=== PATIENT | male | born 1950 | race Caucasian/White ===

== ENCOUNTER → 2017-01-26 07:33 | Day surgery (SDC) | payer OTHER ==
[~2017-01-26 07:33] MED LIST: Buffered Lidocaine 1% SYRIN* 3 ML/SYR SYRINGE INTRADERM ONE; Bupivacaine 0.5% W/EPI SDV* 30 ML VIAL ONE; Clindamycin 900 MG IVPREMIX(* 900 MG/50 ML SDV IV ONE; Dexamethasone IV* 4 MG/ML 1 ML (4 MG) ONE; Famotidine IV* 10 MG/ML 2 ML (20 mg) IV ONE; Famotidine IV* 10 MG/ML 2 ML (20 mg) ONE; KETAMINE HCL* 50 MG/ML 10 ML VIAL ONE; Ketorolac INJ* 30 MG/ML 1 ML VIAL ONE; Lidocaine 1% INJ* 10 MG/ML 30 ML SDV ONE; Lidocaine 2% PF* 5 ML VIAL ONE; Metoclopramide TAB* 10 MG ONE; Metoclopramide TAB* 10 MG PO ONE; Midazolam* 1 MG/ML 2 ML VIAL (2 MG) ONE; Midazolam* 1 MG/ML 5 ML VIAL (5 MG) ONE; Ondansetron INJ* 2 MG/ML VIAL IV PRN; Ondansetron INJ* 2 MG/ML VIAL ONE; Propofol* 10 MG/ML 20 ML BTL IV PUSH ONE; fentaNYL* 50 MCG/ML 2 ML VIAL (100 MCG VIAL) IV PRN; fentaNYL* 50 MCG/ML 2 ML VIAL (100 MCG VIAL) ONE; oxyCODONE/Acetamin 5/325 MG* TAB PO PRN
--- NOTE | 2017-01-26 10:16 | SURGPN ---
Brief Operative Note - Surgery Procedures: Procedures OPERATIVE REPORT PRE-OP: Metastatic malignant melanoma Large subcutaneous mass left anterior chest POST-OP: Same PROCEDURE: Excision of large mass left anterior chest wall SURGEON: MD Natanael ANESTHESIA:Local with MAC Dr. Shine ASST: IVF:800 cc crystalloid EBL: min SPECIMEN: Left chest wall mass DRAIN: #8 WALE draina WOUND CLASS: One COMPLICATIONS: none TO PACU
[2017-01-26 10:54] VITALS: BP 114/71
--- NOTE | 2017-01-31 07:56 | OP ---
DATE OF OPERATION: 01/26/17 [facility] DATE OF : 54 SURGEON: Jordan Santoyo MD GREEN PIPEFITTER: None. ANESTHESIOLOGIST: Dr. Shine. ANESTHESIA: Local with monitored anesthesia care. PRE-OP DIAGNOSIS: Anterior superior left chest wall subcutaneous mass. POST-OP DIAGNOSIS: Anterior superior left chest wall subcutaneous mass. OPERATIVE PROCEDURE: Excision of subcutaneous 7 cm mass on the left anterior chest. ESTIMATED BLOOD LOSS: Minimal. WOUND CLASSIFICATION: One. COMPLICATIONS: None. SPECIMENS: A large 7 cm subcutaneous mass. BRIEF HISTORY: Fabrizio Vázquezlaura is a 66-year-old gentleman with a known history of longstanding metastatic melanoma being treated with the oncology service, who has had a growing subcutaneous mass in the left anterior chest. This is PET avid and presumed to be melanoma and has increased in size causing discomfort. He has requested excision with the understanding this is not a curative procedure, but a palliative procedure, to prevent further increase in pain, size, and appearance. DESCRIPTION OF PROCEDURE: Written informed consent was obtained. The left anterior chest was marked with indelible ink and preoperative antibiotics were administered. The patient was taken to the operating room, placed in the supine position. Sequential compression devices were placed in the lower extremities. Anesthesia was administered in the left upper chest, shoulder, and neck were prepped and draped in the usual sterile fashion. Time-out verification was completed. Next, 1% lidocaine mixed with 0.25% Marcaine was infiltrated over the palpable firm mass and a transverse incision of approximately 8 to 9 cm was made, carried down through the subcutaneous tissue. Here we entered a firm, darkish mass which I proceeded to excise with grossly negative margins including the surrounding fat. This did extend down to the pectoralis muscle and to achieve complete excision, I did remove the fascia and some of the underlying pectoralis muscle that was included with the specimen. This was quite firm and solid, and I highly suspect this to be a melanoma. The specimen was then sent to pathology. Hemostasis was assured. I placed a #7 WALE drain into the space and exited through a stab wound in the inferior portion of the chest wall. The wound was then closed in layers of 3-0 and 4-0 Polysorb suture. Steri-Strips and sterile dressings were applied. The patient tolerated the procedure well and was taken to the recovery room in stable condition. [id number]/[facility] #: [id number] EUGENIO
== END | disposition home or self-care (01) ==
LOC: OR 07:33
PROVIDERS: ATTEND Surgery
DX: C79.89 Secondary malignant neoplasm of other specified sites (principal); G47.33 Obstructive sleep apnea (adult) (pediatric); I10 Essential (primary) hypertension; E66.01 Morbid (severe) obesity due to excess calories; I25.10 Atherosclerotic heart disease of native coronary artery without angina pectoris; E78.00 Pure hypercholesterolemia, unspecified
CPT/HCPCS: 88307; A9270-GY; J1100; J1885; J2001; J2250; J2405; J2704; J3010

== ENCOUNTER 2017-03-20 19:34 | Emergency (ER) | payer OTHER ==
[2017-03-20] MEDS ORDERED: NS 0.9% 1000 ML* 1,000 ML IV ONE (19:47)
[2017-03-20 20:08] LABS: Urine Bacteria Absent (Absent); Urine Bilirubin Negative (Negative); Urine Glucose Negative (Negative); Urine Nitrite Negative (Negative)
--- NOTE | 2017-03-20 20:17 | RAD ---
INDICATION: Dizziness COMPARISON: CT January 24, 2017, chest x-ray February 08, 2016 TECHNIQUE: PA and lateral dual-energy views were obtained. FINDINGS: Bones/Soft Tissues: There are no acute bony findings. There is a right-sided [id number] catheter. Cardiomediastinal: The cardiomediastinal silhouette is normal. Lungs: There are multiple lung parenchymal masses with a dominant mass in the right lung base. This represents a previously documented imaging finding in this patient with melanoma. Pleura: There are no pleural effusions. Other: None IMPRESSION: NO ACUTE CHANGE. LUNG METASTASIS REPRESENTING A KNOWN FINDING
[2017-03-20 20:28] LABS: Hematocrit 30 % (42-52); Hemoglobin 9.8 g/dl (14.0-18.0); Mean Corpuscular HGB Conc 33 g/dl (31-36); Mean Corpuscular Hemoglobin 28 pg (27-31); Mean Corpuscular Volume 85 fL (80-94); Mean Platelet Volume 7 um3 (7.4-10.4); Red Blood Count 3.48 10^6/ul (4.0-5.4); Red Cell Distribution Width 15 % (10.5-15)
[2017-03-20 20:44] LABS: Troponin I 0.01 ng/mL (<0.04)
[2017-03-20 20:53] LABS: Albumin 3.7 g/dL (3.2-5.2); BUN/Creatinine Ratio 13.3 (8-20); Calcium 9.3 mg/dL (8.6-10.3); EGFR Non-African American 93.3 (>60); Globulin 3.6 g/dL (2-4); Potassium 4.1 mmol/L (3.5-5.0); Total Bilirubin 0.3 mg/dL (0.2-1.0); Total Protein 7.3 g/dL (6.4-8.9)
[2017-03-20 21:17] LABS: TSH (Thyroid Stimulating Horm) 6.83 mcIU/mL (0.34-5.60)
--- NOTE | 2017-03-20 21:46 | ED ---
cinthia Armenta Timothy, scribed for Norris Sterling MD on 03/20/17 at 1946 . Dizziness - HPI Summary HPI Summary: Fabrizio Rubalcava is a 66 yo male presenting to [facility] with dizziness since 1930 today. He states he also experienced tunnel vision. He states he also had a back muscle spasm. He was light-headed and diaphoretic, but did not experience syncope. The entire episode lasted approximately 10 minutes. He states he gets lightheaded when his BP exceeds 110. Pt states he had a similar experience yesterday, which was less intense. He has been on a new drug for melanoma Tx for the past week. His MHx includes HLD, HTN, COPD, asthma, Powerport surgery, CPAP, obstructive bowel, renal calculi, Melanoma stage IV, gamma knife radiation therapy 08/2016, shingles. - History Of Current Complaint Stated Complaint: DIZZINESS Time Seen by Provider: 03/20/17 19:42 Hx Obtained From: Patient Onset/Duration: Still Present Timing: Intermittent Episode Lasting - 10 minutes Severity Initially: Moderate Severity Currently: Moderate Character: Lightheaded, Dizzy Associated Signs And Symptoms: Positive: Diaphoresis, Visual Changes - tunnel vision, Other: - dizziness, back muscle spasm - Allergies/Home Medications Allergies/Adverse Reactions: Allergies Allergy/AdvReac Type Severity Reaction Status Date / Time Penicillins Allergy Mild Rash Verified 01/26/17 07:59 Atropine Allergy See Comment Verified 03/20/17 20:50 Dextromethorphan AdvReac Mild drowsy Verified 01/26/17 07:59 Hydrocodone [From Tussionex] AdvReac Mild See Comment Verified 01/26/17 07:59 Phenyltoloxamine AdvReac Mild See Comment Verified 01/26/17 07:59 [From Tussionex] PMH/Surg Hx/FS Hx/Imm Hx Endocrine/Hematology History: Denies: Hx Diabetes, Hx Systemic Lupus Erythematosus Cardiovascular History: Reports: Hx Hypercholesterolemia, Hx Hypertension - MANAGED BY MEDICATION Denies: Hx Congestive Heart Failure, Hx Pacemaker/ICD Respiratory History: Reports: Hx Asthma, Hx Chronic Obstructive Pulmonary Disease (COPD), Hx Sleep Apnea GI History: Reports: Hx Obstructive Bowel, Other GI Disorders - pancreatitis after last 2 surgeries History: Reports: Hx Kidney Stones - 5 years ago Denies: Hx Dialysis, Hx Renal Disease - calculi rt side Musculoskeletal History: Denies: Hx Rheumatoid Arthritis Sensory History: Reports: Hx Contacts or Glasses - glasses Denies: Hx Hearing Aid Opthamlomology History: Reports: Hx Contacts or Glasses - glasses Neurological History: Reports: Hx Headaches - r/t neck pain Psychiatric History: Denies: Hx Panic Disorder - Cancer History Cancer Type, Location and Year: MALIGNANT melanoma top of head 2007.reoccurrance 2013-multiple spots. Hx Chemotherapy: Yes - gamma knife radiation to tumor in brain 08/2016 - Surgical History Surgery Procedure, Year, and Place: 1957-TONSILECTOMY ILL. 1962- APPY HERNIA ILL. 1984- LEFT KNEE ARTHROSCOPY [facility] [place]. 1986 4 IMP 3RD MOLARS [facility] [place] 1986 VASECTOMY OFC HERNIA REPAIR. 1994 UMBILICAL HERNIA [facility] [place] 1996 ARTHROSCOPY [facility] [place] 2004 DEVIATED NASAL SEPTUM [facility] [place]. 2005 INGUINAL HERNIA [facility] [place] 2007 LAP ADRI FUNDLIPICATION STRONG. 2007 MALIGNANT MELANOMA excision, 05/2011 ventral hernia repair, 11/2012 shockwave lithrtripsy kidney stone, treatment for malignant melanoma 2013, 2014 POWER PORT RIGHT CHEST WALL. 02/14/16 RESECTION SMALL INTESTINE OBSTRUCTION, had pancreatitis, 08/2016 gamma knife radiation to brain [facility], 11/2016 [place], shunt in bile duct, then developed pancreatitis Hx Anesthesia Reactions: No Infectious Disease History: Reports: Hx Shingles Denies: Hx Clostridium Difficile, Hx Hepatitis, Hx Human Immunodeficiency Virus (HIV), Hx of Known/Suspected MRSA, Hx Tuberculosis, Hx Known/Suspected VRE , Hx Known/Suspected VRSA, History Other Infectious Disease, Traveled Outside the [place] in Last 30 Days - Family History Known Family History: Positive: Cardiac Disease, Hypertension Negative: Diabetes - Social History Alcohol Use: Rare Substance Use Type: Reports: None Hx Tobacco Use: No Smoking Status (MU): Never Smoked Tobacco Have You Smoked in the Last Year: No Review of Systems Positive: Skin Diaphoresis Positive: Other - tunnel vision ENT: Negative Cardiovascular: Negative Respiratory: Negative Gastrointestinal: Negative Genitourinary: Negative Musculoskeletal: Other - back muscle spasm Skin: Negative Neurological: Other - dizzy lightheaded Negative: Syncope Psychological: Normal All Other Systems Reviewed And Are Negative: Yes Physical Exam Triage Information Reviewed: Yes Vital Signs On Initial Exam: Initial Vitals Resp 10 03/20/17 19:47 Vital Signs Reviewed: Yes Appearance: Positive: Well-Appearing, No Pain Distress Skin: Positive: Warm Head/Face: Positive: Normal Head/Face Inspection Eyes: Positive: EOMI, BAY, Conjunctiva Clear ENT: Positive: Hearing grossly normal Neck: Positive: Supple, Nontender Respiratory/Lung Sounds: Positive: Clear to Auscultation, Breath Sounds Present Cardiovascular: Positive: RRR Abdomen Description: Positive: Nontender, Soft Bowel Sounds: Positive: Present Musculoskeletal: Positive: Strength/ROM Intact Neurological: Positive: Alert, Oriented to Person Place, Time Psychiatric: Positive: Affect/Mood Appropriate Diagnostics - Vital Signs Vital Signs Temp Pulse Resp BP Pulse Ox 03/20/17 20:48 98.4 F 59 14 133/75 99 03/20/17 20:00 53 17 100 03/20/17 19:58 141/76 03/20/17 19:47 10 - Laboratory Lab Results: Lab Results 03/20/17 03/20/17 03/20/17 Range/Units 19:55 20:20 20:20 WBC 8.0 (3.5-10.8) 10^3/ul RBC 3.48 L (4.0-5.4) 10^6/ul Hgb 9.8 L (14.0-18.0) g/dl Hct 30 L (42-52) % MCV 85 (80-94) fL MCH 28 (27-31) pg MCHC 33 (31-36) g/dl RDW 15 (10.5-15) % Plt Count 278 (150-450) 10^3/ul MPV 7 L (7.4-10.4) um3 Neut % (Auto) 68.4 (38-83) % Lymph % (Auto) 20.0 L (25-47) % Lipscomb % (Auto) 8.4 (1-9) % Eos % (Auto) 2.6 (0-6) % Baso % (Auto) 0.6 (0-2) % Absolute Neuts (auto) 5.5 (1.5-7.7) 10^3/ul Absolute Lymphs (auto) 1.6 (1.0-4.8) 10^3/ul Absolute Monos (auto) 0.7 (0-0.8) 10^3/ul Absolute Eos (auto) 0.2 (0-0.6) 10^3/ul Absolute Basos (auto) 0 (0-0.2) 10^3/ul Absolute Nucleated RBC 0 10^3/ul Nucleated RBC % 0 Sodium 137 (133-145) mmol/L Potassium 4.1 (3.5-5.0) mmol/L Chloride 105 (101-111) mmol/L Carbon Dioxide 26 (22-32) mmol/L Anion Gap 6 (2-11) mmol/L BUN 11 (6-24) mg/dL Creatinine 0.83 (0.67-1.17) mg/dL Est GFR ( Amer) 120.0 (>60) Est GFR (Non-Af Amer) 93.3 (>60) BUN/Creatinine Ratio 13.3 (8-20) Glucose 122 H (70-100) mg/dL Lactic Acid (0.5-2.0) mmol/L Calcium 9.3 (8.6-10.3) mg/dL Magnesium 2.0 (1.9-2.7) mg/dL Total Bilirubin 0.30 (0.2-1.0) mg/dL AST 31 (13-39) U/L ALT 20 (7-52) U/L Alkaline Phosphatase 226 H (34-104) U/L Troponin I 0.01 (<0.04) ng/mL Total Protein 7.3 (6.4-8.9) g/dL Albumin 3.7 (3.2-5.2) g/dL Globulin 3.6 (2-4) g/dL Albumin/Globulin Ratio 1.0 (1-3) TSH 6.83 H (0.34-5.60) mcIU/mL Urine Color Yellow Urine Appearance Cloudy Urine pH 7.0 (5-9) Ur Specific Hazel 1.019 (1.010-1.030) Urine Protein 1+(30 mg/dl) H (Negative) Urine Ketones Negative (Negative) Urine Blood Negative (Negative) Urine Nitrate Negative (Negative) Urine Bilirubin Negative (Negative) Urine Urobilinogen Negative (Negative) Ur Leukocyte Esterase Negative (Negative) Urine WBC (Auto) Trace(0-5/hpf) (Absent) Urine RBC (Auto) 1+(3-5/hpf) H (Absent) Ur Squamous Epith Cells Present H (Absent) Urine Bacteria Absent (Absent) Urine Glucose Negative (Negative) 03/20/17 Range/Units 20:20 WBC (3.5-10.8) 10^3/ul RBC (4.0-5.4) 10^6/ul Hgb (14.0-18.0) g/dl Hct (42-52) % MCV (80-94) fL MCH (27-31) pg MCHC (31-36) g/dl RDW (10.5-15) % Plt Count (150-450) 10^3/ul MPV (7.4-10.4) um3 Neut % (Auto) (38-83) % Lymph % (Auto) (25-47) % Lipscomb % (Auto) (1-9) % Eos % (Auto) (0-6) % Baso % (Auto) (0-2) % Absolute Neuts (auto) (1.5-7.7) 10^3/ul Absolute Lymphs (auto) (1.0-4.8) 10^3/ul Absolute Monos (auto) (0-0.8) 10^3/ul Absolute Eos (auto) (0-0.6) 10^3/ul Absolute Basos (auto) (0-0.2) 10^3/ul Absolute Nucleated RBC 10^3/ul Nucleated RBC % Sodium (133-145) mmol/L Potassium (3.5-5.0) mmol/L Chloride (101-111) mmol/L Carbon Dioxide (22-32) mmol/L Anion Gap (2-11) mmol/L BUN (6-24) mg/dL Creatinine (0.67-1.17) mg/dL Est GFR ( Amer) (>60) Est GFR (Non-Af Amer) (>60) BUN/Creatinine Ratio (8-20) Glucose (70-100) mg/dL Lactic Acid 0.7 (0.5-2.0) mmol/L Calcium (8.6-10.3) mg/dL Magnesium (1.9-2.7) mg/dL Total Bilirubin (0.2-1.0) mg/dL AST (13-39) U/L ALT (7-52) U/L Alkaline Phosphatase (34-104) U/L Troponin I (<0.04) ng/mL Total Protein (6.4-8.9) g/dL Albumin (3.2-5.2) g/dL Globulin (2-4) g/dL Albumin/Globulin Ratio (1-3) TSH (0.34-5.60) mcIU/mL Urine Color Urine Appearance Urine pH (5-9) Ur Specific Hazel (1.010-1.030) Urine Protein (Negative) Urine Ketones (Negative) Urine Blood (Negative) Urine Nitrate (Negative) Urine Bilirubin (Negative) Urine Urobilinogen (Negative) Ur Leukocyte Esterase (Negative) Urine WBC (Auto) (Absent) Urine RBC (Auto) (Absent) Ur Squamous Epith Cells (Absent) Urine Bacteria (Absent) Urine Glucose (Negative) Result Diagrams: 03/20/17 20:20 03/20/17 20:20 Lab Statement: Any lab studies that have been ordered have been reviewed, and results considered in the medical decision making process. - Radiology CXR Xray Interpretation: No Acute Changes - IMPRESSION: NO ACUTE CHANGE. LUNG METASTASIS REPRESENTING A KNOWN FINDING Radiology Interpretation Completed By: Radiologist - EKG 2043 Cardiac Rate: NL - 55 BPM EKG Interpretation: NSR @ 55 BPM. Normal EKG. Re-Evaluation - Re-Evaluation First Eval Change: Improved - feels well, resulkts d/.w pt Dizzy Course/Dx - Course Assessment/Plan: Fabrizio Rubalcava is a 66 yo male presenting to [facility] with lightheadedness, tunnel vision, and diaphoresis for 10 mniutes today, accompanied by a spasm in his back muscles. He has stage IV melanoma. In the ED he received IV fluids. His CXR suggests no acute findings. His EKG suggests a normal EKG. After clinical examination and review of his lab and imaging studies , he will be discharged home with dizziness with appropriate instructions. - Diagnoses Provider Diagnoses: Dizziness Discharge - Discharge Plan Condition: Stable Disposition: HOME Patient Education Materials: Dizziness (ED) Referrals: Tiburcio Archibald MD [Primary Care Provider] - 2 Days Additional Instructions: Please follow up with your primary care physician regarding our visit to the emergency department today. Return to the emergency department with any new or recurring symptoms. The documentation as recorded by the cinthia katz Timothy accurately reflects the service I personally performed and the decisions made by me, Norris Sterling MD.
[2017-03-20 22:02] VITALS: BP 134/81
== END 2017-03-20 22:16 | disposition home or self-care (01) ==
LOC: ED 19:34
DX: R42 Dizziness and giddiness (principal); R61 Generalized hyperhidrosis
CPT/HCPCS: 36415; 71020; 80053; 81003; 81015; 83605; 83735; 84443; 84484; 85025; 93005; 99283

== ENCOUNTER 2017-06-08 23:40 | Inpatient (IN) | payer OTHER ==
[2017-06-09] MEDS ORDERED: NS 0.9% 1000 ML* 1,000 ML IV ONE (01:08)
[2017-06-09] MEDS ORDERED: Ondansetron INJ* 2 MG/ML VIAL IV ONE (01:10)
[2017-06-09] MEDS ORDERED: HYDROmorphone* 1 MG/ML 1 ML SYR IV SLOW PU ONE (01:10)
[2017-06-09 03:22] LABS: Hematocrit 28 % (42-52); Mean Corpuscular HGB Conc 32 g/dl (31-36); Mean Corpuscular Hemoglobin 26 pg (27-31); Mean Corpuscular Volume 80 fL (80-94); Mean Platelet Volume 8 um3 (7.4-10.4); Red Blood Count 3.51 10^6/ul (4.0-5.4); Red Cell Distribution Width 17 % (10.5-15); White Blood Count 7.3 10^3/ul (3.5-10.8)
[2017-06-09 03:43] LABS: Albumin 3.3 g/dL (3.2-5.2); BUN/Creatinine Ratio 11.5 (8-20); C Reactive Protein 59.51 mg/L (< 5.00); Calcium 9.2 mg/dL (8.6-10.3); EGFR African American 113.3 (>60); EGFR Non-African American 88.1 (>60); Globulin 3.7 g/dL (2-4); Potassium 3.7 mmol/L (3.5-5.0); Total Bilirubin 0.7 mg/dL (0.2-1.0)
[2017-06-09 03:44] LABS: Troponin I 0.01 ng/mL (<0.04)
[2017-06-09] MEDS ORDERED: Iohexol 300* (CONTRAST) 10 ML SDV IV ONE (04:01)
[2017-06-09 04:24] LABS: Urine Bilirubin Negative (Negative); Urine Glucose Negative (Negative); Urine Nitrite Negative (Negative)
--- NOTE | 2017-06-09 06:59 | ED ---
Anand Armenta SooYoung, scribed for Jose Ramon Cavazos on 06/09/17 at 0105 . Abdominal Pain/Male - HPI Summary HPI Summary: A 67 y/o M presents to ED with diffuse abd pain onset today SYSTEMS SPEC. Pert PMHx: pt had his bile stent replaced yesterday. He has it replaced every three months, and they admit him for observation for a night. He was released this afternoon, and on the drive home from [place] he began experience abd pain. Pt states it feels like he has gas. Rates his pain as 7 out of 10. Denies n/v. He took Tylenol at approx 2330. PMHx: pancreatitis, 6 months ago. Melanoma. - History of Current Complaint Chief Complaint: EDAbdPain Stated Complaint: ABD PAIN Time Seen by Provider: 06/09/17 00:56 Hx Obtained From: Patient Onset/Duration: Lasting Hours, Still Present Timing: Constant Severity Initially: Moderate Severity Currently: Moderate Pain Intensity: 7 Pain Scale Used: 0-10 Numeric Location: Diffuse, Umbilical Associated Signs And Symptoms: Negative: Nausea, Vomiting - Allergies/Home Medications Allergies/Adverse Reactions: Allergies Allergy/AdvReac Type Severity Reaction Status Date / Time Penicillins Allergy Mild Rash Verified 06/09/17 01:00 Atropine Allergy See Comment Verified 06/09/17 01:00 Dextromethorphan AdvReac Mild drowsy Verified 06/09/17 01:00 Hydrocodone [From Tussionex] AdvReac Mild See Comment Verified 06/09/17 01:00 Phenyltoloxamine AdvReac Mild See Comment Verified 06/09/17 01:00 [From Tussionex] PMH/Surg Hx/FS Hx/Imm Hx Previously Healthy: No Endocrine/Hematology History: Denies: Hx Diabetes, Hx Systemic Lupus Erythematosus Cardiovascular History: Reports: Hx Hypercholesterolemia, Hx Hypertension - MANAGED BY MEDICATION Denies: Hx Congestive Heart Failure, Hx Pacemaker/ICD Respiratory History: Reports: Hx Asthma, Hx Chronic Obstructive Pulmonary Disease (COPD), Hx Sleep Apnea GI History: Reports: Hx Obstructive Bowel, Other GI Disorders - pancreatitis after last 2 surgeries History: Reports: Hx Kidney Stones - 5 years ago Denies: Hx Dialysis, Hx Renal Disease - calculi rt side Musculoskeletal History: Denies: Hx Rheumatoid Arthritis Sensory History: Reports: Hx Contacts or Glasses - glasses Denies: Hx Hearing Aid Opthamlomology History: Reports: Hx Contacts or Glasses - glasses Neurological History: Reports: Hx Headaches - r/t neck pain Psychiatric History: Denies: Hx Panic Disorder - Cancer History Cancer Type, Location and Year: MALIGNANT melanoma top of head 2007.reoccurrance 2013-multiple spots. Hx Chemotherapy: Yes - gamma knife radiation to tumor in brain 08/2016 - Surgical History Surgery Procedure, Year, and Place: 1957-TONSILECTOMY ILL. 1962- APPY HERNIA ILL. 1984- LEFT KNEE ARTHROSCOPY [facility] [place]. 1986 4 IMP 3RD [facility] 1986 VASECTOMY OFC HERNIA REPAIR. 1994 UMBILICAL HERNIA [facility] [place] 1996 ARTHROSCOPY [facility] [place] 2004 DEVIATED NASAL SEPTUM [facility] [place]. 2005 INGUINAL HERNIA [facility] [place] 2007 LAP ADRI FUNDLIPICATION STRONG. 2007 MALIGNANT MELANOMA excision, 05/2011 ventral hernia repair, 11/2012 shockwave lithrtripsy kidney stone, treatment for malignant melanoma 2013, 2014 POWER PORT RIGHT CHEST WALL. 02/14/16 RESECTION SMALL INTESTINE OBSTRUCTION, had pancreatitis, 08/2016 gamma knife radiation to brain [facility], 11/2016 [facility], shunt in bile duct, then developed pancreatitis Hx Anesthesia Reactions: No - Immunization History Date of Tetanus Vaccine: utd Date of Influenza Vaccine: utd Infectious Disease History: No Infectious Disease History: Reports: Hx Shingles Denies: Hx Clostridium Difficile, Hx Hepatitis, Hx Human Immunodeficiency Virus (HIV), Hx of Known/Suspected MRSA, Hx Tuberculosis, Hx Known/Suspected VRE , Hx Known/Suspected VRSA, History Other Infectious Disease, Traveled Outside the [place] in Last 30 Days - Family History Known Family History: Positive: Cardiac Disease, Hypertension Negative: Diabetes - Social History Occupation: Employed Full-time Lives: With Family Alcohol Use: Rare Hx Substance Use: No Substance Use Type: Reports: None Hx Tobacco Use: No Smoking Status (MU): Never Smoked Tobacco Have You Smoked in the Last Year: No Review of Systems Negative: Fever Positive: Abdominal Pain. Negative: Vomiting, Nausea All Other Systems Reviewed And Are Negative: Yes Physical Exam Triage Information Reviewed: Yes Vital Signs On Initial Exam: Initial Vitals Temp Pulse Resp BP Pulse Ox 97.2 F 100 16 135/85 100 06/08/17 23:43 06/08/17 23:43 06/08/17 23:43 06/08/17 23:43 06/08/17 23:43 Vital Signs Reviewed: Yes Appearance: Positive: Well-Appearing, No Pain Distress Skin: Positive: Warm, Skin Color Reflects Adequate Perfusion, Dry Head/Face: Positive: Normal Head/Face Inspection Eyes: Positive: EOMI, BAY ENT: Positive: Normal ENT inspection Neck: Positive: Supple, Nontender Respiratory/Lung Sounds: Positive: Clear to Auscultation, Breath Sounds Present Cardiovascular: Positive: RRR, Pulses are Symmetrical in both Upper and Lower Extremities Abdomen Description: Positive: Soft, Distended, Other: - abd has diffuse tenderness Bowel Sounds: Positive: Present Musculoskeletal: Positive: Normal, Strength/ROM Intact Neurological: Positive: Normal, Sensory/Motor Intact, Alert, Oriented to Person Place, Time - [place] Coma Scale Coma Scale Total: 15 Diagnostics - Vital Signs Vital Signs Temp Pulse Resp BP Pulse Ox 06/08/17 23:47 98.1 F 72 16 136/85 100 06/08/17 23:43 97.2 F 100 16 135/85 100 - Laboratory Result Diagrams: 06/09/17 03:10 06/09/17 03:10 Lab Statement: Any lab studies that have been ordered have been reviewed, and results considered in the medical decision making process. - CT ABD/PEL CT CT Interpretation: Positive (See Comments) - IMPRESSION: SBO. See [facility] for full report. CT Interpretation Completed By: Radiologist Abdominal Pain Fem Course/Dx - Course Course Of Treatment: A 67 y/o M presents to ED with diffuse abd pain onset today SYSTEMS SPEC. Pert PMHx: pt had his bile stent replaced yesterday. He has it replaced every three months, and they admit him for observation for a night. He was released this afternoon, and on the drive home from [place] he began experience abd pain. Pt states it feels like he has gas. Rates his pain as 7 out of 10. Denies n/v. He took Tylenol at approx 2330. PMHx: pancreatitis, 6 months ago. Melanoma. Pt given fluids, diluadid and zofran in ED. Bloodwork results were without any significant abnormalities except alkaline phosphatase of 303; CRP of 59.51. UA results were negative except trace ketones present. ABD /PEL CT shows SBO. See [facility] for full report. Consulted with surgery recommends admission. SO to Dr. Harper pending consult with hospitalist. - Diagnoses Provider Diagnoses: Small bowel obstruction - Provider Notifications Discussed Care Of Patient With: Jordan Santoyo - Surgery Time Discussed With Above Provider: 06:47 Instructed by Provider To: Admit As Inpatient - Recommends admission Discharge - Discharge Plan Condition: Stable Disposition: OTHER Discharge Disposition Comment: SO to Dr. Harper pending consult with hospitalist Referrals: Tiburcio Archibald MD [Primary Care Provider] - The documentation as recorded by the Anand katz SooYoung accurately reflects the service I personally performed and the decisions made by , Jose Ramon Cavazos.
--- NOTE | 2017-06-09 08:13 | RAD ---
CLINICAL HISTORY: Abdominal pain, pancreatitis, history of malignant melanoma COMPARISON: January 24, 2017 TECHNIQUE: Multiple contiguous axial CT scans were obtained of the abdomen and pelvis after the administration of intravenous contrast. Coronal and sagittal multiplanar reformations are submitted for review. Oral contrast was administered. Delayed images were obtained through the abdomen and pelvis. FINDINGS: LUNG BASES: Again noted are nodules of the right lower lobe, progressed compared to the previous examination. LIVER: The liver is diffusely low in attenuation compared to the spleen. There are no focal hepatic parenchymal masses. BILE DUCTS: There is pneumobilia. A common duct stent is noted. GALLBLADDER: The gallbladder is normal, without pericholecystic inflammatory change. PANCREAS: There is ill-defined low attenuation of the pancreatic head at the level of the common duct. A biliary stent is noted as noted above, there is peripancreatic fluid along the tail of pancreas and extending along the anterior perirenal fascia. SPLEEN: Normal in size and appearance. UPPER GI TRACT: Evaluation of the gastrointestinal tract is limited by incomplete gastric distention. The upper GI tract is unremarkable. SMALL BOWEL AND MESENTERY: There is diffuse distention and dilatation of small bowel with a transition point to decompressed small bowel in the right lower abdomen. COLON: The colon is decompressed. ADRENALS: Normal bilaterally. KIDNEYS: Again noted is level related mass of lower pole of left kidney. This is increased in size compared to the previous examination. BLADDER: The bladder is incompletely distended but is grossly normal. PELVIC ORGANS: The prostate gland is normal. The seminal vesicles are symmetric. AORTA: The aorta is normal. IVC: Unremarkable LYMPH NODES: There are pathologic right iliac chain lymph node similar to the previous examination. ABDOMINAL WALL: There is soft tissue nodularity along the peritoneum is seen on axial image 87 and axial image 1.3 at the level of the umbilicus and supraumbilical abdominal wall. BONES AND SOFT TISSUES: Degenerative changes are noted OTHER: None IMPRESSION: 1. DILATED LOOPS OF BOWEL WITH TRANSITION POINT TO DECOMPRESSED SMALL BOWEL CONSISTENT WITH SMALL BOWEL OBSTRUCTION. 2. THERE HAS BEEN INTERVAL PROGRESSION OF A LEFT RENAL MASS IN RIGHT LOWER LOBE NODULES. THERE HAS BEEN INTERVAL DEVELOPMENT OF NODULARITY ALONG THE PERITONEAL OF THE ANTERIOR ABDOMINAL WALL WITH PROGRESSION OF METASTATIC DISEASE. 3. A BILIARY STENT IS NOTED. THERE IS PNEUMOBILIA. 4. LOCULATED PERIPANCREATIC FLUID COLLECTION CONSISTENT WITH DEVELOPING PSEUDOCYST. 5. THERE IS ILL-DEFINED SOFT TISSUE IN THE PANCREATIC HEAD SURROUNDING A BILIARY STENT. THIS MAY BE INFLAMMATORY OR REPRESENT METASTATIC DISEASE GIVEN THE HISTORY OF MALIGNANCY.
[2017-06-09] MEDS ORDERED: Acetaminophen SUPP* 650 MG SUPP PR PRN (10:23)
[2017-06-09] MEDS ORDERED: Metoclopramide IV* 5 MG/ML 2 ML VIAL IV PRN (10:24)
[2017-06-09] MEDS ORDERED: Ketorolac INJ* 15 MG/ML 1 ML VIAL IV PUSH PRN (10:25)
[2017-06-09 11:16] LABS: Magnesium 1.8 mg/dL (1.9-2.7)
--- NOTE | 2017-06-09 11:43 | CONS ---
CC: [facility]; Dr. Tiburcio Archibald; Dr. Easton Weathers. * CONSULTATION REPORT: DATE OF CONSULT: 06/09/17 REFERRING PROVIDER: Dr. Cavazos, emergency room physician. REASON FOR CONSULTATION: Small-bowel obstruction. 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 Weathers, who has a known metastatic malignant melanoma that has been treated for many years. His surgical history is significant for having a small-bowel obstruction that was treated with a laparotomy in January 2016, where there was noted to be a metastatic involvement of small bowel requiring a small bowel resection for treatment of this obstruction. He has done well. He has been followed by both Dr. Weathers as well as the oncologist at [facility] in [place] and he has recently been on immunotherapy. He has had biliary stents placed due to obstruction as well as ureteral stents placed in the past. He recently was in [place] where he underwent a routine stent placement with the ERCP. He was doing well and he was discharged home yesterday morning, drove back from [place], developed some abdominal crampiness with nausea and abdominal distention. The pain became more severe and he presented to the emergency room here early this morning. He states that he has been passing some flatus. He has had problems with constipation recently. He states that there has been concern about a persistent anemia requiring blood transfusion almost every several weeks of 2 units. He was to be scheduled for a colonoscopy to rule out source of blood loss, but this has not been arranged yet. In the emergency room, he was noted to be distended with generalized mild abdominal discomfort. CT scan of the abdomen and pelvis was obtained with oral and IV contrast, which showed a markedly distended stomach and proximal small bowel with distally collapsed small bowel with findings consistent with an acute small-bowel obstruction secondary to either adhesive disease or probable metastatic disease , which is known to be intraabdominal. There was no free air or significant amount of free fluid. The patient will be admitted to Dr. Weathers's oncology service with surgical consultation then obtained. PAST MEDICAL HISTORY: 1. Obstructive sleep apnea. 2. Metastatic melanoma. 3. Hypertension. 4. Obesity. 5. Coronary artery disease. 6. Hypercholesterolemia. PAST SURGICAL HISTORY: 1. Laparoscopic Shannan fundoplication. 2. Left inguinal hernia repair. 3. PowerPort insertion. 4. Resections of various melanomas along the abdomen, abdominal wall, chest wall, and scalp. 5. Appendectomy. 6. Abdominal wall hernia with mesh. MEDICATIONS: Include: 1. Oxycodone. 2. Levitra. 3. Flomax. 4. Singulair. 5. Nasonex. 6. Lopressor. 7. Flovent. 8. Susan. 9. Astelin. 10. Lipitor. ALLERGIES: PENICILLIN, TUSSIONEX, MOLD, COW'S MILK SOCIAL HISTORY: He is . 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 He does not use tobacco or alcohol. PHYSICAL EXAM: A well-developed, slightly overweight male, appears pale, but in no apparent distress. He is afebrile, pulse 85, blood pressure 133/81. Lungs were clear to auscultation with normal respiratory effort. His abdomen is soft, but distended. He had diminished bowel sounds throughout. He has well healed midline incision. There was an incisional hernia just above the umbilicus with the fascial defect of about 3 to 4 cm; however, this was easily reducible and only mildly tender. I appreciate no evidence of incarceration or strangulation. There is no generalized peritoneal irritation. LABORATORY DATA: Laboratory values include white blood cell count of 7, hemoglobin of 9, and MCV of 80. BUN and creatinine of 10 and 0.87. Lactic acid 0.8. C- reactive protein of 59. I did review the CT scan of the abdomen and pelvis. This does show marked distention of the proximal small bowel and stomach with some distally collapsed small bowel. These are consistent with a small-bowel obstruction possibly secondary to adhesive disease versus metastatic disease. Also we noted unknown left renal mass and some chronic changes in the area of the pancreas. He has a biliary stent in place. IMPRESSION: Small-bowel obstruction, acute. This may be secondary to acute adhesive disease, but the possibility of a metastatic melanoma exists. He has been doing fairly well and this was of a rather sudden onset, hopefully this will be adhesive disease and may respond to nonoperative management. PLAN: Plan is for him to be admitted to the oncology service. Nasogastric tube has been inserted. We will keep him n.p.o. and start him on IV fluids. Abdominal x-rays will be obtained in the morning. We will follow him clinically, certainly without improvement on the next 48 to 72 hours, decision will need to be made concerning possible surgical intervention. I discussed all this with the patient and his here at the bedside in the emergency room and they are well aware of the care and plan. [id number]/[facility] #: [id number] MTDD
--- NOTE | 2017-06-09 12:00 | HP ---
HISTORY AND PHYSICAL: DATE OF ADMISSION: 06/09/17 REASON FOR ADMISSION: Small bowel obstruction. HISTORY OF PRESENT ILLNESS: A 67-year-old male with longstanding history of metastatic melanoma. He has most recently been treated at the [facility] on clinical trial. He has a history of common bile duct obstruction and has stents placed every 3 months. He was at [facility] on , 2 days prior to admission, for stent replacement. This was done successfully and he stayed in the hospital overnight to be discharged Sunday morning. He went home yesterday and at that time was feeling well, eating and passing gas. He also had a bowel movement on Sunday morning. Yesterday evening, he started developing increasing abdominal distention and was not passing gas. He developed abdominal pain up to 7/10 that would come in waves. He had nausea. These symptoms were similar to prior small bowel obstruction, but were not like when he has had pancreatitis in the past. He came to the emergency room. He had a CT scan of the abdomen and pelvis. The CT showed dilated loops with a transition point in the right lower abdomen of the small bowel. Residual small bowel and colon was decompressed. It is not clear that there is a mass right at the transition point. He has history of peritoneal spread of his cancer and compared to January CT scan done at [facility], these were relatively stable. Some areas of modest progression, but no new lesions that I could see. He also has a lower pulmonary nodule, which is stable to decreased from his [place] CT scan. No evidence of biliary obstruction. He has had CBC with a white count 7.3, hemoglobin 9, MCV 80, platelets 311, and chemistries with a mildly elevated glucose of 149 and alkaline phosphatase of 303, otherwise unremarkable, lipase of 20. PAST MEDICAL HISTORY: 1. Metastatic melanoma. Followed in our clinic since 2008. He had recurrent disease in 2012. He has been treated with multiple courses of immunotherapy including nivolumab and ipilimumab, and nivolumab single agent, rechallenge of ipilimumab and nivolumab. He has had response to multiple immunotherapies, but consistent progression on PD1 agent alone. He is now on clinical trial with Endostat and pembrolizumab. He is on trial studies since February and has had stable CT scans thus far. 2. History of GI bleed. Multiple episodes of GI bleed in the past and recently has had several transfusions up at [facility], remains guaiac positive. 3. Hypertension. 4. Asthma. 5. Chronic allergies. 6. High cholesterol. PAST SURGICAL HISTORY: Multiple valve surgeries in the past including resection for small bowel obstruction in February 2016 at [facility]. MEDICATIONS: 1. Sucralfate 10 mL q.6. 2. Ramipril 2.5 mg daily. 3. Poly Iron 150 a day. 4. Pantoprazole 40 b.i.d. 5. Pancreas 36,000 units with meals. 6. Multivitamin once a day. 7. Synthroid 175 mcg a day. 8. Levemir Insulin 7 units in the morning and 5 units at night. 9. NovoLog insulin 1-5 units depending on her blood sugar when she is eating. 10. Docusate 100 b.i.d. 11. Vitamin D 2000 a day. 12. Calcium supplement. 13. Lipitor 10 mg a day. 14. Atenolol 25 mg daily. 15. Ascorbic acid 500 mg a day. 16. Tylenol 650 q.4 p.r.n. ALLERGIES: PENICILLIN, ATROPEN, DEXAMETHASONE, HYDROCODONE and NARCOTICS cause severe constipation. FAMILY HISTORY: He has a family history of narcotic-induced constipation in his father. No significant malignancy history. 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 He is and his is his primary social support. No smoking. No drinking. REVIEW OF SYSTEMS: Abdominal distention, nausea. Some fatigue. He has had shortness of breath over the past several months intermittently whenever he becomes anemic. R86-cydiv review of system is otherwise negative. PHYSICAL EXAMINATION VITAL SIGNS: Temperature 98.1, pulse 72, respirations 16, BP 142/86. HEENT: Mucosa moist. No lesions. Conjunctivae pale. NECK: No cervical or supraclavicular lymphadenopathy. LUNGS: Clear to auscultation bilaterally. HEART: Regular rate and rhythm. S1, S2. No murmurs, rubs or gallops. ABDOMEN: Distended. No bowel sounds. He is moderately tender. He has a ventral hernia. No rebound or guarding. EXTREMITIES: No clubbing, cyanosis, or edema and good pulses x4. NEUROLOGIC: Grossly nonfocal, alert and oriented x3. SKIN: No palpable or cutaneous lesions, but full exam not done. LABORATORY DATA: As noted above. ASSESSMENT AND PLAN: A 67-year-old male with history of metastatic melanoma with peritoneal disease. He has had multiple lines of immunotherapy and currently on trial at [facility], presents with small bowel obstruction. Differentials for small bowel obstruction include adhesions as well as progressive peritoneal disease. I agree with Dr. Santoyo that observation is the best course. 1. Small bowel obstruction: We will put him on IV fluids, n.p.o., and we will keep the NG tube. Check a chest and abdominal x-ray tomorrow morning. I am hopeful that he clears up. We will hold on TPN at this time, but may start over the weekend if he shows no signs of improvement. We will place him on IV Protonix. 2. Pain: No narcotics. We have written for Tylenol suppository and we can use IV Toradol sparingly, no history of GI bleed and normal renal function. 3. Fluids, electrolytes, and nutrition: He will be on IV fluids. Potassium slightly over 3.7, we will check magnesium and give IV repletion as needed. 4. Melanoma. Currently on clinical trial and we will send all records to [facility]. 5. GI bleed. Hemoglobin 9 today. We will check retic count and iron studies. Consider IV iron while he is here. He was scheduled for an outpatient colonoscopy to look for a lower GI source of blood loss, and then we will reschedule that test after this event resolves. 6. Full code. Remains with a good performance status. 7. High-risk DVT and prophylaxis per protocol. [id number]/[facility] #: [id number] MTDD
[2017-06-09 12:05] LABS: Ferritin 12.3 ng/mL (24-336)
[2017-06-09] MEDS: NS 0.9% 1000 ML* 1,000 ML IV SCH ×2 (12:56→22:52)
[2017-06-09] MEDS: Enoxaparin(*) 40 MG/0.4 ML SYR SUBCUT SCH (12:59)
[2017-06-10 07:17] LABS: Corrected Retic Count 1.7 % (0.5-1.5); Immature Retic Fraction 0.58
[2017-06-10] MEDS ORDERED: Magnesium Sulfate 2 GM IV* 2 GM/50 ML BAG IVPB ONE (07:17)
[2017-06-10 08:11] LABS: Calcium 8.7 mg/dL (8.6-10.3); EGFR African American 110.3 (>60); EGFR Non-African American 85.8 (>60); Magnesium 1.8 mg/dL (1.9-2.7); Potassium 3.5 mmol/L (3.5-5.0)
[2017-06-10 08:22] LABS: TSH (Thyroid Stimulating Horm) 1.84 mcIU/mL (0.34-5.60)
[2017-06-10] MEDS: NS 0.9% 1000 ML* 1,000 ML IV SCH ×2 (08:33→20:31)
[2017-06-10 08:56] LABS: Hematocrit 24 % (42-52); Hemoglobin 7.7 g/dl (14.0-18.0); Mean Corpuscular Hemoglobin 26 pg (27-31); Mean Corpuscular Volume 81 fL (80-94); Red Blood Count 2.99 10^6/ul (4.0-5.4); White Blood Count 4.7 10^3/ul (3.5-10.8)
[2017-06-10 08:57] LABS: Mean Corpuscular HGB Conc 32 g/dl (31-36); Mean Platelet Volume 8 um3 (7.4-10.4); Red Cell Distribution Width 18 % (10.5-15)
--- NOTE | 2017-06-10 10:03 | RAD ---
INDICATION: Small bowel obstruction COMPARISON: CT June 09, 2017 TECHNIQUE: Erect and supine views of the abdomen are submitted. FINDINGS: Bones: There are no acute bony findings. Soft tissues: The soft tissues appear normal. The psoas margins are sharp. Bowel gas pattern: The stomach is decompressed by nasogastric tube. There are several dilated loops of small bowel scattered air-fluid levels can consistent with a partial small bowel obstruction. The degree of dilatation is less pronounced than at the time of recent CT imaging. There is contrast within the colon which is normal in caliber. Calcifications: There are no abnormal calcifications. Other: There is a biliary stent. IMPRESSION: PARTIAL SMALL BOWEL OBSTRUCTION WITH IMPROVEMENT. SUGGEST CONTINUED FOLLOW-UP.
--- NOTE | 2017-06-10 10:22 | PN ---
Progress Note - Progress Note Date of Service: 06/10/17 SOAP: Subjective: [Better, has been passing gas and has less pain in abd. Pain to 2/10 down from 7 /10. Less distended Acetaminophen (Tylenol Supp*) 650 mg DE Q4H PRN PRN Reason: PAIN Enoxaparin Sodium (Lovenox(*)) 40 mg SUBCUT Q24H [facility] Last Admin: 06/09/17 12:59 Dose: 40 mg Sodium Chloride (Ns 0.9% 1000 Ml*) 1,000 mls @ 100 mls/hr IV PER RATE [facility] Last Admin: 06/10/17 08:33 Dose: 100 mls/hr Ferric Sodium Gluconate Complex 125 mg/ Sodium Chloride 110 mls @ 110 mls/hr IVPB DAILY [facility] Stop: 06/14/17 09:59 Magnesium Sulfate 3 gm/ Sodium (Chloride) 106 mls @ 53 mls/hr IVPB ONCE ONE Stop: 06/10/17 10:33 Last Admin: 06/10/17 10:15 Dose: Not Given Ketorolac Tromethamine (Toradol Inj*) 15 mg IV PUSH Q6H PRN PRN Reason: PAIN Metoclopramide HCl (Reglan Iv*) 10 mg IV Q6H PRN PRN Reason: NAUSEA/VOMITING Pantoprazole Sodium (Protonix Iv*) 40 mg IV DAILY [facility] ] Objective: [ Vital Signs Temp Pulse Resp BP Pulse Ox 97.6 F 71 18 143/63 95 06/10/17 07:36 06/10/17 07:36 06/10/17 07:52 06/10/17 07:36 06/10/17 07:36 HEENT - NGT, clear fluid CTA RRR S1S2 Abd - less distended, scattered bs. non tender Ext - no edema, warm ] Assessment: []67 year old with metastatic melanoma and peritoneal disease. SBO after CBD stent. Improved over past 12 yrs. Plan: []1. Check ABD XR today 2. Clamp NGT now and follow through day. If no nausea this evening will pull and try clear liquids 3. Mg IV 2 gm today.
[2017-06-10] MEDS: Pantoprazole IV* 40 MG IV SCH (10:34)
[2017-06-10] MEDS: Enoxaparin(*) 40 MG/0.4 ML SYR SUBCUT SCH (10:34)
--- NOTE | 2017-06-10 13:27 | PN ---
Progress Note - Progress Note Date of Service: 06/10/17 SOAP: Subjective: He is passing flatus and had his NGT clamped earlier. He is having crampy pain and reports tenderness, but improved from yesterday. No nausea. He states he cannot vomit due to prior Shannan. Objective: Vital Signs Temp 97.7 F 06/10/17 11:38 Pulse 78 06/10/17 11:38 Resp 14 06/10/17 11:38 BP 140/63 06/10/17 11:38 Pulse Ox 95 06/10/17 11:38 NAD Abd: Soft, min distended, min tender. Intake & Output 06/09/17 06/10/17 06/10/17 18:59 06:59 18:59 Intake Total 0 980 Output Total 950 2050 300 Balance -950 -1070 -300 Weight 215 lb Intake: IV Fluids 980 NS (0.9%) 980 Oral 0 0 Output: NG Tube Drainage Amount 100 1050 Urine 850 1000 300 Other: # Bowel Movements 0 AXR: dilated SB loops with AF levels. Contrast in colon. Assessment: resolving SBO. Plan: Agree with clamping trial. Will follow.
[2017-06-10] MEDS ORDERED: Benzocaine/Menthol LOZ* 1 LOZENGE MT PRN (18:56)
[2017-06-11] MEDS: NS 0.9% 1000 ML* 1,000 ML IV SCH ×2 (05:35→16:03)
[2017-06-11 05:57] LABS: Hematocrit 25 % (42-52); Hemoglobin 7.9 g/dl (14.0-18.0); Mean Corpuscular HGB Conc 31 g/dl (31-36); Mean Corpuscular Hemoglobin 25 pg (27-31); Mean Corpuscular Volume 81 fL (80-94); Mean Platelet Volume 7 um3 (7.4-10.4); Red Cell Distribution Width 17 % (10.5-15); White Blood Count 4.3 10^3/ul (3.5-10.8)
[2017-06-11 06:09] LABS: BUN/Creatinine Ratio 8.6 (8-20); Calcium 8.4 mg/dL (8.6-10.3); EGFR Non-African American 95.6 (>60); Magnesium 2.2 mg/dL (1.9-2.7); Potassium 3.4 mmol/L (3.5-5.0)
[2017-06-11] MEDS: Pantoprazole IV* 40 MG IV SCH (09:07)
[2017-06-11] MEDS: KCL 20 MEQ/100 ML IVPREMIX* 20 MEQ/100 ML BAG IV SCH ×3 (10:33→19:59)
--- NOTE | 2017-06-11 10:48 | PN ---
Progress Note - Progress Note Date of Service: 06/11/17 SOAP: Subjective: []Better. Tolerated clear liquids and had BM this am. Pain improved, still not at baseline Acetaminophen (Tylenol Supp*) 650 mg VT Q4H PRN PRN Reason: PAIN Enoxaparin Sodium (Lovenox(*)) 40 mg SUBCUT Q24H [facility] Last Admin: 06/10/17 10:34 Dose: 40 mg Sodium Chloride (Ns 0.9% 1000 Ml*) 1,000 mls @ 100 mls/hr IV PER RATE [facility] Last Admin: 06/11/17 05:35 Dose: 100 mls/hr Ferric Sodium Gluconate Complex 125 mg/ Sodium Chloride 110 mls @ 110 mls/hr IVPB DAILY [facility] Stop: 06/14/17 09:59 Last Admin: 06/11/17 09:08 Dose: 110 mls/hr Potassium Chloride (Potassium Chloride 20 Meq/100 Ml Ivpremix*) 20 meq in 100 mls @ 50 mls/hr IV Q2H [facility] Stop: 06/11/17 14:59 Last Admin: 06/11/17 10:33 Dose: 25 mls/hr Ketorolac Tromethamine (Toradol Inj*) 15 mg IV PUSH Q6H PRN PRN Reason: PAIN Metoclopramide HCl (Reglan Iv*) 10 mg IV Q6H PRN PRN Reason: NAUSEA/VOMITING Pantoprazole Sodium (Protonix Iv*) 40 mg IV DAILY [facility] Last Admin: 06/11/17 09:07 Dose: 40 mg Throat Lozenges (Chloraseptic Kailey*) 1 kailey MT Q4H PRN PRN Reason: SORE THROAT Objective: [] Vital Signs Temp Pulse Resp BP Pulse Ox 98.0 F 63 16 108/52 94 06/11/17 07:10 06/11/17 07:10 06/11/17 07:47 06/11/17 07:10 06/11/17 07:10 HEENT - NGT, clear fluid CTA RRR S1S2 Abd - less distended, + bs. non tender Ext - no edema, warm Assessment: []67 year old with metastatic melanoma and peritoneal disease. SBO after CBD stent. Improving SBO Plan: []1. Adv to regular diet, eat light foods 2. DC NGT 3. KCL 40 meq 4. Discharge tonight if improving
--- NOTE | 2017-06-11 10:55 | PN ---
Progress Note - Progress Note Date of Service: 06/11/17 SOAP: Subjective: Feeling much better, less pain today. Tolerating clear liquids, passing flatus, had a BM this morning. Denies nausea or vomiting. NG clamped. Objective: Awake and alert, comfortable in bed, in NAD. VSS, afebrile Lungs CTA bilat. Heart RRR Abdomen soft, non-tender and mildly distended. Bowel sounds positive in all quadrants. No guarding or rigidity. Ext. without edema I/Os reviewed Labs reviewed, anemia of chronic disease Assessment: A 67 y/o male with resolving SBO, s/p CBD stent placement Plan: D/C NG tube Advance diet Ambulate as tolerated Likely home in AM
[2017-06-11] MEDS: Enoxaparin(*) 40 MG/0.4 ML SYR SUBCUT SCH (11:53)
[2017-06-12] MEDS: NS 0.9% 1000 ML* 1,000 ML IV SCH (02:12)
[2017-06-12 06:15] LABS: Hematocrit 24 % (42-52); Hemoglobin 7.6 g/dl (14.0-18.0); Mean Corpuscular HGB Conc 32 g/dl (31-36); Mean Corpuscular Hemoglobin 26 pg (27-31); Mean Corpuscular Volume 81 fL (80-94); Mean Platelet Volume 7 um3 (7.4-10.4); Red Blood Count 2.97 10^6/ul (4.0-5.4); Red Cell Distribution Width 17 % (10.5-15); White Blood Count 4.5 10^3/ul (3.5-10.8)
[2017-06-12 06:25] LABS: Albumin 2.7 g/dL (3.2-5.2); BUN/Creatinine Ratio 8.5 (8-20); Calcium 8.1 mg/dL (8.6-10.3); EGFR African American 121.3 (>60); EGFR Non-African American 94.3 (>60); Potassium 3.6 mmol/L (3.5-5.0); Total Bilirubin 0.4 mg/dL (0.2-1.0); Total Protein 5.7 g/dL (6.4-8.9)
--- NOTE | 2017-06-12 08:09 | PN ---
Progress Note - Progress Note Date of Service: 06/12/17 SOAP: Subjective: He continues to improve He is passing flatus and had a BM last night He tolerated some food last night He also still has a little abdominal pain. Objective: Temp Pulse Resp BP Pulse Ox 98.0 F 68 16 119/47 97 06/12/17 07:31 06/12/17 07:31 06/12/17 07:31 06/12/17 07:31 06/12/17 07:31 Intake & Output 06/10/17 06/11/17 06/12/17 06/13/17 06:59 06:59 06:59 06:59 Intake Total 980 3557 4727 Output Total 3000 2700 1225 Balance -2019 857 3502 Weight 215 lb Intake: IV Fluids 980 2742 1976 NS (0.9%) 980 2742 1975 IVPB 316 KCl 20 meq 316 Medicated IV 115 135 Ferric Gluconate 115 135 Oral 0 700 2300 Output: NG Tube Drainage Amount 1150 200 Urine 1850 2500 1225 Other: # Bowel Movements 0 1 Estimated Stool Amount Medium PEX: Comfortable Abd is soft and slightly distended. Bowel sounds are present and some are higher pitched. Mild generalized tenderness without guarding or rigidity. Assessment: SBO-improved and appears to be improving Metastatic malignant melanoma. Plan: Continue regular diet No surgical intervention OK for d/c from surgical standpoint.
[2017-06-12] MEDS: Pantoprazole IV* 40 MG IV SCH (11:57)
[2017-06-12] MEDS: Enoxaparin(*) 40 MG/0.4 ML SYR SUBCUT SCH (11:57)
[2017-06-12 12:11] VITALS: BP 131/63
--- NOTE | 2017-06-13 00:14 | DS ---
CC: Dr. Alex Osullivan at [facility] * DISCHARGE SUMMARY: DATE OF ADMISSION: 06/09/17 DATE OF DISCHARGE: 06/12/17 ATTENDING PHYSICIAN: Easton Weathers MD * (DICTATED BY ANGELY MACHADO NP) DISCHARGE DIAGNOSES: 1. Small bowel obstruction: Occurred status post common bile duct stent placement at [facility], resolved with medical management. 2. GI bleed: Currently pending workup with colonoscopy per [facility]. 3. Metastatic melanoma: Diagnosed in 2008, recurrent in 2012, currently on clinical trial with Endostat and pembrolizumab since February. 4. Hypertension: With GI bleed, he has had decreased BPs and now off BP medication. 5. Asthma and allergies: Stable with medications. DISCHARGE MEDICATIONS: 1. Acetaminophen 500 mg p.o. q.6 hours p.r.n. pain/headache. 2. Guaifenesin 600 mg p.o. q.a.m. p.r.n. cough. 3. Multivitamin 1 tab p.o. q.a.m. 4. Calcium carbonate/vitamin D 1 tab q.a.m. 5. Astelin 2 sprays intranasally q.a.m. 6. Singulair 10 mg p.o. q.a.m. 7. Potassium chloride 20 mEq p.o. q. evening. 8. Atorvastatin 20 mg p.o. q. evening. 9. Nasonex 50 mcg intranasally b.i.d. 10. Flovent 110 mcg inhaled b.i.d. 11. Lactobacilli 1 cap p.o. daily. 12. Susan 180 mg p.o. daily p.r.n. allergy symptoms. 13. Magnesium oxide 400 mg p.o. daily. 14. Flomax 0.4 mg p.o. q. evening. 15. Simethicone 80 mg after meal p.r.n. gas/bloating. 16. Oxycodone/acetaminophen 5/325 mg one tab p.o. q.6 hours p.r.n. pain. 17. Albuterol 110 mcg inhaled t.i.d. p.r.n. shortness of breath or wheezing. 18. STOP metoprolol. HOSPITAL COURSE: Please see admission note for full H and P; however, briefly, Mr. Rubalcava is well known to our service due to his unfortunate diagnosis of recurrent metastatic melanoma, now on clinical trial with [facility]. On , 06/07/17, the patient had successful placement of a stent in his common bile duct without obvious complications and he was discharged the following day on 06/08/17. He presented to were similar to his prior bowel obstruction and he presented to the ER. A CT scan obtained in the ER revealed dilated loops of a transition point at the right lower abdomen of the small bowel. He was admitted to the hospital for medical management. The following morning, an abdominal x-ray was obtained, which revealed some improvement of the partial small bowel obstruction. Surgical consultation was obtained on admission and the patient was followed closely by the surgical team. Over the next several days, Mr. Rubalcava continued to improve with medical management. By the day after admission, his NG tube was clamped and the following morning on 06/11/17, he had a bowel movement. Throughout his stay, Mr. Rubalcava's vital signs have been stable; however, he has had a slow, but steady decline in his H and H consistent with known GI bleed, being followed by [place]. He has had periodic blood transfusions; however, at this time, denies symptoms and would like to hold off if possible. Workup in the hospital also revealed a ferritin level of 12.3 and he was started on ferric sodium gluconate with a total of 5 doses planned. He will receive his third dose today and then come to the clinic for the last 2 doses. Plan of care was discussed at length with Mr. Rubalcava who has tolerated full diet without difficulty. He states his bloating is much improved and he continues to pass gas and he is having bowel movements daily. He will be discharged home with plan to return to the office for iron on Sunday and and then repeat CBC check on . He will follow up with Dr. Weathers in approximately 2 weeks depending on timing of workup for clinical trial. Mr. Rubalcava has requested that he call his team at [facility] in order to coordinate clinical trial treatments and further workup including possible colonoscopy. He denies need for any modifications to his medications and agrees that he has been taken off all antihypertensive medications at this time. TIME SPENT: Greater than 40 minutes spent with greater than 50% [id number] counseling. ANGELY MACHADO, [employer]PER PASTRY [id number]/[facility] #: [id number] [facility] SYSTEM[facility]ichele
== END 2017-06-12 14:45 | disposition home or self-care (01) | DRG 388 ==
LOC: ED 23:40 → SSU 06-09 10:19
PROVIDERS: ADMIT Internal Medicine Hematology & Oncology; ATTEND Internal Medicine Hematology & Oncology
PROC: 0D9670Z Drainage of Stomach with Drainage Device, Via Natural or Artificial Opening (ICD-10-PCS; principal; 2017-06-09)
DX: K56.69 Other intestinal obstruction (principal); K83.1 Obstruction of bile duct; C43.9 Malignant melanoma of skin, unspecified; C78.6 Secondary malignant neoplasm of retroperitoneum and peritoneum; I11.9 Hypertensive heart disease without heart failure; K92.2 Gastrointestinal hemorrhage, unspecified; I25.10 Atherosclerotic heart disease of native coronary artery without angina pectoris; E78.00 Pure hypercholesterolemia, unspecified; G47.33 Obstructive sleep apnea (adult) (pediatric); E66.9 Obesity, unspecified; J45.909 Unspecified asthma, uncomplicated; Z98.890 Other specified postprocedural states; Z91.09 Other allergy status, other than to drugs and biological substances; Z79.4 Long term (current) use of insulin; Z79.899 Other long term (current) drug therapy; Z88.5 Allergy status to narcotic agent; Z88.0 Allergy status to penicillin; Z88.8 Allergy status to other drugs, medicaments and biological substances; Z68.28 Body mass index [BMI] 28.0-28.9, adult
CPT/HCPCS: 36415; 74020; 74177; 80048; 80053; 81003; 82728; 83540; 83550; 83605; 83690; 83735; 84443; 84484; 85025; 85045; 85610; 85730; 86140; 87040; 99223; 99232; 99239; J1642; J1650; J2405; J2916; J3475; J3480; Q9967

== ENCOUNTER 2017-06-30 13:22 | Emergency (ER) | payer OTHER ==
[2017-06-30] MEDS ORDERED: NS 0.9% 1000 ML* 1,000 ML IV ONE (13:56)
[2017-06-30] MEDS ORDERED: LORazepam INJ* 2 MG/ML 1 ML VIAL IV ONE (13:56)
[2017-06-30 14:51] LABS: Hematocrit 25 % (42-52); Hemoglobin 8.1 g/dl (14.0-18.0); Mean Corpuscular HGB Conc 33 g/dl (31-36); Mean Corpuscular Hemoglobin 27 pg (27-31); Mean Corpuscular Volume 83 fL (80-94); Mean Platelet Volume 7 um3 (7.4-10.4); Red Blood Count 2.98 10^6/ul (4.0-5.4); Red Cell Distribution Width 20 % (10.5-15); White Blood Count 6.8 10^3/ul (3.5-10.8)
[2017-06-30 15:03] LABS: BUN/Creatinine Ratio 13.8 (8-20); C Reactive Protein 21.57 mg/L (< 5.00); Calcium 8.7 mg/dL (8.6-10.3); EGFR African American 124.8 (>60); Globulin 3.6 g/dL (2-4); Potassium 3.7 mmol/L (3.5-5.0); Total Bilirubin 0.4 mg/dL (0.2-1.0); Total Protein 6.6 g/dL (6.4-8.9)
[2017-06-30 18:33] VITALS: BP 125/73
--- NOTE | 2017-06-30 18:39 | ED ---
Salvatore Armenta Nikita, scribed for Gaurav Bauman MD on 06/30/17 at 1404 . Back Pain - HPI Summary HPI Summary: This patient is a 67 year old M BIBA to ED with a chief complaint of mid back pain since 0800 this morning. The CC is described as intermittent and radiates to the front and tightens around the rib cage. The patient rates the pain 8/10 in severity. Symptoms aggravated by lying on his side and movement. Symptoms alleviated by lying on his back and Ativan (given by Dr. Tavarez). Patient reports nausea and pallor. Patient denies bowel symptoms. PMHx of chronic back pain (for 20 years), bowel resection (tumor obstructing), melanoma metastic - on immune Tx, HTN, dyslipidemia, appendectomy, tonsillectomy, hernia Sx, knee Sx. Pt is in Stage IV Melanoma (R side). Pt is taking part of an experimental study but does not suspect any correlation between treatment and back pain. Pt is taking TRAMADOL, COMPAZINE, and TYLENOL. Pt saw Dr. Galdamez yesterday where he was low in hemoglobin. - History of Current Complaint Chief Complaint: EDBackInjuryPain Stated Complaint: BACK PAIN Time Seen by Provider: 06/30/17 13:46 Hx Obtained From: Patient Onset/Duration: Lasting Weeks - Chronic back pain, Still Present, Worse Since - 0800 Onset/Duration: Started Weeks Ago - Chronic back pain, Still Present, Worse Since - 0800 Timing: Intermittent Back Pain Location: Is Discrete @ - Mid sternal, Radiates To - front rib cage Severity Initially: Severe Severity Currently: Severe Pain Intensity: 8 Pain Scale Used: 0-10 Numeric Character: Unable to Describe - Tightening Aggravating Symptom(s): Movement - and lying on his side Alleviating Symptom(s): Position - lying on his back and Ativan (given by Dr. Tavarez) Associated Signs And Symptoms: Positive: Other - Patient reports nausea and pallor. Patient denies bowel symptoms. - Allergies/Home Medications Allergies/Adverse Reactions: Allergies Allergy/AdvReac Type Severity Reaction Status Date / Time Penicillins Allergy Mild Rash Verified 06/09/17 01:00 Atropine Allergy See Comment Verified 06/09/17 01:00 Dextromethorphan AdvReac Mild drowsy Verified 06/09/17 01:00 Hydrocodone [From Tussionex] AdvReac Mild See Comment Verified 06/09/17 01:00 Phenyltoloxamine AdvReac Mild See Comment Verified 06/09/17 01:00 [From Tussionex] PMH/Surg Hx/FS Hx/Imm Hx Endocrine/Hematology History: Reports: Hx Anemia Denies: Hx Diabetes, Hx Systemic Lupus Erythematosus Cardiovascular History: Reports: Hx Hypercholesterolemia, Hx Hypertension - no longer taking BP medications, Hx Syncope - due to low BP Denies: Hx Congestive Heart Failure, Hx Pacemaker/ICD Respiratory History: Reports: Hx Asthma, Hx Chronic Obstructive Pulmonary Disease (COPD), Hx Sleep Apnea GI History: Reports: Hx Gall Bladder Disease - bile stent d/t tumor on bile duct , Hx Obstructive Bowel, Other GI Disorders - pancreatitis after last 2 surgeries History: Reports: Hx Kidney Stones - 5 years ago Denies: Hx Dialysis, Hx Renal Disease - calculi rt side Musculoskeletal History: Reports: Hx Back Problems - chronic low back pain Denies: Hx Rheumatoid Arthritis Sensory History: Reports: Hx Contacts or Glasses Denies: Hx Hearing Aid Opthamlomology History: Reports: Hx Contacts or Glasses Neurological History: Reports: Hx Headaches - r/t neck pain Psychiatric History: Denies: Hx Panic Disorder - Cancer History Cancer Type, Location and Year: MALIGNANT melanoma top of head 2007.reoccurrance 2013-multiple spots. Hx Chemotherapy: Yes - gamma knife radiation to tumor in brain 08/2016 - Surgical History Surgery Procedure, Year, and Place: 1957-TONSILECTOMY ILL. 1962- APPY HERNIA ILL. 1984- LEFT KNEE ARTHROSCOPY [facility] [place]. 1986 4 IMP 3RD MOLARS [facility] [place] 1986 VASECTOMY OFC HERNIA REPAIR. 1994 UMBILICAL HERNIA [facility] 1996 ARTHROSCOPY [facility] [place] 2004 DEVIATED NASAL SEPTUM [facility] [place]. 2005 INGUINAL HERNIA [facility] 2007 LAP ADRI FUNDLIPICATION STRONG. 2008 MALIGNANT MELANOMA excision, 05/2011 ventral hernia repair, 11/2012 shockwave lithrtripsy kidney stone, treatment for malignant melanoma 2013, 2014 POWER PORT RIGHT CHEST WALL. 02/14/16 RESECTION SMALL INTESTINE OBSTRUCTION, had pancreatitis, 08/2016 gamma knife radiation to brain [facility], [facility], shunt in bile duct, then developed pancreatitis Hx Anesthesia Reactions: No - Immunization History Date of Tetanus Vaccine: utd Date of Influenza Vaccine: utd Infectious Disease History: No Infectious Disease History: Reports: Hx Shingles Denies: Hx Clostridium Difficile, Hx Hepatitis, Hx Human Immunodeficiency Virus (HIV), Hx of Known/Suspected MRSA, Hx Tuberculosis, Hx Known/Suspected VRE , Hx Known/Suspected VRSA, History Other Infectious Disease, Traveled Outside the [place] in Last 30 Days - Family History Known Family History: Positive: Cardiac Disease, Hypertension Negative: Diabetes - Social History Alcohol Use: Rare Hx Substance Use: No Substance Use Type: Reports: None Hx Tobacco Use: No Smoking Status (MU): Never Smoked Tobacco Have You Smoked in the Last Year: No Review of Systems Positive: Nausea, Other - NEGATIVE: bowel symptoms Positive: Other - chronic back pain, suddenly worsened since 0800, radiates to front rib cage Positive: Other - Pallor All Other Systems Reviewed And Are Negative: Yes Physical Exam Triage Information Reviewed: Yes Vital Signs On Initial Exam: Initial Vitals Temp Pulse Resp BP Pulse Ox 98.1 F 62 18 133/75 100 06/30/17 13:28 06/30/17 13:28 06/30/17 13:28 06/30/17 13:28 06/30/17 13:28 Vital Signs Reviewed: Yes Appearance: Positive: Well-Appearing, No Pain Distress Skin: Positive: Warm, Skin Color Reflects Adequate Perfusion, Dry Head/Face: Positive: Normal Head/Face Inspection Eyes: Positive: Normal ENT: Positive: Normal ENT inspection Neck: Positive: Supple, Nontender Respiratory/Lung Sounds: Positive: Clear to Auscultation, Breath Sounds Present Cardiovascular: Positive: RRR Abdomen Description: Positive: Nontender, Soft Bowel Sounds: Positive: Present Musculoskeletal: Positive: Normal Neurological: Positive: Normal, Sensory/Motor Intact, Alert, Oriented to Person Place, Time, CN Intact II-III Psychiatric: Positive: Affect/Mood Appropriate Diagnostics - Vital Signs Vital Signs Temp Pulse Resp BP Pulse Ox 06/30/17 13:28 98.1 F 62 18 133/75 100 - Laboratory Lab Results: Lab Results 06/30/17 06/30/17 Range/Units 14:30 14:30 WBC 6.8 (3.5-10.8) 10^3/ul RBC 2.98 L (4.0-5.4) 10^6/ul Hgb 8.1 L (14.0-18.0) g/dl Hct 25 L (42-52) % MCV 83 (80-94) fL MCH 27 (27-31) pg MCHC 33 (31-36) g/dl RDW 20 H (10.5-15) % Plt Count 296 (150-450) 10^3/ul MPV 7 L (7.4-10.4) um3 Neut % (Auto) 82.8 (38-83) % Lymph % (Auto) 7.1 L (25-47) % [place] % (Auto) 9.3 H (1-9) % Eos % (Auto) 0.4 (0-6) % Baso % (Auto) 0.4 (0-2) % Absolute Neuts (auto) 5.6 (1.5-7.7) 10^3/ul Absolute Lymphs (auto) 0.5 L (1.0-4.8) 10^3/ul Absolute Monos (auto) 0.6 (0-0.8) 10^3/ul Absolute Eos (auto) 0 (0-0.6) 10^3/ul Absolute Basos (auto) 0 (0-0.2) 10^3/ul Absolute Nucleated RBC 0 10^3/ul Nucleated RBC % 0 Sodium 136 (133-145) mmol/L Potassium 3.7 (3.5-5.0) mmol/L Chloride 104 (101-111) mmol/L Carbon Dioxide 27 (22-32) mmol/L Anion Gap 5 (2-11) mmol/L BUN 11 (6-24) mg/dL Creatinine 0.80 (0.67-1.17) mg/dL Est GFR ( Amer) 124.8 (>60) Est GFR (Non-Af Amer) 97.0 (>60) BUN/Creatinine Ratio 13.8 (8-20) Glucose 120 H (70-100) mg/dL Calcium 8.7 (8.6-10.3) mg/dL Total Bilirubin 0.40 (0.2-1.0) mg/dL AST 18 (13-39) U/L ALT 24 (7-52) U/L Alkaline Phosphatase 468 H (34-104) U/L C-Reactive Protein 21.57 H (< 5.00) mg/L Total Protein 6.6 (6.4-8.9) g/dL Albumin 3.0 L (3.2-5.2) g/dL Globulin 3.6 (2-4) g/dL Albumin/Globulin Ratio 0.8 L (1-3) Result Diagrams: 06/30/17 14:30 06/30/17 14:30 Lab Statement: Any lab studies that have been ordered have been reviewed, and results considered in the medical decision making process. Back Pain Course/Dx - Course Course Of Treatment: Mr. Rubalcava felt greatly improved with Ativan as muscle relazer and rehydration just as he did last week. He will F/U with Dr. Tavarez. - Diagnoses Provider Diagnoses: Back pain Discharge - Discharge Plan Condition: Stable Disposition: HOME Patient Education Materials: Back Pain (ED) Referrals: Easton Weathers MD [Medical Doctor] - 3 Days The documentation as recorded by the Salvatore katz Nikita accurately reflects the service I personally performed and the decisions made by me, Gaurav Bauman MD.
== END 2017-06-30 18:32 | disposition home or self-care (01) ==
LOC: ED 13:22
DX: R11.0 Nausea (principal); M54.9 Dorsalgia, unspecified; R23.1 Pallor
CPT/HCPCS: 36415; 80053; 85025; 86140; 96374; 99283; J1642; J2060

== ENCOUNTER 2017-07-10 13:34 | Inpatient (IN) | payer OTHER ==
[2017-07-10] MEDS ORDERED: HYDROmorphone INJ* 1 MG/ML CARPUJECT SYRINGE IV SLOW PU PRN (13:47)
[2017-07-10] MEDS ORDERED: Albuterol HFA INHALER* 8 gm MDI INH PRN (13:49)
[2017-07-10] MEDS: HYDROmorphone INJ* 1 MG/ML CARPUJECT SYRINGE IV SLOW PU PRN ×3 (14:44→21:29)
[2017-07-10] MEDS: Heparin VIAL(*) 5000 UNITS/ML VIAL (FIVE THOUSAND) SUBCUT SCH ×2 (14:50→21:28)
[2017-07-10] MEDS: NS 0.9% 1000 ML* 1,000 ML IV SCH (14:55)
[2017-07-10 16:54] LABS: Albumin 3.2 g/dL (3.2-5.2); BUN/Creatinine Ratio 19.5 (8-20); Calcium 9.6 mg/dL (8.6-10.3); EGFR African American 130.4 (>60); EGFR Non-African American 101.4 (>60); Globulin 4.1 g/dL (2-4); Potassium 3.5 mmol/L (3.5-5.0); Total Bilirubin 0.8 mg/dL (0.2-1.0); Total Protein 7.3 g/dL (6.4-8.9)
[2017-07-10] MEDS ORDERED: Iohexol 300* (CONTRAST) 10 ML SDV IV ONE (17:06)
--- NOTE | 2017-07-10 17:14 | RAD ---
HISTORY: NG tube placement COMPARISONS: February 18, 2017, June 10, 2017 VIEWS: 3: frontal portable view of the chest at 3:41 PM FINDINGS: LINES AND TUBES: A gastric tube is noted with the tip curved upon itself in the distal esophagus. A right internal jugular venous catheter is noted with the tip overlying the cavoatrial junction. CARDIOMEDIASTINAL SILHOUETTE: The cardiomediastinal silhouette is normal for portable technique. PLEURA: The costophrenic angles are sharp. No pleural abnormalities are noted. LUNG PARENCHYMA: Evaluation of the lung parenchyma is limited by technique. ABDOMEN: A biliary stent is noted. There is marked gastric distention BONES AND SOFT TISSUES: No bone or soft tissue abnormalities are noted. IMPRESSION: LINES AND TUBES ABOVE. MARKED GASTRIC DISTENTION PRELIMINARY FINDINGS WERE DISCUSSED WITH CARLOS ON 4 N. AT APPROXIMATELY 5:09 PM ON 2016.
[2017-07-10] MEDS: Ondansetron INJ* 2 MG/ML VIAL IV PRN (18:17)
--- NOTE | 2017-07-10 18:18 | RAD ---
HISTORY: The bowel obstruction, metastatic melanoma COMPARISONS: June 07, 2017 TECHNIQUE: Multiple contiguous axial CT scans were obtained of the chest, abdomen, and pelvis after the administration of intravenous contrast. Coronal and sagittal multiplanar reformations are submitted for review.. Oral contrast was not administered. Delayed images were obtained through the abdomen and pelvis. FINDINGS: CHEST NECK AND THYROID: The lower neck and thyroid are unremarkable. CHEST WALL: There is no lower cervical, axillary, or supraclavicular lymphadenopathy by size criteria. A right-sided chest port is noted HEART AND PERICARDIUM: The heart is unremarkable. AORTA AND PULMONARY VASCULATURE: The aorta and pulmonary vasculature are normal. MEDIASTINUM: There is no mediastinal lymphadenopathy by size criteria. AMINATA: There is no hilar lymphadenopathy by size criteria. AIRWAY AND ESOPHAGUS: The airway is unremarkable, without endobronchial filling defect. The esophagus is grossly normal. LUNG PARENCHYMA: Again noted is nodularity of the right lower lobe similar to the most recent previous examination PLEURA: There is trace left pleural effusion. BONES AND SOFT TISSUES: No bone or soft tissue abnormalities are noted. ABDOMEN/PELVIS: LIVER: The liver is normal in shape, size, contour, and attenuation. BILE DUCTS: There is pneumobilia. A biliary stent is noted. GALLBLADDER: The gallbladder is distended with gas. PANCREAS: Again noted is peripancreatic fluid along the tail of the pancreas. This similar to the previous examination.. Again noted is ill-defined hypoattenuation of the pancreatic head in the region of the stent. SPLEEN: Normal in size and appearance. UPPER GI TRACT: The stomach is markedly distended.. SMALL BOWEL \T\ MESENTERY: The small bowel is markedly distended. There is a loop of small bowel at the level of the jejunum containing mesenteric fat, vessels, and bowel loop within the lumen consistent with a large small bowel intussusception. The distal small bowel is decompressed. Again noted are multiple mesenteric implants that have progressed from the previous examination. COLON: The colon is normal in contour, course, caliber. There is no pericolonic inflammatory change. ADRENALS: Normal bilaterally. KIDNEYS: The kidneys are normal in shape, size, contour, and axis. There is no hydronephrosis or nephrolithiasis. BLADDER: The bladder is smooth in contour. PELVIC ORGANS: The prostate gland is normal. The seminal vesicles are symmetric. AORTA: There is calcific atherosclerotic disease of the abdominal aorta and its branches, without aneurysmal dilatation IVC: Unremarkable LYMPH NODES: There is no lymphadenopathy by size criteria. ABDOMINAL WALL: There is no evidence for abdominal wall hernia. BONES: There are mild diffuse degenerative changes. OTHER: None IMPRESSION: 1. SMALL BOWEL OBSTRUCTION WITH A LARGE SMALL BOWEL INTUSSUSCEPTION. 2. PROGRESSION OF PERITONEAL AND MESENTERIC METASTATIC DISEASE. 3. PERSISTENT RIGHT LOWER LOBE LUNG NODULES. PRELIMINARY FINDINGS WERE DISCUSSED WITH DR. CASTELAN AT APPROXIMATELY 6:14 PM ON 2016.
[2017-07-10] MEDS: Mometasone 220 MCG MDI INH SCH (20:25)
[2017-07-11] MEDS: NS 0.9% 1000 ML* 1,000 ML IV SCH (01:26)
[2017-07-11] MEDS: HYDROmorphone INJ* 1 MG/ML CARPUJECT SYRINGE IV SLOW PU PRN ×4 (03:08→10:19)
--- NOTE | 2017-07-11 03:42 | CONS ---
CC: [facility] * SURGICAL CONSULTATION: DATE OF CONSULTATION: 07/10/17 REASON FOR CONSULTATION: Small bowel obstruction. HISTORY OF PRESENT ILLNESS: This is a 67-year-old gentleman with a longstanding history of metastatic melanoma, who has been recently admitted on 06/09/17 with small bowel obstruction. He has a history of small bowel resection in January 2016 due to small bowel obstruction from metastatic melanoma. He has been known to have recurrent disease and is currently on a clinical trial at [facility]. He reports that since his last discharge from the hospital 3 weeks ago, he has not had normal bowel function, normal appetite or ability to eat due to abdominal distention and pain. He was seen at the [facility] office today with obstructive symptoms, worsening over the past day as he was admitted directly to the hospital. He underwent a CT scan of the chest, abdomen and pelvis, which revealed markedly distended small bowel from loop of jejunum possibly intussusception with decompressed distal small bowel. He has had multiple mesenteric implants, there was noted to have progression from the previous exam. The patient had a nasogastric tube placed with almost 2 L of fluid return and improvement in his pain. Based on these findings, a surgical consultation was requested. PAST MEDICAL HISTORY: Significant for metastatic melanoma, history of GI bleed (with plan to go to [facility] for upper and lower endoscopies tomorrow), hypertension, asthma, hypercholesterolemia, coronary artery disease. PAST SURGICAL HISTORY: Laparoscopic Shannan fundoplication, left inguinal hernia repair, PowerPort placement, multiple skin excisions for melanoma of abdomen, chest, and scalp, appendectomy, small bowel resection, and abdominal wall hernia repair with mesh. MEDICATIONS: 1. Tramadol. 2. Tamsulosin. 3. Simethicone. 4. Potassium. 5. Multivitamin. 6. Singulair. 7. Nasonex. 8. Magnesium oxide. 9. Mucinex. 10. Flovent. 11. Susan. 12. Calcium. 13. Astelin. 14. Albuterol. 15. Acetaminophen. ALLERGIES: PENICILLIN, ATROPINE, DEXTROMETHORPHAN, HYDROCODONE and PHENYLTOLOXAMINE. SOCIAL HISTORY: He is . 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 No tobacco or no alcohol use. FAMILY HISTORY: Noncontributory. PHYSICAL EXAMINATION: Vital Signs: Temperature is 97.4, pulse is 99. His respirations are 17 and blood pressure is 156/101. In general, he is in no acute distress. HEENT: Nasogastric tube is intact and anicteric sclerae. Abdomen is distended with multiple scars, soft. There is a firm mass in the umbilical region. It is soft and mildly tender with no rebound or guarding. Extremities are warm. LABORATORY DATA: The patient's CBC from 07/09/17 shows WBC of 11, hemoglobin 7.9, hematocrit of 25, platelet count of 299. His chemistries showed sodium of 133, potassium 3.5, platelet 98, carbon dioxide 27, BUN 15, creatinine 0.77, glucose of 209. CT scan repeated findings as above. IMPRESSION: This 67-year-old gentleman with metastatic melanoma, recurrent small bowel obstruction with findings of possible intussusception likely metastasis as etiology. He will require laparotomy to address this. PLANS AND RECOMMENDATIONS: I have discussed the plans with the patient, his and son who are at bedside. We discussed that surgery would be planned for 07/11/[address] Andrade. The patient was explained of the nature of the surgery would be dictated by the findings at the time of the exploration and would likely include bowel resection, but may include additional procedures as indicated. The patient had an opportunity to ask questions. All questions were answered. He is in agreement with the plan to proceed with surgery. [id number]/[facility] #: [id number] MTDD
[2017-07-11] MEDS: Heparin VIAL(*) 5000 UNITS/ML VIAL (FIVE THOUSAND) SUBCUT SCH ×3 (04:56→23:00)
[2017-07-11 06:03] LABS: Hematocrit 29 % (42-52); Hemoglobin 9.6 g/dl (14.0-18.0); Mean Corpuscular HGB Conc 33 g/dl (31-36); Mean Corpuscular Hemoglobin 27 pg (27-31); Mean Corpuscular Volume 84 fL (80-94); Mean Platelet Volume 7 um3 (7.4-10.4); Red Blood Count 3.51 10^6/ul (4.0-5.4); Red Cell Distribution Width 21 % (10.5-15); White Blood Count 12.9 10^3/ul (3.5-10.8)
[2017-07-11 06:18] LABS: Albumin 2.8 g/dL (3.2-5.2); BUN/Creatinine Ratio 15.8 (8-20); Calcium 9.2 mg/dL (8.6-10.3); EGFR African American 132.4 (>60); EGFR Non-African American 102.9 (>60); Globulin 3.4 g/dL (2-4); Potassium 3.9 mmol/L (3.5-5.0); Total Bilirubin 0.6 mg/dL (0.2-1.0); Total Protein 6.2 g/dL (6.4-8.9)
[2017-07-11] MEDS: AZELASTINE HCL NASAL SCH (08:17)
[2017-07-11 11:48] LABS: Hematocrit 29 % (42-52); Hemoglobin 9.4 g/dl (14.0-18.0); Mean Corpuscular HGB Conc 32 g/dl (31-36); Mean Corpuscular Hemoglobin 27 pg (27-31); Mean Corpuscular Volume 84 fL (80-94); Mean Platelet Volume 7 um3 (7.4-10.4); Red Blood Count 3.46 10^6/ul (4.0-5.4); Red Cell Distribution Width 21 % (10.5-15); White Blood Count 11.2 10^3/ul (3.5-10.8)
[2017-07-11] MEDS ORDERED: ceFOXitin 2 GM IVPREMIX* 2 GM/50 ML BAG ONE (11:59)
--- NOTE | 2017-07-11 12:23 | PN ---
Progress Note - Progress Note Date of Service: 07/11/17 SOAP: Subjective: pt seen and examined. Chart and images reviewed. Case d/w Dr Mora and agree with dx=SBO possibly 2ary to malignant lesion. Objective: af tachy, normotensive abdo; soft/ mild distension, tender at Left, palp mass at umbilicus Ct: sbo, and other findings Assessment: SBO Plan: Exploratory laparotomy, possible bowel resection Palliative surgery pre op Abx Tobias to gravity R/B/A discussed and pt wishes to proceed. Possible complications reviewed and pt understands.
[2017-07-11] MEDS ORDERED: Cisatracurium* 2 MG/ML MDV 5 ML ONE ×2 (13:32→14:29)
[2017-07-11] MEDS ORDERED: fentaNYL* 50 MCG/ML 2 ML VIAL (100 MCG VIAL) ONE ×2 (13:32→15:52)
[2017-07-11] MEDS ORDERED: Propofol* 10 MG/ML 20 ML BTL IV PUSH ONE (13:32)
[2017-07-11] MEDS ORDERED: Lidocaine 2% PF * 5 ML VIAL ONE (13:32)
[2017-07-11 15:09] LABS: Hematocrit 31 % (42-52); Hemoglobin 9.6 g/dl (14.0-18.0)
[2017-07-11] MEDS ORDERED: Neostigmine Methylsulfate* 2 MG/2 ML SYRINGE ONE (16:05)
--- NOTE | 2017-07-11 16:35 | PN ---
Progress Note - Progress Note Date of Service: 07/11/17 Note: Brief Operative note: Preop Dx: SBO secondary to intussusception Postop Dx: same; above secondary to tumor implant Procedure: exploratory laparotomy; small bowel resection Anesthesia: ASHELY Surgeon: Lupe EBL: 100 - 150 ml fluids: 3000 ml crystalloid drains: none specimen: portion omentum x 2; portion small bowel x 2 findings: dictated
[2017-07-11] MEDS ORDERED: fentaNYL* 50 MCG/ML 5 ML VIAL (250 MCG VIAL) ONE (16:51)
[2017-07-11] MEDS: fentaNYL* 50 MCG/ML 2 ML VIAL (100 MCG VIAL) IV PRN ×3 (16:53→17:44)
[2017-07-11] MEDS ORDERED: HYDROmorphone PCA* 20 MG/20 ML PCA.SYRING PCA SCH (17:00)
[2017-07-11] MEDS ORDERED: HYDROmorphone PCA* 20 MG/20 ML PCA.SYRING ONE (18:02)
[2017-07-11] MEDS ORDERED: NS 0.9% 1000 ML* 1,000 ML IV ONE (19:52)
[2017-07-11] MEDS ORDERED: NS 0.9% 1000 ML* 1,000 ML IV SCH (19:58)
[2017-07-11] MEDS ORDERED: ceFOXitin 2 GM IVPREMIX* 2 GM/50 ML BAG IVPB SCH ×2 (20:00→23:15)
[2017-07-11] MEDS: Mometasone 220 MCG MDI INH SCH (20:55)
[2017-07-11] MEDS ORDERED: Alteplase (CATHFLO)* 2 MG VIAL IV ONE (21:14)
--- NOTE | 2017-07-11 21:20 | RAD ---
INDICATION: Fever and a postsurgical patient COMPARISON: Most recent comparison chest x-rays dated July 10, [address] chest abdomen and pelvis from the same date TECHNIQUE: Single AP portable view of the chest was obtained. FINDINGS: Image quality is compromised due to the relative inferiority of a portable chest x-ray. A gastric tube is seen overlying the midline mediastinum and terminating below the level the diaphragm at the expected location of the gastric antrum. A right internal jugular vein Mediport is seen with the tip at the cavoatrial junction. The heart and mediastinum are normal in size and contour. At the right lung base there is a 2.8 cm mass corresponding to multifocal nodularity seen on the recent CT examination. IMPRESSION: No radiographic evidence of acute cardiopulmonary [place]. A 2.8 cm nodule at the right lung base corresponds to the multinodular focus seen on the previous day's CT the chest.
[2017-07-11] MEDS: Ciprofloxacin 400MG IVPREMIX(* 400 MG/200 ML BAG IVPB SCH (21:57)
[2017-07-11 22:04] LABS: Hematocrit 30 % (42-52); Hemoglobin 9.7 g/dl (14.0-18.0); Mean Corpuscular HGB Conc 33 g/dl (31-36); Mean Corpuscular Hemoglobin 27 pg (27-31); Mean Corpuscular Volume 84 fL (80-94); Mean Platelet Volume 7 um3 (7.4-10.4); Red Blood Count 3.54 10^6/ul (4.0-5.4); Red Cell Distribution Width 20 % (10.5-15); White Blood Count 8.4 10^3/ul (3.5-10.8)
[2017-07-11 22:37] LABS: Urine Bilirubin Negative (Negative); Urine Nitrite Negative (Negative)
[2017-07-11 22:38] LABS: Urine Glucose Negative (Negative)
[2017-07-11 22:39] LABS: Urine Bacteria Absent (Absent)
[2017-07-11] MEDS: Acetaminophen SUPP* 650 MG SUPP PR PRN (22:43)
[2017-07-11] MEDS: metroNIDAZOLE IV 500 MG/100ML* 500 MG/100 ML BAG IVPB SCH ×2 (23:00→23:34)
[2017-07-11] MEDS: ceFOXitin 2 GM IVPREMIX* 2 GM/50 ML BAG IVPB SCH (23:24)
--- NOTE | 2017-07-12 03:22 | CONS ---
CC: Dr. Archibald; Dr. Weathers; Dr. Ascencio; Dr. Andrade * CONSULTATION REPORT: DATE OF ADMISSION: 07/10/17 DATE OF CONSULT: 07/11/17 PRIMARY CARE PROVIDER: Dr. Archibald. PRIMARY ONCOLOGIST: Dr. Weathers. REQUESTING PHYSICIAN FOR CONSULT: Dr. Ascencio. PRIMARY SURGEON: Dr. Andrade. ATTENDING PHYSICIAN WHILE IN THE HOSPITAL: Giuliana Hooper MD (report dictated by Aaron Mcclain NP) REASON FOR MEDICAL CONSULTATION: Evaluation of postoperative tachycardia. HISTORY OF PRESENT ILLNESS: Mr. Rubalcava is a 67-year-old male patient. He has a history of metastatic melanoma to his abdomen. He has had recurrent, this is the second, small bowel obstruction secondary to melanoma. He had an exploratory laparotomy a year ago with a resection. He underwent resection again today. He has recent GI bleed. He has a history of hypertension and hyperlipidemia, but since losing weight due to the cancer, he is off his medications for those medical problems. He presented to the [facility] office on with complaints of nausea, vomiting, worsening abdominal pain and was admitted directly to the hospital. He underwent CT chest, abdomen, and pelvis, which revealed markedly distended small bowel from the loop of the jejunum, possibly intussusception, and decompressed distal small bowel. NG tube was placed with 2 L of fluid out. He was followed by Surgery. It was felt that he would benefit from an exploratory laparotomy, which he underwent today. The patient postoperatively was noted to be tachycardic. He was evaluated. He says he has pain near the central line of his abdomen. No back pain other than his chronic pain. He denies having any shortness of breath or any chest pain. He says he does not feel lightheaded or like he is going to faint or pass out. He states, otherwise, he is feeling well. He denies feeling nauseated and he is not vomiting, but because of his tachycardia, we were asked to evaluate in consult. PAST MEDICAL HISTORY: Significant for: 1. Melanoma. 2. History of GI bleed. 3. Hypertension, again now no longer on medications. 4. Asthma. 5. History of seasonal allergies. 6. Hyperlipidemia. PAST SURGICAL HISTORY: 1. He has had bowel resections now twice. 2. He also has had a hernia repair, Shannan fundoplication. 3. He has had biliary stent placement, with removal and then replacement. 4. He has had tonsillectomy and appendectomy. HOME MEDICATIONS: His home meds according to the list that was provided includes: 1. Tramadol 50 mg every 6 hours as needed. 2. Flomax 0.4 mg p.o. daily. 3. Gas-X 80 mg p.o. after meals as needed. 4. Potassium 20 mEq p.o. daily. 5. Multivitamin 1 tablet p.o. daily. 6. Singulair 10 mg daily. 7. Nasonex 50 mcg nasally b.i.d. 8. Magnesium oxide 40 mg p.o. daily. 9. Mucinex 600 mg p.o. q.a.m. 10. Flovent 110 mcg inhaled b.i.d. 11. Fexofenadine 180 mg p.o. daily as needed. 12. Calcium carbonate 1 tablet p.o. daily. 13. Astelin 2 sprays nasally q.a.m. 14. Albuterol 110 mcg inhaled t.i.d. as needed. 15. Tylenol 1000 mg p.o. daily as needed. ALLERGIES: He is allergic to PENICILLIN, ATROPINE, DEXTROMETHORPHAN, HYDROCODONE, and TUSSIN. FAMILY HISTORY: Mother had a history of CT. Father had a history of perforated bowel. SOCIAL HISTORY: He does not smoke. He does not drink. Surrogate decision maker is his , Jodie. REVIEW OF SYSTEMS: There is a documented fever here of 38.4 Celsius. He denies having any chills with the exception when he came out of the OR, he was having chills. He denies having any lightheadedness. No rhinorrhea. No sore throat. No chest pain. No orthopnea. No nocturnal dyspnea. There is abdominal pain. He denies nausea or vomiting. He denied having any urinary symptoms. He denies any loss of consciousness or any seizure activities. Review of 14 systems completed, all others negative. PHYSICAL EXAMINATION: Vital Signs: Blood pressure 115/79, pulse 132, respirations 14, O2 sat 99%, and temperature was 38.4. General: At this time, Mr. Rubalcava is a 67-year-old male patient. He is sitting in the PACU bed. He does not appear to be in any acute distress. HEENT : Head atraumatic. Eyes: Sclerae anicteric. Neck is supple. Throat: Oral mucosa appears to be dry. No oropharyngeal erythema. Heart: Sounds S1, S2. He is tachycardic. Lungs: Clear to auscultation. Abdomen: Soft. Bowel sounds hypoactive. Tenderness elicited along the incision. Extremities: Pulses 2+ throughout. No peripheral edema, 5/5 strength. Neurologic: He is awake, alert, oriented x3. Tongue midline. Copy Messenger were equal. No gross focal deficits. Skin: Intact with the exception he has a midline abdominal incision. LABORATORY DATA: From today, WBC 11.2, RBC 3.46, hemoglobin 9.4, hematocrit 29 , and platelet count of 349. His repeat H and H at 3 o'clock was 9.6 and 31. INR 1.01, PTT 29.1. Sodium 134, potassium 2.9, chloride 100, bicarb 30, BUN 12 , creatinine 0.76, glucose 148, total bili 0.6, AST 20, ALT 99, alk phos 685, albumin of 2.8. DIAGNOSTIC STUDIES: He had a chest, abdomen, and pelvis CT done on admission, which revealed impression, small bowel obstruction with a large small bowel intussusception, progression of peritoneal and mesenteric metastatic disease, persistent right lower lung lobe nodules. Chest x-ray showed lines and tubes as above, marked gastric distention. EKG postop today showed a sinus tachycardia, rate of 128. He had ST depression in the anterior leads, but no ST elevations or T wave inversions were noted. Old medical records were reviewed. ASSESSMENT AND PLAN: Mr. Rubalcava is a 67-year-old male patient with a complex medical history coming to again surgical services today for exploratory laparotomy, status post small bowel resection. We were asked to evaluate in consult. Recommendations at this point: 1. Status post exploratory laparotomy with small bowel resection. I will defer the management of this to Dr. Andrade and his team. 2. Tachycardia with postop fever. I suspect that is what is driving the tachycardia. I am going to go ahead and give him OK Tylenol. I will go ahead and give him 2 L of fluid in addition to this. We will repeat the CBC. We will panculture him. I am going to put him on Cipro and Flagyl empirically. Further recommendations per Dr. Bollo. I will continue his cephalosporin per the SCIP protocol, and we will continue to follow. 3. Melanoma. Will continue to follow with Dr. Weathers. 4. History of GI bleed. No active bleed. At this point, we will monitor. 5. History of hypertension. Again, not an active issue. He currently not on meds. 6. Hyperlipidemia. Again, currently not an active issue. No longer on meds. 7. History of allergies and asthma. Continue meds as prescribed. 8. DVT prophylaxis. I am going to defer that to the primary team. 9. Code status. He is a full code. 10. Fluid, electrolytes, and nutrition. I am going to defer to the primary team. TIME SPENT: Time spent on the consult was approximately 60 minutes, greater than half that time was spent [id number] with the patient obtaining my history and physical, the other half time was spent going over the plan of care with the patient and implementing the plan of care. I discussed the plan of care with my attending, Dr. Hooper, she is in agreement. AARON MCCLAIN, SARA [id number]/[facility] #: [id number] EUGENIO
[2017-07-12] MEDS: NS 0.9% 1000 ML* 1,000 ML IV SCH ×2 (05:15→15:25)
[2017-07-12 06:11] LABS: Hematocrit 31 % (42-52); Hemoglobin 9.9 g/dl (14.0-18.0); Mean Corpuscular HGB Conc 32 g/dl (31-36); Mean Corpuscular Hemoglobin 27 pg (27-31); Mean Corpuscular Volume 86 fL (80-94); Red Blood Count 3.61 10^6/ul (4.0-5.4); Red Cell Distribution Width 21 % (10.5-15)
[2017-07-12 06:14] LABS: Comments Flag Yes
[2017-07-12 06:15] LABS: Add Diff/Slide Review? Slide Review Added
[2017-07-12] MEDS: Heparin VIAL(*) 5000 UNITS/ML VIAL (FIVE THOUSAND) SUBCUT SCH ×3 (06:16→22:24)
[2017-07-12] MEDS: metroNIDAZOLE IV 500 MG/100ML* 500 MG/100 ML BAG IVPB SCH ×2 (06:27→15:06)
[2017-07-12 07:22] LABS: White Blood Count 8.6 10^3/ul (3.5-10.8)
[2017-07-12] MEDS: ceFOXitin 2 GM IVPREMIX* 2 GM/50 ML BAG IVPB SCH (08:23)
[2017-07-12] MEDS ORDERED: Alteplase (CATHFLO)* 2 MG VIAL IV ONE (09:06)
--- NOTE | 2017-07-12 10:01 | PN ---
Progress Note - Progress Note Date of Service: 07/12/17 SOAP: Subjective: Pt seen and examined. c/o abdo pain, no flatus Objective: Temp Pulse Resp BP Pulse Ox 99.1 F 79 8 113/71 98 07/12/17 07:59 07/12/17 06:01 07/12/17 06:01 07/12/17 06:00 07/12/17 06:01 uo fair, received bolus overnight NGT 515cc last shift lungs clear abdo: soft/ mild distension hypoactive bs dressing intact no calf tenderness cbc noted Assessment: POD1 ex lap, sb resection x2 Plan: transfer to floor d/c miller labs in am, bmp today tpn cont NGT abx
[2017-07-12] MEDS: Ciprofloxacin 400MG IVPREMIX(* 400 MG/200 ML BAG IVPB SCH ×2 (11:28→22:20)
[2017-07-12 12:02] LABS: Albumin 1.7 g/dL (3.2-5.2); Calcium 6.6 mg/dL (8.6-10.3); EGFR African American 173.9 (>60); EGFR Non-African American 135.2 (>60); Globulin 2.5 g/dL (2-4); Potassium 3.1 mmol/L (3.5-5.0); Total Bilirubin 0.4 mg/dL (0.2-1.0); Total Protein 4.2 g/dL (6.4-8.9)
[2017-07-12] MEDS: AZELASTINE HCL NASAL SCH (12:23)
--- NOTE | 2017-07-12 15:59 | OP ---
CC: Dr. Easton Weathers; Dr. Tiburcio Archibald * DATE OF OPERATION: 07/11/17 - ROOM #334 DATE OF : 54 SURGEON: Miguel Andrade MD CUTTER OPERATOR BRICK: DANILO Eugene ANESTHESIOLOGIST: Sunday Ascencio DO PRE-OP DIAGNOSIS: Small bowel obstruction and intussusception. POST-OP DIAGNOSIS: Small bowel obstruction secondary to intussusception, secondary to metastatic lesion. OPERATIVE PROCEDURE: Exploratory laparotomy, reduction of intussusception and resection of small bowel. SPECIMENS: 1. Portion of small bowel proximally. 2. Portion of small bowel distally. 3. Omental lesions x2. ESTIMATED BLOOD LOSS: Less than 100 cc. FLUIDS: Crystalloid fluid given. DRAINS: None. COUNT: Lap, pad count and instrument count correct at the end of the procedure. Tobias catheter inserted. At the time of procedure, the patient remained with NG tube, was extubated and transferred to PACU in stable condition for planned admission to the ICU. INDICATIONS: The patient was identified in the preoperative area. The case was discussed with my partner and I discussed this with him and his family members going over the risks, benefits and alternatives to surgery. Given the patient's profound small bowel obstruction and finding of CT scan, the recommendation was for exploratory laparotomy with possible bowel resection. I went over the risks, benefits and alternatives. The patient agreed that we did not recommend a watchful waiting at this time, as my concern was patient had significant intussusception that would not reduce on its own. We spoke about the possible complications, which include not limited to bleeding, infection, leak infection, hernia formation, need for additional procedures, prolonged hospitalization, myocardial infarction, wound infection, CVA and even . The patient signed consent. He was marked and taken to the operating room, and placed on the operating table in a supine position. Preoperative antibiotics were given. Sequential devices were placed on bilateral lower extremities. General anesthesia was induced. Tobias catheter was inserted and the patient's abdomen was prepped and draped in a standard surgical fashion. A time-out was performed. A palpable mass at the umbilicus was identified, just inferior to this another one. We decided to make an incision to the previous midline incision. This was extended towards the umbilicus on the right side and then down to midline inferiorly. This is deepened down through all structures of the abdominal wall with scalpel until we entered the abdominal cavity. Omentum was bluntly and sharply dissected off the anterior abdominal wall incision site and we were able to enter into the abdomen with ease. There was a minimal amount of free fluid. We painstakingly continued our dissection inferiorly along the midline incision, freeing up omentum as we could, this extended into soft lesions that were consistent with malignancy, these were resected and hemostasis achieved with 2-0 Polysorb sutures. This allowed the omentum to finally be retracted up and over and identified the transverse colon. Once we were able to do this, we could reflect the omentum most superiorly. The small bowel was then identified and there was a thickened lead pipe style small bowel, we extended our incision superiorly to allow to remove this significantly dilated and edematous small bowel that appeared to be the issue. Prior to removing this, however, we went to the distal collapsed small bowel and ran this. This extended towards the lesion on the anterior abdominal wall just to the lower midline. This turned out to be likely small bowel lesion adhered to the side, although it could have been primarily an abdominal wall lesion that adhered to the small bowel. Either way, we let this be as this was not appeared to be obstructing. We saw a small area of intussusception at the distal bowel, but this was not our main issue. We came back to look at this later and ended up resecting this portion, but we turned our now attention to the proximal bowel where we had the portion that was difficult to remove through the midline incision. We did this slowly and was allowed to mobilize the small bowel up and outside of the abdomen. Once this was performed, we could see that this was a large intussusception with an approximate 18-inch intussusceptum. The proximal bowel to the ligament of Treitz amounted to about 10 inches of small bowel that was intact. Now, I had the opportunity to reduce the intussusception. We slowly tried to milk the bowel proximally, but with the multiple turns along the small bowel with this long segment of intussuscepted bowel would not reduce. We did form a rent in the small bowel and it was at this rent that we had decided to open the small bowel of the intussuscipiens. This allowed us to pull the intussusceptum part through this and made for an easier way to reduce this. It did still require significant pulling on the proximal portion to what turned out to be reduce a large melanotic lesion. Once this was all opened up and reduced, we were able to identify the bowel. A large portion of the small bowel that namely was the intussusceptum certainly required removal and the intussuscipiens also did given that we had to open it up to fully reduce this safely. I felt there was enough small bowel to do this safely and we ended up choosing points proximally and distally firing a 80 GINETTE stapler across these sites and taking the mesentery close to the small bowel arcade with the LigaSure device. The vessels were robust to this site and they were safely taken with the LigaSure device and we placed the 2 portions of small bowel in apposition to one and another and created anastomosis with the 80 mm GINETTE stapling device through 2 enterotomies on the anti-mesenteric border and reapproximated the defect with TA-90 stapler. The corners were dunked on the staple line with 3-0 silk sutures. The crotch of the staple line was also reapproximated and next the mesentry was reapproximated with interrupted 2-0 Polysorb sutures in figure-of- eight fashion. Bowel seemed to be viable, it was edematous, but intact and it was dropped back into the abdomen. We did have some drainage at our enterotomy site for the portion of the reduction, but this was mostly edema fluid and did not suggest any significant soiling, Next, we ran the bowel and found the original portion of distal small bowel that had intussuscepted and we decided with our being able to reduce this very small segment that appeared to be near obstructing that we would resect this as well. I tried to milk air from proximal to distal on this portion of the ileum with great difficulty and made the decision to do another resection with primary anastomosis. This is performed in a similar fashion using 80 mm GINETTE stapling device, firing across through healthy small bowel and again creating anastomosis with 80 mm GINETTE stapler and closing it with a 90 mm TA stapler blue load and mesenteric defect was similarly closed. The skin edges appeared intact with good blood flow. Hemostasis was excellent. Next, we copiously irrigated the abdomen with approximately 7 L of warm saline and suctioned this off. It should be noted that additional lesions were noted along other portions of the small bowel and small bowel mesentery as well as the omentum and the anterior abdominal wall. These were left alone. Next, the midline incision was readdressed. There was a portion of mesh that we cut through to enter the abdomen. The edges of this mesh were debrided with scissors and next we closed the abdomen with interrupted #1 Polysorb sutures in a [id number] fashion starting inferiorly and then advancing to superiorly. The wound was then irrigated and reapproximated with skin luc followed by sterile dressing. Patient tolerated the procedure well, was woken up and transferred to the PACU in stable condition. [id number]/[facility] #: [id number] EUGENIO
[2017-07-12] MEDS ORDERED: Dextrose 50% Syringe 50 ML* 25 GM/50 ML SYRINGE IV PUSH PRN (16:06)
[2017-07-12] MEDS ORDERED: TPN* 24 HR with Dextrose 50% Water* 500 ML, Amino Acid Infusion 10%* 850 ML, Sterile Wa... CENTR SCH ×12 (17:00)
[2017-07-12] MEDS: Insulin LISPRO* 1 UNITS UNIT SUBCUT SCH (19:00)
[2017-07-12] MEDS: Mometasone 220 MCG MDI INH SCH (19:00)
[2017-07-13] MEDS: metroNIDAZOLE IV 500 MG/100ML* 500 MG/100 ML BAG IVPB SCH ×4 (00:34→23:18)
[2017-07-13] MEDS: Insulin LISPRO* 1 UNITS UNIT SUBCUT SCH ×5 (00:58→23:48)
[2017-07-13 06:22] LABS: Hematocrit 21 % (42-52); Hemoglobin 6.8 g/dl (14.0-18.0); Mean Corpuscular HGB Conc 32 g/dl (31-36); Mean Corpuscular Hemoglobin 27 pg (27-31); Mean Corpuscular Volume 85 fL (80-94); Mean Platelet Volume 7 um3 (7.4-10.4); Red Blood Count 2.51 10^6/ul (4.0-5.4); Red Cell Distribution Width 20 % (10.5-15)
[2017-07-13 06:23] LABS: Comments Flag Yes
[2017-07-13 06:24] LABS: Add Diff/Slide Review? Slide Review Added
[2017-07-13] MEDS: Heparin VIAL(*) 5000 UNITS/ML VIAL (FIVE THOUSAND) SUBCUT SCH ×3 (06:25→21:58)
[2017-07-13 06:37] LABS: BUN/Creatinine Ratio 21.5 (8-20); EGFR African American 158.6 (>60); EGFR Non-African American 123.3 (>60); Globulin 2.7 g/dL (2-4); Phosphorus 1.3 mg/dL (2.5-5.0); Potassium 3.6 mmol/L (3.5-5.0); Total Bilirubin 0.3 mg/dL (0.2-1.0); Total Protein 4.7 g/dL (6.4-8.9)
[2017-07-13 09:20] LABS: Hematocrit 22 % (42-52); Mean Corpuscular HGB Conc 32 g/dl (31-36); Mean Corpuscular Hemoglobin 28 pg (27-31); Mean Corpuscular Volume 85 fL (80-94); Mean Platelet Volume 7 um3 (7.4-10.4); Red Blood Count 2.55 10^6/ul (4.0-5.4); Red Cell Distribution Width 20 % (10.5-15); White Blood Count 6.6 10^3/ul (3.5-10.8)
--- NOTE | 2017-07-13 10:15 | SURGPN ---
Subjective - Introduction -: Patient seen and examined. Reports occasional mild abdominal pain. Denies nausea , fever or chills. Ambulatory yesterday. No flatus yet. Denies chest pain or SOB. - Medications -: Active Medications Generic Name Dose Route Start Last Admin Trade Name Freq PRN Reason Stop Dose Admin Acetaminophen 650 mg 07/11/17 19:50 07/11/17 22:43 Tylenol Supp* PA 650 mg Q4H PRN Administration FEVER/PAIN Albuterol 1 puff 07/10/17 13:49 Ventolin Hfa Inhaler* INH TID PRN SOB/WHEEZING Dextrose 12.5 gm 07/12/17 16:06 D50w Syringe 50 Ml* IV PUSH .FOR FS < 60 - SS PRN FS < 60 Heparin Sodium (Porcine) 5,000 units 07/10/17 14:00 07/13/17 06:25 Heparin Vial(*) SUBCUT 5,000 units Q8HR MALLORIE Administration Sodium Chloride 1,000 mls @ 0 mls/hr 07/10/17 14:00 07/12/17 15:25 Ns 0.9% 1000 Ml* IV 100 mls/hr PER RATE MALLORIE Administration KVO Hydromorphone HCl 20 mg in 20 mls @ 0 mls/hr 07/11/17 17:00 Dilaudid Personal Trainer* QUALITY CONTROL COORDINATOR .change Q24H MALLORIE Protocol Per Protocol Ciprofloxacin/Dextrose 400 mg in 200 mls @ 200 mls/hr 07/11/17 21:45 22:20 Cipro 400 Mg Ivpremix(*) IVPB 200 mls/hr Q12H MALLORIE Administration Metronidazole/Sodium Chloride 500 mg in 100 mls @ 100 mls/hr 07/11/17 22:45 07/13/17 07:30 Flagyl 500 Mg Ivpb* IVPB 100 mls/hr Q8H MALLORIE Administration Dextrose 500 ml/ Amino Acids 1,837.3847 mls @ 76.558 mls/hr 07/13/17 17:00 850 ml/ Sterile Water 150 ml/ CENTR 07/13/17 17:01 Fat Emulsion Intravenous 250 1700 MALLORIE ml/ Sodium Chloride 75 meq/ Potassium Chloride 50 meq/ Potassium Phosphate 20 mmole/ Calcium Gluconate 10 meq/ Magnesium Sulfate 10 meq/ Multivitamins 10 ml/ Trace Metals 3 ml/ Nutrition ( Parenteral) Insulin Human Lispro 0 units 07/12/17 18:00 07/13/17 06:24 Humalog* SUBCUT 2 units Q6HR MALLORIE Administration Protocol Mometasone Furoate 1 puff 07/10/17 18:00 07/12/17 19:00 Asmanex 220 Mcg Mdi * INH 1 puff QPM MALLORIE Administration Ondansetron HCl 4 mg 07/10/17 18:01 07/10/17 18:17 Zofran Inj* IV 4 mg Q6H PRN Administration NAUSEA Objective - Objective -: Awake and alert, comfortable in bed, and in NAD. - Intake and Output -: Intake & Output 07/11/17 07/12/17 07/13/17 07/14/17 06:59 06:59 06:59 06:59 Intake Total 1607 600.6 1954 Output Total 2900 1115 1770 Balance -1293 -514.4 184 Weight 197 lb 202 lb 13.204 oz 197 lb 11.2 oz Intake: IV Fluids 1407 600.6 1844 ABX 306 394 ABX - CIPROFLOXACIN 46 NS (0.9%) 1407 198.6 1450 NS 100ML, Cefoxitin 2G 50 IVPB 110 ABX - CIPROFLOXACIN 110 Oral 200 0 0 Output: NG Tube Drainage Amount 2700 515 770 Urine 200 425 600 Tobias 175 400 Other: Estimated Void Medium Medium Date of Last Bowel 0 Movement # Bowel Movements 0 0 # Voids 1 1 Surgical Physical Exam - Comments -: VSS, afebrile, not tachy Lungs CTA bilat. Heart RRR, no murmurs Abdomen soft, moderately distended. Mild LLQ tenderness, without guarding or rigidity. Dressing clean and dry. Bowel sounds hypoactive. Ext. without edema Labs noted, H/H dropped to 6.8/19 this AM Assessment and Plan - Assessment -: A 67 y/o male, POD#2, s/p exploratory laparotomy with small bowel resection secondary to intussuception. Anemia of blood loss Hx metastatic melanoma - Plan Additional Comments: Discussed case with Kaur Estevez NP, who will repeat CBC this AM, likely transfuse with PRBCs if necessary. He appears to be hemodynamically stable at this point. TPN and NG tube, awaiting bowel function. Discussed with Dr. Andrade as well, no acute surgical intervention is indicated, but will observe closely for any worsening symptoms.
[2017-07-13] MEDS: Ciprofloxacin 400MG IVPREMIX(* 400 MG/200 ML BAG IVPB SCH ×2 (10:44→21:58)
--- NOTE | 2017-07-13 10:49 | RAD ---
Indication: Left lower quadrant pain. CT of the abdomen and pelvis was performed without oral or IV contrast administration. Coronal and sagittal reconstructed images were obtained. Comparison is made with previous exam July 10, 2017 Lung bases demonstrate bibasilar atelectasis. There is suggestion of bronchiectasis in the right lower lobe with filling of the dilated bronchioles. Overall this is unchanged from July 09, 2017. Small left pleural effusion is noted. Heart demonstrates no pericardial effusion. Liver is normal in size. No focal lesions are identified. Small focus of free air is noted adjacent to the liver likely postoperative in nature. The spleen is normal in size. Nasogastric tube is in place. The gallbladder is filled with air. A biliary stent is in place. The pancreas demonstrates no mass or pancreatic duct dilatation. No adrenal lesions are noted. No hydronephrosis is noted. No retroperitoneal lymphadenopathy is noted. Aorta and inferior vena cava are unremarkable. Small bowel demonstrates no evidence of abnormal dilatation. Again noted is a nodular mesentery consistent with metastatic disease. Small foci of free air is noted. There is a mass in the right lower quadrant just adjacent to the anterior abdominal wall consistent with mesenteric metastasis measures up to 5 cm. Small amount of free fluid is noted in the pelvis. No hernias are identified. IMPRESSION: Postoperative changes are noted. Air is noted in the gallbladder which is unchanged from previous exam. Previously identified small bowel is unchanged from previous exam. 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 Dirty mesentery may represent mesenteric implants. Tiny foci of free air is likely postoperative in nature.
[2017-07-13] MEDS: TPN* 24 HR with Dextrose 50% Water* 500 ML, Amino Acid Infusion 10%* 850 ML, Sterile Wa... CENTR SCH ×12 (17:18)
[2017-07-13] MEDS: Mometasone 220 MCG MDI INH SCH (18:23)
[2017-07-14] MEDS: Heparin VIAL(*) 5000 UNITS/ML VIAL (FIVE THOUSAND) SUBCUT SCH ×3 (05:42→21:38)
[2017-07-14] MEDS: Insulin LISPRO* 1 UNITS UNIT SUBCUT SCH ×3 (05:49→18:37)
[2017-07-14 06:17] LABS: Hematocrit 26 % (42-52); Hemoglobin 8.4 g/dl (14.0-18.0); Mean Corpuscular HGB Conc 33 g/dl (31-36); Mean Corpuscular Hemoglobin 28 pg (27-31); Mean Corpuscular Volume 84 fL (80-94); Mean Platelet Volume 7 um3 (7.4-10.4); Red Blood Count 3.03 10^6/ul (4.0-5.4); Red Cell Distribution Width 19 % (10.5-15); White Blood Count 5.9 10^3/ul (3.5-10.8)
[2017-07-14 06:30] LABS: Albumin 2.1 g/dL (3.2-5.2); BUN/Creatinine Ratio 18.3 (8-20); Calcium 7.9 mg/dL (8.6-10.3); EGFR African American 173.9 (>60); EGFR Non-African American 135.2 (>60); Globulin 2.9 g/dL (2-4); Magnesium 1.8 mg/dL (1.9-2.7); Phosphorus 1.8 mg/dL (2.5-5.0); Potassium 3.5 mmol/L (3.5-5.0); Total Bilirubin 0.5 mg/dL (0.2-1.0)
[2017-07-14] MEDS: metroNIDAZOLE IV 500 MG/100ML* 500 MG/100 ML BAG IVPB SCH ×3 (06:43→22:49)
--- NOTE | 2017-07-14 09:01 | PN ---
Progress Note - Progress Note Date of Service: 07/14/17 SOAP: Subjective: Comfortable overnight Has had some intermittent left lower abdominal pain that is less today No flatus or BM, no N/V. taking only small amounts of ice chips He has been out of bed Objective: Temp Pulse Resp BP Pulse Ox 98.7 F 57 18 132/56 97 07/14/17 07:38 07/14/17 07:38 07/14/17 08:00 07/14/17 07:38 07/14/17 08:00 Intake & Output 07/12/17 07/13/17 07/14/17 07/15/17 06:59 06:59 06:59 06:59 Intake Total 600.6 1954 2277 Output Total 1115 1770 3450 225 Balance -514.4 184 -1173 -225 Weight 202 lb 13.204 oz 197 lb 11.2 oz Intake: IV Fluids 600.6 1844 300 ABX 306 394 100 ABX - CIPROFLOXACIN 46 200 NS (0.9%) 198.6 1450 NS 100ML, Cefoxitin 2G 50 IVPB 110 210 ABX - CIPROFLOXACIN 110 210 TPN/PPN 1767 Oral 0 0 0 Output: NG Tube Drainage Amount 855 342 0129 Urine 757 354 9614 225 Tobias 175 400 Other: Estimated Void Medium # Bowel Movements 0 # Voids 1 PEX: Comfortable Lungs with decreased breath sounds at the bases Abd is soft but distended; Incision is clean and dry There are no bowel sounds. Ext without edema Assessment: POD # 3 s/p exlap with small bowel resection for small bowel intussception Metastatic malignant melanoma Post-op ileus Plan: Continue NGT, ADULT CARE MANAGER TPN Increase activity Sub q heparin Check labs in AM
--- NOTE | 2017-07-14 09:39 | PN ---
Progress Note - Progress Note Date of Service: 07/14/17 SOAP: Subjective: []Doing fine. Pain is controlled. He has not passed gas. No fevers. Has TPN. No nausea and has NGT. Acetaminophen (Tylenol Supp*) 650 mg VA Q4H PRN PRN Reason: FEVER/PAIN Last Admin: 07/11/17 22:43 Dose: 650 mg Albuterol (Ventolin Hfa Inhaler*) 1 puff INH TID PRN PRN Reason: SOB/WHEEZING Dextrose (D50w Syringe 50 Ml*) 12.5 gm IV PUSH .FOR FS < 60 - SS PRN PRN Reason: FS < 60 Heparin Sodium (Porcine) (Heparin Vial(*)) 5,000 units SUBCUT Q8HR [facility] Last Admin: 07/14/17 05:42 Dose: 5,000 units Sodium Chloride (Ns 0.9% 1000 Ml*) 1,000 mls @ 0 mls/hr IV PER RATE [place] PRN Reason: KVO Last Admin: 07/12/17 15:25 Dose: 100 mls/hr Hydromorphone HCl (Dilaudid Safety Grooving Machine Operator*) 20 mg in 20 mls @ 0 mls/hr [employer] .change Q24H [place]; Per Protocol PRN Reason: Protocol Ciprofloxacin/Dextrose (Cipro 400 Mg Ivpremix(*)) 400 mg in 200 mls @ 200 mls/ hr IVPB Q12H [facility] Last Admin: 07/13/17 21:58 Dose: 200 mls/hr Metronidazole/Sodium Chloride (Flagyl 500 Mg Ivpb*) 500 mg in 100 mls @ 100 mls /hr IVPB Q8H [facility] Last Admin: 07/14/17 06:43 Dose: 100 mls/hr Insulin Human Lispro (Humalog*) 0 units SUBCUT Q6HR [place] PRN Reason: Protocol Last Admin: 07/14/17 05:49 Dose: 2 units Mometasone Furoate (Asmanex 220 Mcg Mdi *) 1 puff INH QPM [facility] Last Admin: 07/13/17 18:23 Dose: 1 puff Ondansetron HCl (Zofran Inj*) 4 mg IV Q6H PRN PRN Reason: NAUSEA Last Admin: 07/10/17 18:17 Dose: 4 mg Objective: [] Vital Signs Temp Pulse Resp BP Pulse Ox 98.7 F 57 18 132/56 97 07/14/17 07:38 07/14/17 07:38 07/14/17 08:00 07/14/17 07:38 07/14/17 08:00 HEENT - Pale, no thrush, NGT clear drainage. CTA RRR S1S2 60s No BS, did not removed bandage, mild tenderness ext good pulses and no edema. Assessment: []67 year old with metastatic melanoma status post surgery for intussusception. Two areas of bowl removed, multiple disease deposits sited. Recovering from surgery, no major complications on POD #3 Plan: []1. Melanoma. CT scan with slight progression and as expected more disease on laparotomy then can be seen with imaging. I suspect true progression. All cancer treatment will be on hold pending successful recovery from surgery and return of bowl function. At that time options will include alternative immune therapy, chemotherapy and hospice. 2. Intussuseception. Will follow through post operative course. 3. Anemia. Transfuse for Hgb < 7.0 given normal cardiac function. I am hopeful that with surgery we will see some decrease in occult intestinal bleeding. No additional iron at this time. 4. FEN. Continue TPN and adjust per labs for Mg and K. 5. High risk DVT given malignancy and central line. Heprain TID and intermittent compression. 6. Has had prolonged recovery of bowl function in past attributed to narcotics, will taper as tolerated.
[2017-07-14] MEDS: Ciprofloxacin 400MG IVPREMIX(* 400 MG/200 ML BAG IVPB SCH ×2 (10:28→21:38)
[2017-07-14] MEDS: Mometasone 220 MCG MDI INH SCH (17:39)
[2017-07-14] MEDS: TPN* 24 HR with Dextrose 50% Water* 500 ML, Amino Acid Infusion 10%* 850 ML, Sterile Wa... CENTR SCH ×12 (17:39)
[2017-07-15] MEDS: Insulin LISPRO* 1 UNITS UNIT SUBCUT SCH ×4 (00:15→18:52)
[2017-07-15] MEDS: Heparin VIAL(*) 5000 UNITS/ML VIAL (FIVE THOUSAND) SUBCUT SCH ×3 (05:48→21:51)
[2017-07-15] MEDS: metroNIDAZOLE IV 500 MG/100ML* 500 MG/100 ML BAG IVPB SCH ×3 (06:32→23:07)
--- NOTE | 2017-07-15 09:32 | PN ---
Progress Note - Progress Note Date of Service: 07/15/17 SOAP: Subjective: No flatus or BM Still with some intermittent LLQ pain that is relieved with CLIENT SERVICE CONSULTANT He would like to keep the NGT in place Otherwise no complaints Objective: Temp Pulse Resp BP Pulse Ox 98.0 F 71 16 141/73 100 07/15/17 07:38 07/15/17 07:38 07/15/17 07:38 07/15/17 07:38 07/15/17 07:38 Intake & Output 07/13/17 07/14/17 07/15/17 07/16/17 06:59 06:59 06:59 06:59 Intake Total 1954 2277 2083 Output Total 1770 3450 2265 Balance 184 -1173 -182 Weight 197 lb 11.2 oz 196 lb 9.6 oz Intake: IV Fluids 1844 300 325 ABX 394 100 ABX - CIPROFLOXACIN 200 215 ABX - FLAGYL 110 NS (0.9%) 1450 IVPB 110 210 110 ABX - CIPROFLOXACIN 110 210 ABX - FLAGYL 110 TPN/PPN 1767 1648 Oral 0 0 0 Output: NG Tube Drainage Amount 770 2000 690 Urine 600 1450 1575 Tobias 400 PEX: Comfortable Lungs are clear Abd is soft and distended. Dressing intact. Bowel sounds are present but are higher pitched and some are tinkling. Ext with mild edema Assessment: POD#5 s/p exlap with small bowel resection times two for obstruction Metastatic malignant melanoma Ileus Plan: NGT output is decreasing but still no flatus or BM-he would like to leave in for now Continue TPN Increase activity.
[2017-07-15] MEDS: Ciprofloxacin 400MG IVPREMIX(* 400 MG/200 ML BAG IVPB SCH ×2 (09:37→21:51)
[2017-07-15] MEDS: TPN* 24 HR with Dextrose 50% Water* 500 ML, Amino Acid Infusion 10%* 850 ML, Sterile Wa... CENTR SCH ×12 (17:07)
[2017-07-15] MEDS: Mometasone 220 MCG MDI INH SCH (17:56)
[2017-07-16] MEDS: Insulin LISPRO* 1 UNITS UNIT SUBCUT SCH ×5 (00:22→23:41)
[2017-07-16] MEDS: Heparin VIAL(*) 5000 UNITS/ML VIAL (FIVE THOUSAND) SUBCUT SCH ×3 (06:20→22:13)
[2017-07-16] MEDS: metroNIDAZOLE IV 500 MG/100ML* 500 MG/100 ML BAG IVPB SCH ×3 (06:23→23:26)
--- NOTE | 2017-07-16 08:40 | PN ---
Progress Note - Progress Note Date of Service: 07/16/17 SOAP: Subjective: pt seen and examined. Feels better today, some flatus, no BM, few hiccoughs OOB ambulated Objective: af vss lungs clear abdo: soft/ mild distension, tender on deep palpation no calf tenderness Path reviewed Assessment: POD 5 ex lap, SB resection x 2 Plan: clamp NGT cont TPN d/c odd ticket clerk
[2017-07-16] MEDS ORDERED: Morphine INJ* 2 MG/ML 1 ML SYRINGE (TWO MG - NEW SYRINGE VERSION) IV PRN (08:44)
[2017-07-16] MEDS: Pantoprazole IV* 40 MG IV SCH (09:08)
[2017-07-16] MEDS: Ciprofloxacin 400MG IVPREMIX(* 400 MG/200 ML BAG IVPB SCH ×2 (09:17→22:06)
--- NOTE | 2017-07-16 09:56 | PN ---
Progress Note - Progress Note Date of Service: 07/16/17 SOAP: Subjective: []Better. Has been passing gas and had tube clamped today. Still some abd pain. On TPN. No fevers. Has been walking but knee pain on left since fall last week has been inhibiting activity. Acetaminophen (Tylenol Supp*) 650 mg SC Q4H PRN PRN Reason: FEVER/PAIN Last Admin: 07/11/17 22:43 Dose: 650 mg Albuterol (Ventolin Hfa Inhaler*) 1 puff INH TID PRN PRN Reason: SOB/WHEEZING Dextrose (D50w Syringe 50 Ml*) 12.5 gm IV PUSH .FOR FS < 60 - SS PRN PRN Reason: FS < 60 Heparin Sodium (Porcine) (Heparin Vial(*)) 5,000 units SUBCUT Q8HR [facility] Last Admin: 07/16/17 06:20 Dose: 5,000 units Ciprofloxacin/Dextrose (Cipro 400 Mg Ivpremix(*)) 400 mg in 200 mls @ 200 mls/ hr IVPB Q12H [facility] Last Admin: 07/16/17 09:17 Dose: 200 mls/hr Metronidazole/Sodium Chloride (Flagyl 500 Mg Ivpb*) 500 mg in 100 mls @ 100 mls /hr IVPB Q8H [facility] Last Admin: 07/16/17 06:23 Dose: 100 mls/hr Dextrose 500 ml/ Amino Acids 850 ml/ Sterile Water 150 ml/Fat Emulsion Intravenous 250 ml/ Sodium Chloride 75 meq/Potassium Chloride 50 meq/Potassium Phosphate 20 mmole/Calcium Gluconate 10 meq/Magnesium Sulfate 10 meq/ Multivitamins 10 ml/ Trace Metals 3 ml/ Nutrition ( Parenteral) 1,837.3847 mls @ 76.558 mls/hr [facility] Last Admin: 07/15/17 17:07 Dose: 76.558 mls/hr Insulin Human Lispro (Humalog*) 0 units SUBCUT Q6HR [place] PRN Reason: Protocol Last Admin: 07/16/17 06:20 Dose: 2 units Ketorolac Tromethamine (Toradol Inj*) 15 mg IV PUSH Q6H PRN PRN Reason: PAIN Mometasone Furoate (Asmanex 220 Mcg Mdi *) 1 puff INH QPM [facility] Last Admin: 07/15/17 17:56 Dose: 1 puff Morphine Sulfate (Morphine Inj (Syringe)*) 2 mg IV Q2H PRN PRN Reason: PAIN Ondansetron HCl (Zofran Inj*) 4 mg IV Q6H PRN PRN Reason: NAUSEA Last Admin: 07/10/17 18:17 Dose: 4 mg Pantoprazole Sodium (Protonix Iv*) 40 mg IV Q24H [facility] Last Admin: 07/16/17 09:08 Dose: 40 mg Objective: [] Vital Signs Temp Pulse Resp BP Pulse Ox 98.2 F 65 18 123/57 99 07/16/17 07:22 07/16/17 07:22 07/16/17 08:00 07/16/17 07:22 07/16/17 08:00 HEENT - Pale, no thrush, NGT clear drainage, clamped. CTA RRR S1S2 60s ABD - Some BS, incision is clean and healing well. Tender to palpation. ext good pulses and no edema. Point tenderness left knee, medial tibia Assessment: []67 year old with metastatic melanoma status post surgery for intussusception. Two areas of bowl removed, multiple disease deposits sited. Recovering from surgery, no major complications on POD #6 Plan: []1. Melanoma. CT scan with slight progression and as expected more disease on laparotomy then can be seen with imaging. I suspect true progression. All cancer treatment will be on hold pending successful recovery from surgery and return of bowl function. At that time options will include alternative immune therapy, chemotherapy and hospice. E-mail to Dr. Biggs today. 2. Intussuseception. Will follow through post operative course. No complictions POD 6, will see if he tolerates clamping tube. 3. Anemia. Transfuse for Hgb < 7.0 given normal cardiac function. I am hopeful that with surgery we will see some decrease in occult intestinal bleeding. No additional iron at this time. 4. FEN. Continue TPN and adjust per labs for Mg and K. Full labs today 5. High risk DVT given malignancy and central line. Heprain TID and intermittent compression. 6. Knee pain. check XR and consult PT 7. Note sent to work, out through 07/29/17
[2017-07-16 09:57] LABS: Albumin 2.2 g/dL (3.2-5.2); BUN/Creatinine Ratio 17.7 (8-20); EGFR African American 167.4 (>60); EGFR Non-African American 130.2 (>60); Globulin 3.2 g/dL (2-4); Magnesium 1.9 mg/dL (1.9-2.7); Phosphorus 2.5 mg/dL (2.5-5.0); Potassium 3.8 mmol/L (3.5-5.0); Total Bilirubin 0.3 mg/dL (0.2-1.0); Total Protein 5.4 g/dL (6.4-8.9)
[2017-07-16 11:20] LABS: Hematocrit 28 % (42-52); Hemoglobin 9.1 g/dl (14.0-18.0); Mean Corpuscular HGB Conc 33 g/dl (31-36); Mean Corpuscular Hemoglobin 28 pg (27-31); Mean Corpuscular Volume 84 fL (80-94); Mean Platelet Volume 7 um3 (7.4-10.4); Red Blood Count 3.32 10^6/ul (4.0-5.4); Red Cell Distribution Width 19 % (10.5-15); White Blood Count 5.9 10^3/ul (3.5-10.8)
--- NOTE | 2017-07-16 12:06 | RAD ---
Indication: Left knee pain after fall. 4 views of the left knee demonstrates joint space narrowing in the medial compartment. No fractures identified. No definite joint effusion is noted. IMPRESSION: Degenerative changes of the medial compartment of left knee without fracture or joint effusion.
[2017-07-16] MEDS: TPN* 24 HR with Dextrose 50% Water* 500 ML, Amino Acid Infusion 10%* 850 ML, Sterile Wa... CENTR SCH ×12 (17:31)
[2017-07-16] MEDS: Mometasone 220 MCG MDI INH SCH (17:31)
[2017-07-16] MEDS: Ketorolac INJ* 15 MG/ML 1 ML VIAL IV PUSH PRN (21:16)
[2017-07-17] MEDS: Heparin VIAL(*) 5000 UNITS/ML VIAL (FIVE THOUSAND) SUBCUT SCH ×3 (06:32→21:40)
[2017-07-17] MEDS: metroNIDAZOLE IV 500 MG/100ML* 500 MG/100 ML BAG IVPB SCH (06:40)
[2017-07-17 06:43] LABS: Hematocrit 28 % (42-52); Mean Corpuscular HGB Conc 32 g/dl (31-36); Mean Corpuscular Hemoglobin 27 pg (27-31); Mean Corpuscular Volume 84 fL (80-94); Mean Platelet Volume 7 um3 (7.4-10.4); Red Blood Count 3.34 10^6/ul (4.0-5.4); Red Cell Distribution Width 19 % (10.5-15); White Blood Count 5.8 10^3/ul (3.5-10.8)
[2017-07-17 06:56] LABS: Albumin 2.2 g/dL (3.2-5.2); BUN/Creatinine Ratio 20.6 (8-20); Calcium 8.3 mg/dL (8.6-10.3); EGFR African American 164.4 (>60); EGFR Non-African American 127.8 (>60); Globulin 3.4 g/dL (2-4); Phosphorus 2.9 mg/dL (2.5-5.0); Potassium 4.1 mmol/L (3.5-5.0); Total Bilirubin 0.3 mg/dL (0.2-1.0); Total Protein 5.6 g/dL (6.4-8.9)
[2017-07-17] MEDS: Insulin LISPRO* 1 UNITS UNIT SUBCUT SCH ×3 (07:14→17:51)
[2017-07-17] MEDS: Ciprofloxacin 400MG IVPREMIX(* 400 MG/200 ML BAG IVPB SCH (08:49)
[2017-07-17] MEDS: Ketorolac INJ* 15 MG/ML 1 ML VIAL IV PUSH PRN (08:49)
[2017-07-17] MEDS: Pantoprazole IV* 40 MG IV SCH (08:49)
--- NOTE | 2017-07-17 11:16 | PN ---
Progress Note - Progress Note Date of Service: 07/17/17 SOAP: Subjective: pt seen and examined. NGT out, no nausea, some hiccoughs OOB ambulated Objective: af vss positive BM Pt seen with onc. Labs noted Assessment: POD 6 ex lap, SB resection x 2 Plan: cont TPN cont NPO, clears in am d/c abx
[2017-07-17] MEDS: TPN* 24 HR with Dextrose 50% Water* 500 ML, Amino Acid Infusion 10%* 850 ML, Sterile Wa... CENTR SCH ×12 (16:12)
[2017-07-17] MEDS: Mometasone 220 MCG MDI INH SCH (17:54)
[2017-07-18] MEDS: Insulin LISPRO* 1 UNITS UNIT SUBCUT SCH ×4 (00:28→18:19)
[2017-07-18] MEDS: Ketorolac INJ* 15 MG/ML 1 ML VIAL IV PUSH PRN (03:50)
[2017-07-18] MEDS: Heparin VIAL(*) 5000 UNITS/ML VIAL (FIVE THOUSAND) SUBCUT SCH ×3 (06:22→23:10)
[2017-07-18 06:30] LABS: Hematocrit 27 % (42-52); Hemoglobin 8.8 g/dl (14.0-18.0); Mean Corpuscular HGB Conc 33 g/dl (31-36); Mean Corpuscular Hemoglobin 28 pg (27-31); Mean Corpuscular Volume 84 fL (80-94); Mean Platelet Volume 7 um3 (7.4-10.4); Red Blood Count 3.17 10^6/ul (4.0-5.4); Red Cell Distribution Width 18 % (10.5-15); White Blood Count 5.6 10^3/ul (3.5-10.8)
[2017-07-18] MEDS: Pantoprazole IV* 40 MG IV SCH (07:43)
--- NOTE | 2017-07-18 10:50 | PN ---
Progress Note - Progress Note Date of Service: 07/18/17 SOAP: Subjective: Doing better today, ambulatory. Patient seen and examined with Dr. Andrade in room. Patient denies pain, nausea or vomiting. Has no complaints today. Ready to try some PO food intake. No fever or chills. Objective: Awake and alert, in NAD VSS, afebrile Abdomen soft, NT, ND. Incision C/D/I. Ext. without edema Lbas reviewed, H/H stable Assessment: A 67 y/o male, POD#7, s/p Exploratory laparotomy with small bowel resection, hx metastatic melanoma, improving. Plan: Start clear liquid diet Ambulate Hopefully advance diet and home by tomorrow or Sunday
[2017-07-18] MEDS: TPN* 24 HR with Dextrose 50% Water* 500 ML, Amino Acid Infusion 10%* 850 ML, Sterile Wa... CENTR SCH ×12 (17:10)
[2017-07-18] MEDS: Mometasone 220 MCG MDI INH SCH (18:18)
[2017-07-19] MEDS: Ketorolac INJ* 15 MG/ML 1 ML VIAL IV PUSH PRN (03:14)
[2017-07-19] MEDS: Ondansetron INJ* 2 MG/ML VIAL IV PRN (03:19)
[2017-07-19 04:10] LABS: Hematocrit 25 % (42-52); Hemoglobin 8.2 g/dl (14.0-18.0); Mean Corpuscular HGB Conc 33 g/dl (31-36); Mean Corpuscular Hemoglobin 28 pg (27-31); Mean Corpuscular Volume 85 fL (80-94); Mean Platelet Volume 8 um3 (7.4-10.4); Red Blood Count 2.96 10^6/ul (4.0-5.4); Red Cell Distribution Width 19 % (10.5-15); White Blood Count 8.3 10^3/ul (3.5-10.8)
--- NOTE | 2017-07-19 04:20 | CONSULT ---
Consult Consult: CAT response; called for pallor, tunnel vision, & hypotension Upon arrival, Mr Rubalcava, a 67M admitted with SBO 2nd metastatic melanoma s/p small bowel resection 07/11, reports he was lifting himself up in bed when he felt poorly, developed tunnel vision, felt what he thought was gas pain in the abdomen which has since resolved with administration of ketorolac. He had some nausea with dry heaves, but no chest pain, SOB, palpitation, sweats, or other symptoms. Nursing found his BP to be 70/40s. At this time, he states he feels better, but is in Trundelenburg with a pressure remaining low in the 80/40s. 1L NS is ordered. ECG: no STEMI labs ordered, pending: CBC, CMP, troponin, lactic acid XRY portable abdomen: ordered, pending general: overweight white male, pale, but in no obvious distress lungs: CTAB, normal effort CV: RRR abdomen: soft, non-distended, normal minimal post-op bailey-incisional tenderness , markedly hypoactive bowel sounds, no rebound/guarding/rigidity extremities: warm & dry integument: cool, dry, & pale; midline abdominal incision healing well without significant erythema, discharge, induration, or pain Assessment: plan hypotension ? hemmorrhage vs hypovolemia vs sepsis; persistent hypotension precludes vasovagal symptoms : transfer to ICU : review labs once available : review portable abdomen XRY once available : case reviewed with Paige Rubio MD bagman/woman on-call requested : random cortisol & initial stress dose steroid : 30cc/kg fluid bolus, if inadequate BP response start pressor Laboratory Results - last 24 hr 07/18/17 07/18/17 07/18/17 06:00 06:14 12:00 WBC 5.6 RBC 3.17 L Hgb 8.8 L Hct 27 L MCV 84 MCH 28 MCHC 33 RDW 18 H Plt Count 367 MPV 7 L Neut % (Auto) 56.8 Lymph % (Auto) 20.3 L White % (Auto) 13.8 H Eos % (Auto) 8.1 H Baso % (Auto) 1.0 Absolute Neuts (auto) 3.2 Absolute Lymphs (auto) 1.1 Absolute Monos (auto) 0.8 Absolute Eos (auto) 0.5 Absolute Basos (auto) 0.1 Absolute Nucleated RBC 0 Nucleated RBC % 0.1 Sodium Potassium Chloride Carbon Dioxide Anion Gap BUN Creatinine Est GFR ( Amer) Est GFR (Non-Af Amer) BUN/Creatinine Ratio Glucose POC Glucose (mg/dL) 162 H 170 H Lactic Acid Calcium Total Bilirubin AST ALT Alkaline Phosphatase Troponin I Total Protein Albumin Globulin Albumin/Globulin Ratio 07/18/17 07/18/17 07/19/17 17:39 23:41 03:39 WBC RBC Hgb Hct MCV MCH MCHC RDW Plt Count MPV Neut % (Auto) Lymph % (Auto) White % (Auto) Eos % (Auto) Baso % (Auto) Absolute Neuts (auto) Absolute Lymphs (auto) Absolute Monos (auto) Absolute Eos (auto) Absolute Basos (auto) Absolute Nucleated RBC Nucleated RBC % Sodium Potassium Chloride Carbon Dioxide Anion Gap BUN Creatinine Est GFR ( Amer) Est GFR (Non-Af Amer) BUN/Creatinine Ratio Glucose POC Glucose (mg/dL) 144 H 174 H 209 H Lactic Acid Calcium Total Bilirubin AST ALT Alkaline Phosphatase Troponin I Total Protein Albumin Globulin Albumin/Globulin Ratio 07/19/17 07/19/17 07/19/17 03:55 03:55 03:55 WBC 8.3 RBC 2.96 L Hgb 8.2 L Hct 25 L MCV 85 MCH 28 MCHC 33 RDW 19 H Plt Count 476 H D MPV 8 Neut % (Auto) Lymph % (Auto) White % (Auto) Eos % (Auto) Baso % (Auto) Absolute Neuts (auto) Absolute Lymphs (auto) Absolute Monos (auto) Absolute Eos (auto) Absolute Basos (auto) Absolute Nucleated RBC Nucleated RBC % Sodium 134 Potassium 4.3 Chloride 107 Carbon Dioxide 23 Anion Gap 4 BUN 14 Creatinine 0.79 Est GFR ( Amer) 126.6 Est GFR (Non-Af Amer) 98.4 BUN/Creatinine Ratio 17.7 Glucose 175 H POC Glucose (mg/dL) Lactic Acid 1.5 Calcium 7.8 L Total Bilirubin 0.30 AST 16 ALT 10 Alkaline Phosphatase 169 H Troponin I 0.01 Total Protein 5.1 L Albumin 2.0 L Globulin 3.1 Albumin/Globulin Ratio 0.6 L XRY abdomen, personally reviewed: suspicion of L infra-diaphragmatic free air; R basilar infiltrate (present on CT abd dated 07/13) Dylon Andrade MD surgery apprised of situation and remotely reviewed XRY. Recommended NG to low intermittent suction & NPO, agreed with single dose of ABX (PCN allergic, so will use meropenem), repeat labs in AM, and close monitoring for onset of abdominal pain, fever, etc. D-dimer not ordered as a positive value would be expected post-operatively and clinical suspicion for PE is low.
[2017-07-19 04:29] LABS: BUN/Creatinine Ratio 17.7 (8-20); Calcium 7.8 mg/dL (8.6-10.3); EGFR African American 126.6 (>60); EGFR Non-African American 98.4 (>60); Globulin 3.1 g/dL (2-4); Potassium 4.3 mmol/L (3.5-5.0); Total Bilirubin 0.3 mg/dL (0.2-1.0); Total Protein 5.1 g/dL (6.4-8.9)
[2017-07-19 04:42] LABS: Troponin I 0.01 ng/mL (<0.04)
[2017-07-19] MEDS ORDERED: Hydrocortisone INJ* 100 MG VIAL IV ONE (04:42)
[2017-07-19] MEDS ORDERED: Meropenem 1 GM PREMIX(*) 1 GM/50 ML BAG IV ONE (06:00)
[2017-07-19] MEDS: NS 0.9% 1000 ML* 1,000 ML IV SCH ×2 (06:19→07:57)
[2017-07-19] MEDS ORDERED: Lidocaine 1% INJ* 10 MG/ML 30 ML SDV ONE (06:27)
[2017-07-19] MEDS: Heparin VIAL(*) 5000 UNITS/ML VIAL (FIVE THOUSAND) SUBCUT SCH ×3 (06:49→22:16)
--- NOTE | 2017-07-19 06:57 | PN ---
Progress Note - Progress Note Date of Service: 07/19/17 SOAP: Subjective: Recent events noted. CAT call for hypotension, dizziness. Transferred to ICU and receiving bolus fluid. Pt c/o fatigue, dry heaves. positve flatus. HE had some abdo pain, and asked for toradol, soon after developed "tunnel vision" and dry heaved. He feels somewhat better now. He has some right sided abdo pain. Objective: MAP 60 aon A-line, HR 90s O2sat 100% on 2L NC a and o x 3 lungs clear abdo: soft/ ND, tender on deep palpationR of midline incision, no rebound staple line intact, no redness no LE edema labs noted AXR: ?free air at L hemidiaphragm, mildly dilated bowel Assessment: POD7 ex lap SB resection x2 hypotension, dry heaves Pt may have perforation of SB anastomosis vs additional disease Plan: transfer to ICU A -line placed sterily by me. NGT attempted and not successful R lateral decubitus xray NPO abx
[2017-07-19 07:02] LABS: Hematocrit 22 % (42-52); Hemoglobin 7.3 g/dl (14.0-18.0); Mean Corpuscular HGB Conc 33 g/dl (31-36); Mean Corpuscular Hemoglobin 28 pg (27-31); Mean Corpuscular Volume 84 fL (80-94); Mean Platelet Volume 7 um3 (7.4-10.4); Red Blood Count 2.64 10^6/ul (4.0-5.4); Red Cell Distribution Width 18 % (10.5-15)
[2017-07-19 07:16] LABS: BUN/Creatinine Ratio 23.6 (8-20); Calcium 7.5 mg/dL (8.6-10.3); Direct Bilirubin 0.1 mg/dL (0.03-0.18); EGFR African American 140.9 (>60); EGFR Non-African American 109.6 (>60); Indirect Bilirubin 0.2 mg/dL (0.3-1.0); Potassium 4.3 mmol/L (3.5-5.0); Total Bilirubin 0.3 mg/dL (0.2-1.0)
[2017-07-19] MEDS: Insulin LISPRO* 1 UNITS UNIT SUBCUT SCH ×4 (07:20→21:32)
--- NOTE | 2017-07-19 08:03 | RAD ---
Edited for charges. HISTORY: Postop hypotension COMPARISONS: CT dated July 13, 2017 VIEWS: Frontal supine and upright views of the abdomen at 4:54 AM, with right lateral decubitus views of the abdomen at approximately 7:04 AM FINDINGS: BOWEL: There is a nonspecific bowel gas pattern with nondilated small bowel gas. There is gaseous distention of the colon. CALCULI: There are no abnormal calculi. BONES AND SOFT TISSUES: There are no osseous abnormalities. OTHER FINDINGS: The lung bases are clear. There is questionable subphrenic gas within the left upper quadrant. A right internal jugular venous catheter is noted with the tip overlying the cavoatrial junction. IMPRESSION: QUESTIONABLE SUBPHRENIC GAS IN THE LEFT UPPER QUADRANT. RECOMMEND CONSIDERATION OF FURTHER EVALUATION WITH CT OF THE ABDOMEN AND PELVIS. FINDINGS WERE DISCUSSED WITH DR. GANT ON THE MORNING OF 2016 [facility]
[2017-07-19] MEDS: Iohexol 300 (CONTRAST) 100 ML SDV IV ONE ×2 (08:47→08:49)
--- NOTE | 2017-07-19 09:22 | RAD ---
Indication: Evaluate for free air. Abdominal pain, Contrast: Administered 121.2 ml of OMNIPAQUE 300 mg/ml CT of the abdomen and pelvis was performed after IV contrast administration. Coronal and sagittal reconstructed images were obtained. Comparison is made to previous exam dated July 13, 2017. Right lower lobe lobulated mass is again identified unchanged from previous exam. Small left pleural effusion is unchanged. The heart demonstrates no pericardial effusion. Liver is normal in size. No focal lesions or intrahepatic ductal dilatation is noted although air is noted in the left lobe biliary tree. A biliary stent is in place. The pancreas demonstrates no mass or pancreatic ductal dilatation. The spleen is normal in size. The pancreas demonstrates a mass in the body and tail of the pelvis measuring up to 7.6 cm. No adrenal masses are noted. There is a left adrenal mass measuring up to 4.2 cm. No retroperitoneal lymphadenopathy is noted. There is a peritoneal mass just adjacent to the abdominal wall in the right lower quadrant measuring up to 6 cm. Urinary bladder is unremarkable. No definite free air is noted. The stomach is markedly distended with fluid. There appears to be pneumatosis in the lesser curvature of the stomach. The bony structures are otherwise unremarkable. IMPRESSION: No definite free air is noted. There is a dilated stomach with pneumatosis in the left lesser curvature of the stomach. Air is noted in the biliary tree. There is a mass in the lower pole of the left kidney measuring 4.2 cm. Mass is noted in the pancreatic tail Anterior abdominal wall mass likely representing a peritoneal implant measures 6.0 cm.
[2017-07-19] MEDS: Pantoprazole IV* 40 MG IV SCH ×2 (09:40→18:45)
[2017-07-19 14:32] LABS: Hematocrit 20 % (42-52); Mean Corpuscular HGB Conc 32 g/dl (31-36); Mean Corpuscular Hemoglobin 27 pg (27-31); Mean Corpuscular Volume 85 fL (80-94); Mean Platelet Volume 8 um3 (7.4-10.4); Red Blood Count 2.31 10^6/ul (4.0-5.4); Red Cell Distribution Width 18 % (10.5-15); White Blood Count 6.9 10^3/ul (3.5-10.8)
[2017-07-19 14:35] LABS: Comments Flag Yes
[2017-07-19 14:38] LABS: Hemoglobin 6.2 g/dl (14.0-18.0)
--- NOTE | 2017-07-19 16:12 | PN ---
Critical Care Services: 67 y/o male with malignant (metastatic) melanoma hospitalized for SBO secondary to intussusception, who underwent reduction of the intussusception and small bowel resection on 07/11. Was brought to the ICU this AM because of hypotension ( which responded to volume resuscitation). CT scan of abdomen showed marked gastric dilatation with pneumatosis in the lesser curvature. An NG tube was placed, with return of darkly colored gastric secretions. Vital Signs: Temp Pulse Resp BP SpO2 FiO2 97.9 F 83 15 109/61 96 Physical Exam: Gen:Patient is alert and resting comfortably. HEENT: NG tube in right nares draining blackish fluid. Lungs: Clear Abdomen: Not distended, but BS absent (after 1 minute). Extremities: No cyanosis or edema. Fluid Balance (Past 24 Hours): 07/19/17 06:59 Intake Total 3273 Output Total 1450 Balance +1823 Weight 200 lb Intake: IV Fluids 1000 ABX - CIPROFLOXACIN ABX - FLAGYL NS (0.9%) 1000 IVPB ABX - CIPROFLOXACIN ABX - FLAGYL TPN/PPN 1673 Oral 600 Output: NG Tube Drainage Amount Urine 1450 Other: # Bowel Movements 0 Estimated Stool Amount Labs: 07/19/17 07/19/17 07/19/17 03:55 03:55 03:55 WBC 8.3 Hgb 8.2 Hct 25 L Plt Count 476 Sodium 134 Potassium 4.3 Chloride 107 Carbon Dioxide 23 Anion Gap 4 BUN 14 Creatinine 0.79 Glucose 175 H Lactic Acid 1.5 Calcium 7.8 L Total Bilirubin 0.30 Direct Bilirubin Indirect Bilirubin AST 16 ALT 10 Alkaline Phosphatase 169 H Troponin I 0.01 Total Protein 5.1 L Albumin 2.0 L Globulin 3.1 Albumin/Globulin Ratio 0.6 L Procalcitonin Cortisol 21.71 Blood Type Antibody Screen Crossmatch 07/19/17 07/19/17 07/19/17 06:52 06:52 06:52 WBC 9.0 Hgb 7.3 Hct 22 L Plt Count 443 Sodium 133 Potassium 4.3 Chloride 107 Carbon Dioxide 20 L Anion Gap 6 BUN 17 Creatinine 0.72 Glucose 212 H Lactic Acid 1.7 Calcium 7.5 L Total Bilirubin 0.30 Direct Bilirubin 0.10 Indirect Bilirubin 0.2 L AST 17 ALT 10 Alkaline Phosphatase 164 H Troponin I Total Protein 5.0 L Albumin 2.0 L Globulin 3.0 Albumin/Globulin Ratio 0.7 L 07/19/17 07/19/17 07/19/17 06:52 07:00 13:35 WBC 6.9 Hgb 6.2 Hct 20 L Plt Count 400 POC Glucose (mg/dL) 224 H Procalcitonin 0.1 Studies: CT Scan of abdomen: Results mentioned earlier. Nutrition: TPN Impression: 1. Postop gastroparesis (no evidence for a gastric outlet obstruction). The presence of air in the stomach wall is concerning, and indicates the severity of the gastric dilatation. 2. Hypotension earlier could have been prompted by fluid accumulation in the stomach. 3. Not sure if decreasing Hb represents blood loss or dilution from crystalloid resuscitation of low BP. Plan: 1. Gastric decompression with NG tube (ongoing). 2. Packed RBCs to keep Hb > 7 g/dL. Will also order a gastroccult test for blood in gastric aspirate. I have informed the patient of the current diagnosis and management plan. Critical Care Time: 60 minutes (not including time to place nasogastric tube).
[2017-07-19] MEDS: TPN* 24 HR with Dextrose 50% Water* 500 ML, Amino Acid Infusion 10%* 850 ML, Sterile Wa... CENTR SCH ×12 (17:39)
[2017-07-19] MEDS: Mometasone 220 MCG MDI INH SCH (20:01)
[2017-07-20] MEDS: Insulin LISPRO* 1 UNITS UNIT SUBCUT SCH ×4 (02:45→18:49)
[2017-07-20 06:31] LABS: Hematocrit 23 % (42-52); Hemoglobin 7.6 g/dl (14.0-18.0); Mean Corpuscular HGB Conc 33 g/dl (31-36); Mean Corpuscular Hemoglobin 28 pg (27-31); Mean Corpuscular Volume 84 fL (80-94); Mean Platelet Volume 8 um3 (7.4-10.4); Red Blood Count 2.69 10^6/ul (4.0-5.4); Red Cell Distribution Width 17 % (10.5-15); White Blood Count 7.9 10^3/ul (3.5-10.8)
[2017-07-20 06:47] LABS: BUN/Creatinine Ratio 37.5 (8-20); Calcium 7.7 mg/dL (8.6-10.3); EGFR African American 188.3 (>60); EGFR Non-African American 146.4 (>60)
[2017-07-20] MEDS: Pantoprazole IV* 40 MG IV SCH ×2 (06:51→18:50)
[2017-07-20] MEDS: Heparin VIAL(*) 5000 UNITS/ML VIAL (FIVE THOUSAND) SUBCUT SCH ×3 (06:51→21:13)
[2017-07-20 08:20] LABS: Globulin 2.8 g/dL (2-4); Magnesium 1.8 mg/dL (1.9-2.7); Phosphorus 2.2 mg/dL (2.5-5.0); Total Bilirubin 0.3 mg/dL (0.2-1.0); Total Protein 4.8 g/dL (6.4-8.9)
--- NOTE | 2017-07-20 09:58 | PN ---
Progress Note - Progress Note Date of Service: 07/20/17 SOAP: Subjective: []Yesterday had NGT out and had taken two meals with clear liquids and had tolerated ok. Last night light headed and tunnel vision. Hypotension and transferred to ICU. NGT with dark fluid but gastric guiac negative. CT with marked distension of stomach, air in stomach wall. Hgb dropped after hydration, unclear if continued GIB. This am stable with NTG, BP has improved. Pain controlled. Tried to get up yesterday by RN report but dizzy and low BP. Has not tried again today. Acetaminophen (Tylenol Supp*) 650 mg [place] Q4H PRN PRN Reason: FEVER/PAIN Last Admin: 07/11/17 22:43 Dose: 650 mg Albuterol (Ventolin Hfa Inhaler*) 1 puff INH TID PRN PRN Reason: SOB/WHEEZING Dextrose (D50w Syringe 50 Ml*) 12.5 gm IV PUSH .FOR FS < 60 - SS PRN PRN Reason: FS < 60 Heparin Sodium (Porcine) (Heparin Vial(*)) 5,000 units SUBCUT Q8HR [facility] Last Admin: 07/20/17 06:51 Dose: 5,000 units Dextrose 500 ml/ Amino Acids 850 ml/ Sterile Water 150 ml/Fat Emulsion Intravenous 250 ml/ Sodium Chloride 100 meq/Potassium Chloride 50 meq/Potassium Phosphate 20 mmole/Calcium Gluconate 10 meq/Magnesium Sulfate 10 meq/ Multivitamins 10 ml/ Trace Metals 1 ml/ Nutrition ( Parenteral) 1,841.6347 mls @ 76.7 mls/hr [facility] 1700 [facility] Stop: 07/20/17 16:59 Last Admin: 07/19/17 17:39 Dose: 76.7 mls/hr Insulin Human Lispro (Humalog*) 0 units SUBCUT Q6HR [facility] PRN Reason: Protocol Last Admin: 07/20/17 06:49 Dose: 2 units Mometasone Furoate (Asmanex 220 Mcg Mdi *) 1 puff INH QPM [facility] Last Admin: 07/19/17 20:01 Dose: 1 puff Morphine Sulfate (Morphine Inj (Syringe)*) 2 mg IV Q2H PRN PRN Reason: PAIN Ondansetron HCl (Zofran Inj*) 4 mg IV Q6H PRN PRN Reason: NAUSEA Last Admin: 07/19/17 03:19 Dose: 4 mg Pantoprazole Sodium (Protonix Iv*) 40 mg IV 0600,1800 [facility] Last Admin: 07/20/17 06:51 Dose: 40 mg Objective: [] Vital Signs Temp Pulse Resp BP Pulse Ox 98.5 F 85 27 143/84 97 07/20/17 04:00 07/20/17 08:00 07/20/17 08:00 07/20/17 01:22 07/20/17 08:29 HEENT - Pale, no thrush, NGT Dark drainage. ABD - Some BS, mild distension, not tender to mild palpation. Neuro - Working on email in room, baseline MS. Assessment: []67 year old with metastatic melanoma status post surgery for intussusception. Two areas of bowl removed, multiple disease deposits sited. Slow recovery and now course complicated by drop in BP associated with marked abdominal distension and air in stomach wall. Plan: []1. Gastric distension. He has difficulty with small bowl contractility after prior surgery and may be similar. Differential for gastroparesis is chronic distension, secondary to immunotherpy and neuropathy, idiopathic. Case discussed with Dr. Andrade. Will leave NGT in over weekend and check CT on Sunday , non contrast. If decompressed will check EGD on Sunday and then re-challenge clear liquids pending results. If he has continued distension then venting PEG. 2. Hypotension. Possible fluid shifts with gastric distension, compression of IVC, negative fluid balance, GIB. Could be immune based adrenal insufficiency. Will follow Hgb and transfuse to > 7.0. EGD Sunday. Send Cortisol, TSH, free T4 , Testosterone. 3. Melanoma. CT scan with slight progression in 2 lesions from May, lesion seems slightly smaller. As expected more disease on laparotomy then can be seen with imaging. All cancer treatment will be on hold pending successful recovery from surgery and return of bowl function. At that time options will include alternative immune therapy, chemotherapy and hospice. E-mail sent to Dr. Biggs. 4. Anemia. Transfuse for Hgb < 7.0 given normal cardiac function. GIB from stomach or small bowl. Will consider IV iron. 5. FEN. Continue TPN and adjust per lab. TPN panel for tomorrow. 6. High risk DVT given malignancy and central line. Heprain TID and intermittent compression. 7. Dr. Andrade will consult GI and manage NGT, we will manage anemia and TPN. 8. Follow with ICU team today and transfer to floor tomorrow if doing well.
--- NOTE | 2017-07-20 10:15 | PN ---
Progress Note - Progress Note Date of Service: 07/20/17 SOAP: Subjective: Pt seen and examined. doing better today. CT scan reviewed. Received 2 units pRBCs. Case d/w oncology and CCM. Pt has some abdo pain. Orthostatic hypotension. Objective: af vss NGT min blood-appearing output lungs clear abdo: soft/ ND/ incisional tenderness. No rebound staple line intact CT pneumotosis on lesser curve stomach dilated bowel throughout Labs noted Assessment: S/p ex lap, SB resection x2 hypotension yesterday resolved. Work up c/w ileus, ?gastroparesis, GI bleed Plan: Transfuse as neede. TPN cont NGT repeat CT scan on Sunday Possible EGD Sunday
[2017-07-20] MEDS: Metoclopramide IV* 5 MG/ML 2 ML VIAL IV SCH ×2 (14:54→21:13)
[2017-07-20 15:27] LABS: Free T4 0.95 ng/dL (0.61-1.12)
[2017-07-20 15:41] LABS: TSH (Thyroid Stimulating Horm) 0.72 mcIU/mL (0.34-5.60)
[2017-07-20] MEDS ORDERED: TPN* 24 HR with Sodium Chloride Conc 23.4%* 100 MEQ, Potassium Chloride TPN 50 MEQ, Pot... CENT\\PICC SCH ×12 (17:00)
--- NOTE | 2017-07-20 17:59 | PN ---
Critical Care Services: Patient feeling more tired today, and temp up to 101.4 at 1700 hrs. No associated chills or abdominal pain. Patient is unaware of the fever. Vital Signs: Temp Pulse Resp BP SpO2 FiO2 101.4 F 88 20 143/84 97 RA Physical Exam: Gen:Resting comfortably. HEENT: NG tube in right nares. Abdomen: Mild tenderness throughout but without involuntary guarding. Extremities: No diaphoresis. Fluid Balance (Past 24 Hours): 07/20/17 06:59 Intake Total 5126 Output Total 3375 Balance +1751 Weight 200 lb Intake: IV Fluids 3066 NS (0.9%) 3066 TPN/PPN 1519 Oral Packed Cells 541 Output: NG Tube Drainage 100 Urine 3275 Other: Date of Last Bowel 07/20/17 Movement # Bowel Movements 1 Labs: 07/20/17 07/20/17 05:45 05:45 WBC 7.9 Hgb 7.6 L Hct 23 Plt Count 352 Sodium 137 Potassium 4.0 Chloride 110 Carbon Dioxide 23 Anion Gap 4 BUN 21 Creatinine 0.56 Glucose 135 Calcium 7.7 Phosphorus 2.2 Magnesium 1.8 Total Bilirubin 0.30 AST 22 ALT 11 Alkaline Phosphatase 130 Total Protein 4.8 Albumin 2.0 Globulin 2.8 Albumin/Globulin Ratio 0.7 Prealbumin 14 L Triglycerides 150 Cholesterol 69 Nutrition: TPN Impression: 1. Presumed origin of fever is the abdomen. 2. NG drainage minimal. 3. No evidence of ongoing GI bleed. Plan: Blood and urine cultures, then start empiric Rx with meropenem (patient is allergic to penicillin). Management otherwise unchanged. Blood transfusion not necessary. Critical Care Time: 45 minutes
[2017-07-20] MEDS: Meropenem 1 GM PREMIX(*) 1 GM/50 ML BAG IV SCH (18:50)
[2017-07-20] MEDS: Mometasone 220 MCG MDI INH SCH (19:23)
[2017-07-20] MEDS: Acetaminophen SUPP* 650 MG SUPP PR PRN (21:46)
[2017-07-21] MEDS: Insulin LISPRO* 1 UNITS UNIT SUBCUT SCH ×5 (00:05→23:58)
[2017-07-21] MEDS: Meropenem 1 GM PREMIX(*) 1 GM/50 ML BAG IV SCH ×3 (03:01→19:39)
[2017-07-21 05:58] LABS: Mean Platelet Volume 7 um3 (7.4-10.4); Red Blood Count 1.09 10^6/ul (4.0-5.4)
[2017-07-21 06:00] LABS: Hematocrit 9 % (42-52); Mean Corpuscular HGB Conc 33 g/dl (31-36); Mean Corpuscular Hemoglobin 29 pg (27-31); Mean Corpuscular Volume 85 fL (80-94); Red Cell Distribution Width 17 % (10.5-15); White Blood Count 7.9 10^3/ul (3.5-10.8)
[2017-07-21 06:10] LABS: Comments Flag Yes
[2017-07-21 06:12] LABS: Add Diff/Slide Review? Slide Review Added; Albumin 1.9 g/dL (3.2-5.2); BUN/Creatinine Ratio 27.8 (8-20); Calcium 7.1 mg/dL (8.6-10.3); EGFR African American 196.4 (>60); EGFR Non-African American 152.7 (>60); Globulin 2.8 g/dL (2-4); Magnesium 1.6 mg/dL (1.9-2.7); Phosphorus 2.3 mg/dL (2.5-5.0); Potassium 3.5 mmol/L (3.5-5.0); Total Bilirubin 0.3 mg/dL (0.2-1.0); Total Protein 4.7 g/dL (6.4-8.9)
[2017-07-21 06:13] LABS: Hemoglobin 3.1 g/dl (14.0-18.0)
[2017-07-21] MEDS: Pantoprazole IV* 40 MG IV SCH ×3 (06:27→19:34)
[2017-07-21] MEDS: Heparin VIAL(*) 5000 UNITS/ML VIAL (FIVE THOUSAND) SUBCUT SCH ×3 (06:27→21:19)
[2017-07-21 06:41] LABS: Hematocrit 22 % (42-52); Hemoglobin 7.4 g/dl (14.0-18.0)
[2017-07-21 06:56] LABS: Macrocytosis 1+; Microcytosis 1+
[2017-07-21 06:57] LABS: Spherocytes 2+
--- NOTE | 2017-07-21 08:07 | PN ---
Progress Note - Progress Note Date of Service: 07/21/17 SOAP: Subjective: fevers over night noted. reports less bowel movements in the last 24 hrs than the previous. intermittent LLQ "twinges" of pain. OOB to chair yesterday for a short period of time. Objective: Vital Signs Temp Pulse Resp BP Pulse Ox 98.5 F 76 19 113/58 100 07/21/17 04:00 07/21/17 07:01 07/21/17 07:01 07/21/17 07:00 07/21/17 07:01 lying flat in NAD perr eomi NGT draining black liquid (occult negative) CTA bl s1 s2 nl relatively soft, mass right of the umbilicus, well healed midline incision hyperactive bowel sounds no le edema non focal neurological exam Albuterol (Ventolin Hfa Inhaler*) 1 puff INH TID PRN PRN Reason: SOB/WHEEZING Dextrose (D50w Syringe 50 Ml*) 12.5 gm IV PUSH .FOR FS < 60 - SS PRN PRN Reason: FS < 60 Heparin Sodium (Porcine) (Heparin Vial(*)) 5,000 units SUBCUT Q8HR [facility] Last Admin: 07/21/17 06:27 Dose: 5,000 units Sodium Chloride 100 meq/Potassium Chloride 50 meq/Potassium Phosphate 20 mmole/ Calcium Gluconate 10 meq/Magnesium Sulfate 20 meq/Multivitamins 10 ml/ Trace Metals 1 ml/ Insulin Human Regular 12 units/ Dextrose 1, 000 ml/ Amino Acids 1, 000 ml/Fat Emulsion Intravenous 250 ml/ Nutrition (Parenteral) 2,344.2178 mls @ 97.676 mls/hr [facility] 1700 [facility] Stop: 07/24/17 16:59 Last Admin: 07/20/17 17:33 Dose: 97.676 mls/hr Meropenem (Merrem 1 Gm Premix(*)) 1 gm in 50 mls @ 100 mls/hr IV Q8H [facility] Last Admin: 07/21/17 03:01 Dose: 100 mls/hr Insulin Human Lispro (Humalog*) 0 units SUBCUT Q6HR [facility] PRN Reason: Protocol Last Admin: 07/21/17 06:28 Dose: 2 units Metoclopramide HCl (Reglan Iv*) 10 mg IV TID [facility] Last Admin: 07/20/17 21:13 Dose: 10 mg Mometasone Furoate (Asmanex 220 Mcg Mdi *) 1 puff INH QPM [facility] Last Admin: 07/20/17 19:23 Dose: 1 puff Morphine Sulfate (Morphine Inj (Syringe)*) 2 mg IV Q2H PRN PRN Reason: PAIN Ondansetron HCl (Zofran Inj*) 4 mg IV Q6H PRN PRN Reason: NAUSEA Last Admin: 07/19/17 03:19 Dose: 4 mg Pantoprazole Sodium (Protonix Iv*) 40 mg IV 0600,1800 [facility] Last Admin: 07/21/17 06:27 Dose: 40 mg Laboratory Results - last 24 hr 07/20/17 07/20/17 07/20/17 05:45 06:44 12:00 WBC RBC Hgb Hct MCV MCH MCHC RDW Plt Count MPV Neut % (Auto) Lymph % (Auto) [place] % (Auto) Eos % (Auto) Baso % (Auto) Absolute Neuts (auto) Absolute Lymphs (auto) Absolute Monos (auto) Absolute Eos (auto) Absolute Basos (auto) Absolute Nucleated RBC Nucleated RBC % Normal RBC Morphology Microcytosis Macrocytosis Spherocytes Sodium Potassium Chloride Carbon Dioxide Anion Gap BUN Creatinine Est GFR ( Amer) Est GFR (Non-Af Amer) BUN/Creatinine Ratio Glucose POC Glucose (mg/dL) 160 H Calcium Phosphorus 2.2 L Magnesium 1.8 L Total Bilirubin 0.30 AST 22 ALT 11 Alkaline Phosphatase 130 H Total Protein 4.8 L Albumin 2.0 L Globulin 2.8 Albumin/Globulin Ratio 0.7 L Prealbumin Triglycerides 150 Cholesterol 69 TSH 0.72 Free T4 0.95 Total Testosterone 95.29 L Cortisol 14.68 07/21/17 07/21/17 07/21/17 05:40 05:40 05:44 WBC 7.9 RBC 1.09 L Hgb 3.1 L* Hct 9 L MCV 85 MCH 29 MCHC 33 RDW 17 H Plt Count 356 MPV 7 L Neut % (Auto) 67.4 Lymph % (Auto) 16.4 L [place] % (Auto) 12.3 H Eos % (Auto) 2.8 Baso % (Auto) 1.1 Absolute Neuts (auto) 5.3 Absolute Lymphs (auto) 1.3 Absolute Monos (auto) 1.0 H Absolute Eos (auto) 0.2 Absolute Basos (auto) 0.1 Absolute Nucleated RBC 0.01 Nucleated RBC % 0.2 Normal RBC Morphology Not Reportable Microcytosis 1+ Macrocytosis 1+ Spherocytes 2+ Sodium 135 Potassium 3.5 Chloride 109 Carbon Dioxide 23 Anion Gap 3 BUN 15 Creatinine 0.54 L Est GFR ( Amer) 196.4 Est GFR (Non-Af Amer) 152.7 BUN/Creatinine Ratio 27.8 H Glucose 148 H POC Glucose (mg/dL) 169 H Calcium 7.1 L Phosphorus 2.3 L Magnesium 1.6 L Total Bilirubin 0.30 AST 42 H ALT 27 Alkaline Phosphatase 140 H Total Protein 4.7 L Albumin 1.9 L Globulin 2.8 Albumin/Globulin Ratio 0.7 L Prealbumin 14 L Triglycerides 108 Cholesterol 70 TSH Free T4 Total Testosterone Cortisol Laboratory Tests 07/21/17 06:20 Hgb 7.4 L Hct 22 L Assessment: 67 yo M w metastatic melanoma admitted with a bowel obstruction now sp resection. postop course complicated by ileus, hypotension and now fevers in the setting of a massively dilated stomach and pneumotosis concerning for translocation. Plan: -Appreciate [facility] co-management -cont meropenam -NGT drainage continuing -plan for CT tomorrow (CT with iv contrast only ordered) -cont TPN -cont sc heparin
[2017-07-21] MEDS: Metoclopramide IV* 5 MG/ML 2 ML VIAL IV SCH ×3 (09:14→21:21)
--- NOTE | 2017-07-21 11:08 | PN ---
Progress Note - Progress Note Date of Service: 07/21/17 SOAP: Subjective: Pt seen and examined. doing better today. Pt has some abdo pain when shifting in bed. fatigue, but no dizziness. flatus and small BM Objective: af vss NGT min blood-appearing output UO great lungs pos crackles at L base abdo: soft/ ND/ minimal tenderness. No rebound staple line intact, no redness positive BS, hypoactive 07/20/17 07/20/17 07/20/17 06:44 12:00 12:08 WBC RBC Hgb Hct MCV MCH MCHC RDW Plt Count MPV Neut % (Auto) Lymph % (Auto) [place] % (Auto) Eos % (Auto) Baso % (Auto) Absolute Neuts (auto) Absolute Lymphs (auto) Absolute Monos (auto) Absolute Eos (auto) Absolute Basos (auto) Absolute Nucleated RBC Nucleated RBC % Normal RBC Morphology Microcytosis Macrocytosis Spherocytes Sodium Potassium Chloride Carbon Dioxide Anion Gap BUN Creatinine Est GFR ( Amer) Est GFR (Non-Af Amer) BUN/Creatinine Ratio Glucose POC Glucose (mg/dL) 160 H 173 H Calcium Phosphorus Magnesium Total Bilirubin AST ALT Alkaline Phosphatase Total Protein Albumin Globulin Albumin/Globulin Ratio Prealbumin Triglycerides Cholesterol TSH 0.72 Free T4 0.95 Total Testosterone 95.29 L Cortisol 14.68 07/20/17 07/21/17 07/21/17 18:42 00:01 05:40 WBC 7.9 RBC 1.09 L Hgb 3.1 L* Hct 9 L MCV 85 MCH 29 MCHC 33 RDW 17 H Plt Count 356 MPV 7 L Neut % (Auto) 67.4 Lymph % (Auto) 16.4 L [place] % (Auto) 12.3 H Eos % (Auto) 2.8 Baso % (Auto) 1.1 Absolute Neuts (auto) 5.3 Absolute Lymphs (auto) 1.3 Absolute Monos (auto) 1.0 H Absolute Eos (auto) 0.2 Absolute Basos (auto) 0.1 Absolute Nucleated RBC 0.01 Nucleated RBC % 0.2 Normal RBC Morphology Not Reportable Microcytosis 1+ Macrocytosis 1+ Spherocytes 2+ Sodium Potassium Chloride Carbon Dioxide Anion Gap BUN Creatinine Est GFR ( Amer) Est GFR (Non-Af Amer) BUN/Creatinine Ratio Glucose POC Glucose (mg/dL) 178 H 185 H Calcium Phosphorus Magnesium Total Bilirubin AST ALT Alkaline Phosphatase Total Protein Albumin Globulin Albumin/Globulin Ratio Prealbumin Triglycerides Cholesterol TSH Free T4 Total Testosterone Cortisol 07/21/17 07/21/17 07/21/17 05:40 05:44 06:20 WBC RBC Hgb 7.4 L Hct 22 L MCV MCH MCHC RDW Plt Count MPV Neut % (Auto) Lymph % (Auto) [place] % (Auto) Eos % (Auto) Baso % (Auto) Absolute Neuts (auto) Absolute Lymphs (auto) Absolute Monos (auto) Absolute Eos (auto) Absolute Basos (auto) Absolute Nucleated RBC Nucleated RBC % Normal RBC Morphology Microcytosis Macrocytosis Spherocytes Sodium 135 Potassium 3.5 Chloride 109 Carbon Dioxide 23 Anion Gap 3 BUN 15 Creatinine 0.54 L Est GFR ( Amer) 196.4 Est GFR (Non-Af Amer) 152.7 BUN/Creatinine Ratio 27.8 H Glucose 148 H POC Glucose (mg/dL) 169 H Calcium 7.1 L Phosphorus 2.3 L Magnesium 1.6 L Total Bilirubin 0.30 AST 42 H ALT 27 Alkaline Phosphatase 140 H Total Protein 4.7 L Albumin 1.9 L Globulin 2.8 Albumin/Globulin Ratio 0.7 L Prealbumin 14 L Triglycerides 108 Cholesterol 70 TSH Free T4 Total Testosterone Cortisol Assessment: S/p ex lap, SB resection x2 hypotension resolved, MAP>90. Work up c/w ileus, likely GI bleed Plan: Transfuse as needed. cont NGT repeat CT scan tomorrow. IF dilated stomach persists despite NGT, EGD with PEG on Sunday. If non-dilated, but persistent red gastric drainage(heme neg?), then EGD only-- Dr Mcdermott aware. Transfuse to floor pulmonary toilet labs iin am replete lytes, TPN
[2017-07-21] MEDS: [UNRECOGNIZED DRUG - OTHER] CENT\\PICC SCH ×12 (17:24)
[2017-07-21] MEDS: SODIUM CHLORIDE CENT\\PICC SCH ×12 (17:24)
[2017-07-21] MEDS: POTASSIUM CHLORIDE TPN CENT\\PICC SCH ×12 (17:24)
[2017-07-21] MEDS: TPN CENT\\PICC SCH ×12 (17:24)
[2017-07-21] MEDS: Mometasone 220 MCG MDI INH SCH (18:00)
[2017-07-22] MEDS: Meropenem 1 GM PREMIX(*) 1 GM/50 ML BAG IV SCH ×3 (03:15→18:14)
[2017-07-22 05:38] LABS: Hematocrit 20 % (42-52); Mean Corpuscular HGB Conc 34 g/dl (31-36); Mean Corpuscular Hemoglobin 29 pg (27-31); Mean Corpuscular Volume 85 fL (80-94); Mean Platelet Volume 8 um3 (7.4-10.4); Red Blood Count 2.34 10^6/ul (4.0-5.4); Red Cell Distribution Width 17 % (10.5-15); White Blood Count 16.4 10^3/ul (3.5-10.8)
[2017-07-22 05:39] LABS: Comments Flag Yes; Hemoglobin 6.7 g/dl (14.0-18.0)
--- NOTE | 2017-07-22 05:39 | CONSULT ---
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 This evening the nurse was checking him after an ~200cc melanotic liquid stool when he began reporting epigastric/inferior chest discomfort, became diaphoretic, developed a brief R lateral gaze and unresponsiveness. Upon my arrival, he was conscious and described tunneling of his vision with waxing and waning inferior chest/epigastric discomfort. His forehead is diaphoretic. He denies other pain/ discomfort, has not required or been given narcotics recently. Blood sugar is > 250. Patient position changed to supine with infusion of 1L NS bolus. Blood pressure initially systolic 80s, improved to a systolic of 90s, but he continued to report a mild inferior chest/epigastric discomfort and mild tunneling of vision. He denies focal W/N/T, SOB, palpitations, abdominal pain, or other issues. ordered labs: CBC, CMP, lactate, troponin, & blood CXs ECG: sinus tachycardia rate 106, no ectopy, subtle ST depressions V3-6, I, & II which are new compared to 07/19 general: pale, diaphoretic white male appearing ill, NG in place draining bright red lungs: scattered crackles, fair aeration, normal effort CV: TR/RR, normal S1S2 abdomen: soft, non-tender, non-distended, hypoactive bowel sounds, no rebound/ guarding/rigidity extremities: cool & dry assessment: plan shock, suspect septic vs hypovolemic/hemorrhagic given clinical picture : transfer to ICU : 2L IVF bolus : maintain patient supine : pressors, if BP fails to respond to above : transfuse 1 unit pRBCs & trend H&H : continue meropenem : Ced Girard MD oncology apprised : Paige Rubio MD building insulation installer apprised : Dylon Andrade MD surgery apprised melana per rectum, bright red into NG : transfuse 1 unit pRBC : cycle H&H Q3H x2 abnormal ECG : suspect demand ischemia from hypotension : cycle troponin Q3H x2 : expand volume via pRBCs & IVFs as above
[2017-07-22 05:40] LABS: Add Diff/Slide Review? Slide Review Added
[2017-07-22 05:54] LABS: Calcium 7.6 mg/dL (8.6-10.3); EGFR African American 111.8 (>60); EGFR Non-African American 86.9 (>60); Potassium 4.2 mmol/L (3.5-5.0)
[2017-07-22 05:57] LABS: Troponin I 0.01 ng/mL (<0.04)
[2017-07-22] MEDS: Insulin LISPRO* 1 UNITS UNIT SUBCUT SCH ×3 (05:57→18:10)
[2017-07-22] MEDS: Pantoprazole IV* 40 MG IV SCH ×2 (05:57→18:14)
[2017-07-22] MEDS: Heparin VIAL(*) 5000 UNITS/ML VIAL (FIVE THOUSAND) SUBCUT SCH ×3 (05:58→22:42)
[2017-07-22] MEDS: NS 0.9% 1000 ML* 1,000 ML IV SCH ×2 (06:15→06:45)
[2017-07-22] MEDS: Metoclopramide IV* 5 MG/ML 2 ML VIAL IV SCH ×3 (08:27→22:44)
--- NOTE | 2017-07-22 10:41 | PN ---
Progress Note - Progress Note Date of Service: 07/22/17 SOAP: Subjective: Pt seen and examined. Overnight events noted. Some dizziness. Pt sitting on bedpan when I arrived. Loose black stool. NGT without output (clogged?) No nausea, but dry heaves when he was hypotensive earlier. Positive flatus. Objective: af vss UO good NGT min bloody output I/O even over 48 hrs a and o x3, nad lungs clear at apices abdo: soft/ ND/ NT normoactive BS no calf tenderness Labs noted Assessment: POD 11 ex lap SB resection x2, [id number] ileus, but with GI bleed. It is not clear if it is from anastomosis vs upper GI Plan: CT scan today to r/o persistent gastric distension and /or intraperitoneal bleed. and/or SBO TPN abx serial labs EGD tomorrow
[2017-07-22] MEDS ORDERED: Iohexol 300* (CONTRAST) 10 ML SDV IV ONE (12:10)
--- NOTE | 2017-07-22 13:14 | RAD ---
CLINICAL HISTORY: Small bowel obstruction, pneumatosis COMPARISON: July 19, 2017 TECHNIQUE: Multiple contiguous axial CT scans were obtained of the abdomen and pelvis after the administration of intravenous contrast. Coronal and sagittal multiplanar reformations are submitted for review. Oral contrast was administered. Delayed images were obtained through the abdomen and pelvis. FINDINGS: LUNG BASES: Again noted is nodularity of the right lower lobe LIVER: The liver is normal in shape, size, contour, and attenuation. BILE DUCTS: A biliary stent is noted. There is dilatation of the common duct. GALLBLADDER: The gallbladder is normal, without pericholecystic inflammatory change. PANCREAS: Again noted is cystic low-attenuation lesion of the tail of pancreas, stable. SPLEEN: Normal in size and appearance. UPPER GI TRACT: Evaluation of the gastrointestinal tract is limited by incomplete gastric distention. A gastric tube is noted. Oral contrast reaches of the jejunum. The pneumatosis noted along the lesser curvature on the previous examination is no longer evident. SMALL BOWEL AND MESENTERY: There is post surgical change to the small bowel. There is mild distention without dilatation. Again noted are multiple mesenteric implants. COLON: The colon is relatively featureless and is filled with liquid stool. ADRENALS: Normal bilaterally. KIDNEYS: Again noted is soft tissue mass of lower pole of left kidney.. There is no hydronephrosis or nephrolithiasis. BLADDER: The bladder is smooth in contour. PELVIC ORGANS: The prostate gland is normal. The seminal vesicles are symmetric. AORTA: The aorta is normal. IVC: Unremarkable LYMPH NODES: Again noted is right iliac lymphadenopathy. ABDOMINAL WALL: Again noted are multiple peritoneal and anterior abdominal wall implants. There is post surgical change to the anterior abdominal wall. BONES AND SOFT TISSUES: Degenerative changes are noted. OTHER: There is a small amount of ascites IMPRESSION: 1. MILD SMALL BOWEL DISTENTION WITHOUT DILATATION. 2. THE PNEUMATOSIS OF THE LESSER CURVATURE IS NO NO LONGER EVIDENT. 3. AGAIN NOTED IS ABDOMINAL AND PELVIC METASTATIC DISEASE PREVIOUSLY DESCRIBED.
[2017-07-22 14:13] LABS: Comments Flag Yes; Hematocrit 17 % (42-52)
[2017-07-22 14:15] LABS: Hemoglobin 5.8 g/dl (14.0-18.0)
--- NOTE | 2017-07-22 16:22 | PN ---
Critical Care Services: Back in ICU for hypotension and (slow) GI bleeding. Last Hb = 5.8 (down from 6.7 this AM, after one unit packed RBCs). Has melenotic stools and black NG drainage. Vital Signs: Temp Pulse Resp BP SpO2 FiO2 100.1 F 88 19 126/71 100 Physical Exam: Gen: Awake and appears comfortable Abdomen: Not distended. Has tenderness over lower abdomen, but no involuntary guarding. Extremities: Warm. Fluid Balance (Past 24 Hours): 07/22/17 06:59 Intake Total 3998.4 Output Total 2140 Balance +1858.4 Weight Intake: IV Fluids 1363.4 ABX 246 NS (0.9%) 814.4 packed RBC 303 IVPB NS (0.9%) packed RBC TPN/PPN 2332 Oral 0 Packed Cells 303 Output: NG Tube Drainage Amount 150 Urine 1990 Liquid Stool Other: Date of Last Bowel Movement # Bowel Movements Labs: 07/22/17 07/22/17 07/22/17 05:25 05:30 05:30 WBC 16.4 H RBC 2.34 L Hgb 6.7 Hct 20 MCV 85 MCH 29 MCHC 34 RDW 17 H Plt Count 543 INR 1.18 Sodium 131 L Potassium 4.2 Chloride 105 Carbon Dioxide 22 BUN 22 Creatinine 0.88 Glucose 263 H POC Glucose (mg/dL) 296 H Lactic Acid 1.4 07/22/17 14:00 Hgb 5.8 Hct 17 Studies: CT scan of abdomen: Gastric dilatation much less pronounced. Nutrition: TPN Impression: Slow but steady GI blood loss - possible sources include anastomotic site, PUD, or metastatic lesions. Plan: 1. EGD tomorrow to r/o a bleeding source in the stomach. 2. Will transfuse with packed RBCs to keep Hb > 7 g/dL. 3. I have asked the patient about end-of-life decisions (DNR), and he will speak to his family this evening about this. If GI blood loss is persistent, palliative care seems a reasonable option.
[2017-07-22] MEDS: POTASSIUM CHLORIDE TPN CENT\\PICC SCH ×12 (17:31)
[2017-07-22] MEDS: TPN CENT\\PICC SCH ×12 (17:31)
[2017-07-22] MEDS: SODIUM CHLORIDE CENT\\PICC SCH ×12 (17:31)
[2017-07-22] MEDS: [UNRECOGNIZED DRUG - OTHER] CENT\\PICC SCH ×12 (17:31)
[2017-07-22] MEDS: Mometasone 220 MCG MDI INH SCH (19:44)
[2017-07-22] MEDS ORDERED: Pantoprazole IV* 80 MG in NS 0.9% 250 ML* 250 ML IVPB SCH (22:00)
[2017-07-23] MEDS: Insulin LISPRO* 1 UNITS UNIT SUBCUT SCH ×4 (01:03→18:34)
[2017-07-23 01:20] LABS: Hematocrit 21 % (42-52); Hemoglobin 6.7 g/dl (14.0-18.0)
[2017-07-23 01:31] LABS: Comments Flag Yes
[2017-07-23] MEDS: Meropenem 1 GM PREMIX(*) 1 GM/50 ML BAG IV SCH ×3 (01:58→18:33)
--- NOTE | 2017-07-23 08:03 | RAD ---
HISTORY: GI bleed, bloody stool, anemia COMPARISON: CT of the abdomen and pelvis dated July 22, 2017 TECHNIQUE: A tagged red blood cell scan was performed with dynamic planar imaging over the course of 120 minutes. DOSE: Technetium 99m tagged red cells, 18.52 mCi administered at 5:15 AM on July 23, 2017 FINDINGS: Physiologic vascular, renal, hepatic and splenic uptake is noted. There is normal renal excretion. There is no abnormal uptake attributable to the gastrointestinal tract. IMPRESSION: NO ABNORMAL UPTAKE ATTRIBUTABLE TO THE GI TRACT.
[2017-07-23] MEDS: Heparin VIAL(*) 5000 UNITS/ML VIAL (FIVE THOUSAND) SUBCUT SCH ×3 (08:08→21:40)
[2017-07-23 09:20] LABS: Hematocrit 26 % (42-52); Hemoglobin 8.9 g/dl (14.0-18.0); Mean Corpuscular HGB Conc 35 g/dl (31-36); Mean Corpuscular Hemoglobin 31 pg (27-31); Mean Corpuscular Volume 88 fL (80-94); Mean Platelet Volume 8 um3 (7.4-10.4); Red Blood Count 2.93 10^6/ul (4.0-5.4); Red Cell Distribution Width 17 % (10.5-15); White Blood Count 14.5 10^3/ul (3.5-10.8)
[2017-07-23] MEDS: Metoclopramide IV* 5 MG/ML 2 ML VIAL IV SCH (09:33)
--- NOTE | 2017-07-23 10:28 | RAD ---
INDICATION: Fever COMPARISON: Chest x-ray July 11, 2017; CT abdomen and pelvis July 22, 2017 TECHNIQUE: An AP portable view obtained at 1002 hours is submitted. FINDINGS: Bones/Soft Tissues: There are no acute bony findings. There is nasogastric tube projected over the body of the stomach Cardiomediastinal: The cardiomediastinal silhouette is normal. Lungs: There is a right lower lobe mass documented on previous imaging and appearing unchanged. The remaining lung mead are clear. Pleura: There are no pleural effusions. Other: None IMPRESSION: NO INTERVAL CHANGES. RIGHT LOWER LOBE MASS.
--- NOTE | 2017-07-23 10:37 | PN ---
Progress Note - Progress Note Date of Service: 07/23/17 SOAP: Subjective: []Low blood pressure overnight. Better this am. NGT with red drainage. Has frequent BM, maroon color. Pain controlled, no fevers. Albuterol (Ventolin Hfa Inhaler*) 1 puff INH TID PRN PRN Reason: SOB/WHEEZING Dextrose (D50w Syringe 50 Ml*) 12.5 gm IV PUSH .FOR FS < 60 - SS PRN PRN Reason: FS < 60 Heparin Sodium (Porcine) (Heparin Vial(*)) 5,000 units SUBCUT Q8HR [facility] Last Admin: 07/23/17 08:08 Dose: Not Given Meropenem (Merrem 1 Gm Premix(*)) 1 gm in 50 mls @ 100 mls/hr IV Q8H [facility] Last Admin: 07/23/17 01:58 Dose: 100 mls/hr Sodium Chloride 100 meq/Potassium Chloride 70 meq/Potassium Phosphate 30 mmole/ Calcium Gluconate 10 meq/Magnesium Sulfate 40 meq/Multivitamins 10 ml/ Trace Metals 1 ml/ Insulin Human Regular 12 units/ Dextrose 1, 000 ml/ Amino Acids 1, 000 ml/Fat Emulsion Intravenous 250 ml/ Nutrition (Parenteral) 2,362.4772 mls @ 97.676 mls/hr CENT\PICC 1700 [facility] Stop: 07/24/17 16:59 Last Admin: 07/22/17 17:31 Dose: 97.676 mls/hr Insulin Human Lispro (Humalog*) 0 units SUBCUT Q6HR [facility] PRN Reason: Protocol Last Admin: 07/23/17 08:08 Dose: Not Given Metoclopramide HCl (Reglan Iv*) 10 mg IV TID [facility] Last Admin: 07/23/17 09:33 Dose: 10 mg Mometasone Furoate (Asmanex 220 Mcg Mdi *) 1 puff INH QPM [facility] Last Admin: 07/22/17 19:44 Dose: 1 puff Ondansetron HCl (Zofran Inj*) 4 mg IV Q6H PRN PRN Reason: NAUSEA Last Admin: 07/19/17 03:19 Dose: 4 mg Objective: [] Vital Signs Temp Pulse Resp BP Pulse Ox 99.3 F 108 18 113/73 98 07/23/17 08:00 07/23/17 08:01 07/23/17 08:01 07/23/17 08:00 07/23/17 08:01 HEENT - Pale, no thrush, NGT bloody drainage. ABD - + BS, mild distension, not tender to mild palpation. BM - maroon stool, bloody Neuro - Working on email in room, baseline Assessment: []67 year old with metastatic melanoma status post surgery for intussusception. Two areas of bowl removed, multiple disease deposits sited. Post operative course complicated by gastroparesis and re-placement NGT. Then, over weekend fever, hyptension and onset of acute GIB. Hgb dropped and s/p 3 U PRBC yesterday with appropriate increase in counts. Repeat CT scan with decompression of stomach. Plan: []1. Hyptension. Likely second at acute blood loss and GIB, differential also includes infection and sepsis. - EGD today - Fluid for decreased BP - Check CBC at 4 pm and transfuse for HGB < 7.6 2. ID. Continue Meropenen, UA and CXR repeated today. DDx spepsis is urine, aspiration, GI source. 3. FEN. Continue TPN and adjust per lab. TPN panel pending. Will increase insulin to 24 U per bag. 4. Melanoma. CT scan with slight progression in 2 lesions from May, lesion seems slightly smaller. The question is if he can survive this event and be a candidate for additional therapy. Discussed at length and I do not know. If he has GIB and that heals, he has good bowl function and can recover. However, a best case scenario may be recovery from this event to functional QOL and then hospice. We are in contact with Dr. Biggs at [place]. 5. Code status. Will be DNR/DNI but continue full supportive care, including resuscitation in setting of acute bleed short of CPR. time with patient and chart 50 min.
[2017-07-23] MEDS: Pantoprazole IV* 40 MG IV SCH (11:22)
[2017-07-23 11:41] LABS: Albumin 1.8 g/dL (3.2-5.2); BUN/Creatinine Ratio 43.7 (8-20); Calcium 7.2 mg/dL (8.6-10.3); EGFR African American 143.2 (>60); EGFR Non-African American 111.3 (>60); Globulin 2.7 g/dL (2-4); Magnesium 2.2 mg/dL (1.9-2.7); Phosphorus 2.1 mg/dL (2.5-5.0); Potassium 4.7 mmol/L (3.5-5.0); Total Bilirubin 0.4 mg/dL (0.2-1.0); Total Protein 4.5 g/dL (6.4-8.9)
[2017-07-23 12:45] LABS: Urine Bilirubin Negative (Negative); Urine Glucose 3+(>=500 mg/dL) (Negative); Urine Nitrite Negative (Negative)
--- NOTE | 2017-07-23 12:54 | PN ---
Progress Note - Progress Note Date of Service: 07/23/17 Note: CRITICAL CARE MEDICINE Date: 07/23/17 Time: 1300 SUBJECTIVE: Patient seen and examined. PHYSICAL EXAM: Vital Signs: Reviewed. Neurologic: awke, comm HEENT: pupils equal. Sclera anicteric. Trachea midline. Cardiovascular: S1 S2 Respiratory: clear Abdomen: Soft, nt. No r/g/r. ngt Extremities: Warm. LABS: Reviewed. IMAGING: Reviewed. MEDICATIONS: Reviewed. ASSESSMENT: 67 M Metastatic melanoma GIB Anemia of acute blood loss SBO/intussuception s/p ex lap malnutrition mod degree PLAN: Neurologic: tolerating Cardiovascular: Perfusing, bp declined with inc HR last night responsive to fluids. better equilibrated now but colloid depletion. Respiratory: tolerating. cxr clear Gastrointestinal: ngt. gi for egd today. ppi bid. tpn Renal/Metabolic: bun up some post bleed; cr holding Infectious Disease: on meropenum with questionable translocation. no specific source Hematology: if requiring further blood can f/u inr for any factor needs. Endocrine: reactive hyperglycemia. ssi for now and care with insulin in tpn bag. Musculoskeletal: oob as able Psych/Social: pt in adequate spirits. dnr. Supportive and preventative care as ordered. SUP: on ppi VTE prophylaxis: heparin Disposition: ICU care Code Status: DNR Critical Care Time: 35min Jj Dobbs DO
[2017-07-23] MEDS ORDERED: Meperidine SYRINGE* 50 MG/ML ONE (15:26)
[2017-07-23] MEDS ORDERED: Midazolam* 1 MG/ML 10 ML VIAL (10 MG) ONE (15:27)
[2017-07-23] MEDS ORDERED: [UNRECOGNIZED DRUG - OTHER] CENT\\PICC SCH ×12 (17:00)
[2017-07-23] MEDS ORDERED: SODIUM CHLORIDE CENT\\PICC SCH ×12 (17:00)
[2017-07-23] MEDS ORDERED: POTASSIUM CHLORIDE TPN CENT\\PICC SCH ×12 (17:00)
[2017-07-23] MEDS ORDERED: TPN CENT\\PICC SCH ×12 (17:00)
[2017-07-23 17:03] LABS: Hematocrit 22 % (42-52); Hemoglobin 7.7 g/dl (14.0-18.0); Mean Corpuscular HGB Conc 35 g/dl (31-36); Mean Corpuscular Hemoglobin 30 pg (27-31); Mean Corpuscular Volume 88 fL (80-94); Mean Platelet Volume 8 um3 (7.4-10.4); Red Blood Count 2.52 10^6/ul (4.0-5.4); Red Cell Distribution Width 17 % (10.5-15); White Blood Count 12.4 10^3/ul (3.5-10.8)
[2017-07-23] MEDS: Mometasone 220 MCG MDI INH SCH (19:47)
--- NOTE | 2017-07-23 23:35 | CONS ---
CC: Dr. Archibald * CONSULTATION REPORT: DATE OF CONSULTATION: 07/23/17 REQUESTING PHYSICIAN: Miguel Andrade MD. INDICATION: Upper GI bleed. NARRATIVE: Mr. Rubalcava is a very pleasant 67-year-old gentleman with a history of metastatic melanoma. He was admitted to the hospital with a small bowel obstruction and recently underwent exploratory laparotomy. He recently underwent lysis of adhesions and small bowel resection to surgically correct the small bowel obstruction. He has had a slow upper GI bleed and over the weekend it seemed to picker/puller in pace. He is now being considered for an EGD to evaluate for his potential upper GI bleed, trying to determine whether or not the bleed could be coming from metastatic implants versus some other GI cause. PAST MEDICAL HISTORY: Significant for: 1. Melanoma. 2. Hypertension. 3. Asthma. 4. Hyperlipidemia. PAST SURGICAL HISTORY: Includes: 1. Small bowel resection. 2. Shannan fundoplication. 3. Biliary stent. 4. Tonsillectomy. 5. Appendectomy. MEDICATIONS AT HOME: 1. Tramadol. 2. Flomax. 3. Potassium. 4. Singulair. 5. Nasonex. 6. Magnesium. 7. Flovent. 8. Fexofenadine. 9. Albuterol. 10. Tylenol. ALLERGIES: PENICILLIN, ATROPINE, DEXTROMETHORPHAN, HYDROCODONE, and TUSSIN. FAMILY HISTORY: Coronary artery disease. SOCIAL HISTORY: Denies any tobacco or alcohol. REVIEW OF SYSTEMS: Twelve systems were reviewed, other than that mentioned in the HPI were unremarkable. PHYSICAL EXAMINATION: Temperature is 99.1, blood pressure is 122/73, pulse is 114. General: Well appearing male, lying flat in bed. Has an NG tube in placed. Appears comfortable. HEENT: Mucous membranes are moist. NG tube in place. Heart: Regular rate and rhythm. Lungs: Clear to auscultation. Abdomen : Softly distended. No rebound. No guarding. No masses. He does have surgical scars that are healing well. Skin is warm and dry. DIAGNOSTIC STUDIES/LABORATORY DATA: Labs of note, white count is 12.4, hemoglobin is 7.7, platelets of 316. BUN is 31, creatinine is 0.71. ASSESSMENT AND PLAN: This is a 67-year-old gentleman, likely is experiencing an upper GI bleed. He does need EGD, I will make arrangements for his EGD this afternoon. We will be evaluating for potential metastatic implants versus peptic ulcer disease, erosive esophagitis and/or any other cause of his upper GI bleed. [id number]/[facility] #: [id number] [facility]
[2017-07-24] MEDS: Insulin LISPRO* 1 UNITS UNIT SUBCUT SCH ×4 (00:50→18:29)
[2017-07-24] MEDS: Meropenem 1 GM PREMIX(*) 1 GM/50 ML BAG IV SCH ×3 (02:18→18:29)
[2017-07-24] MEDS: Heparin VIAL(*) 5000 UNITS/ML VIAL (FIVE THOUSAND) SUBCUT SCH ×3 (05:50→21:34)
[2017-07-24 06:10] LABS: Hematocrit 20 % (42-52); Mean Corpuscular HGB Conc 34 g/dl (31-36); Mean Corpuscular Hemoglobin 31 pg (27-31); Mean Corpuscular Volume 90 fL (80-94); Mean Platelet Volume 8 um3 (7.4-10.4); Red Blood Count 2.22 10^6/ul (4.0-5.4); Red Cell Distribution Width 17 % (10.5-15); White Blood Count 8.9 10^3/ul (3.5-10.8)
[2017-07-24 06:12] LABS: Comments Flag Yes
[2017-07-24 06:13] LABS: Hemoglobin 6.8 g/dl (14.0-18.0)
[2017-07-24 06:25] LABS: Albumin 1.9 g/dL (3.2-5.2); Calcium 7.6 mg/dL (8.6-10.3); EGFR African American 173.9 (>60); EGFR Non-African American 135.2 (>60); Globulin 2.5 g/dL (2-4); Phosphorus 2.1 mg/dL (2.5-5.0); Potassium 4.1 mmol/L (3.5-5.0); Total Bilirubin 0.3 mg/dL (0.2-1.0); Total Protein 4.4 g/dL (6.4-8.9)
--- NOTE | 2017-07-24 10:28 | PRO ---
CC: Dr. Andrade; DANILO Sanders; Dr. Archibald * DATE OF PROCEDURE: 07/23/17 - ROOM #ICU-04 REFERRING PHYSICIAN: Miguel Andrade MD PROCEDURE: EGD. INDICATION: Upper GI bleed, melena. MEDICATIONS GIVEN: 25 mg IV Demerol, 2.5 mg IV Versed. DESCRIPTION OF PROCEDURE: After the EGD procedure including the risks, benefits and alternatives not limited to perforation, surgery and/or were explained to Mr. Rubalcava, written consent was then obtained, IV medication was given, and a bite block was placed between the teeth. An Olympus gastroscope was then inserted into the patient's mouth, advanced down the esophagus, into the stomach, and into the duodenal bulb. In the esophagus, the mucosa appeared normal. He does have an NG tube in place. The scope was advanced through the GE junction into the body of the stomach. Retroflex view revealed a very large clot that I did spend at least 20 to 25 minutes trying to evacuate. I could make it much smaller, but I could not get it completely nonexistent. I was able to move the patient around a little bit and see underneath. There is no active bleeding seen from anywhere in the stomach. The body of the stomach appeared normal. The mucosa appeared normal except there were 3 black nodules, 2 in the upper portion of the body, 1 in the mid portion of the body that at first I thought were potentially ulcers with clots on them. I did blast all 3 of them with a water jet and then tried to suction the clots off and nothing came off. Thus, I now think that most likely they are metastatic implants. I did pass the scope through the pylorus into the very proximal duodenal bulb. No active bleeding was seen. There was a slight amount of bile. The scope was then withdrawn from the patient. He tolerated the procedure well and was returned to the care of the ICU staff. IMPRESSION: 1. Complete upper endoscopy into the duodenum. 2. Likely metastatic implants, patient is most likely bleeding/oozing from those. 3. No active ulcers or active bleeding was seen. We will continue to follow along. We could potentially consider another EGD in 1 to 2 weeks from now if biopsies need to be obtained after the patient's bleeding has ceased. [id number]/[facility] #: [id number] [facility]
[2017-07-24] MEDS: Pantoprazole IV* 40 MG IV SCH (13:50)
--- NOTE | 2017-07-24 16:06 | PN ---
Progress Note - Progress Note Date of Service: 07/24/17 SOAP: Subjective: Pt sen ans examined. Chart reviewed. Case d/w oncology and Gi yesterday. Pt has minimal abdo pain. Positve flatus, loose, black to red BMs He has received multiple transfusions Objective: af vss Uo good abdo: soft/ ND/NT normoactive BS Labs noted Assessment: POD13 ex lap, SB resection x2; hypotensive, ?blood loos, GI bleed vs sepsis/SIRS - likely a combination. I don't believe he is bleeding from anastomoses, but rather addition melanocytic lesions Plan: Possibly d/c NGT PPI Abx will follow
[2017-07-24] MEDS ORDERED: Morphine INJ* 2 MG/ML 1 ML CARPUJECT IV PRN (16:15)
[2017-07-24] MEDS: TPN CENT\\PICC SCH ×12 (17:17)
[2017-07-24] MEDS: [UNRECOGNIZED DRUG - OTHER] CENT\\PICC SCH ×12 (17:17)
[2017-07-24] MEDS: POTASSIUM CHLORIDE TPN CENT\\PICC SCH ×12 (17:17)
[2017-07-24] MEDS: SODIUM CHLORIDE CENT\\PICC SCH ×12 (17:17)
[2017-07-24 17:26] LABS: Hematocrit 23 % (42-52)
[2017-07-24] MEDS: Mometasone 220 MCG MDI INH SCH (20:24)
[2017-07-24] MEDS: Ondansetron INJ* 2 MG/ML VIAL IV PRN (23:27)
[2017-07-25 00:25] LABS: Hematocrit 21 % (42-52); Hemoglobin 7.3 g/dl (14.0-18.0); Mean Corpuscular HGB Conc 35 g/dl (31-36); Mean Corpuscular Hemoglobin 31 pg (27-31); Mean Corpuscular Volume 90 fL (80-94); Mean Platelet Volume 8 um3 (7.4-10.4); Red Blood Count 2.33 10^6/ul (4.0-5.4); Red Cell Distribution Width 16 % (10.5-15); White Blood Count 10.6 10^3/ul (3.5-10.8)
[2017-07-25] MEDS: Insulin LISPRO* 1 UNITS UNIT SUBCUT SCH ×5 (00:43→23:49)
[2017-07-25 02:31] LABS: Hematocrit 18 % (42-52); Mean Corpuscular HGB Conc 34 g/dl (31-36); Mean Corpuscular Hemoglobin 31 pg (27-31); Mean Corpuscular Volume 91 fL (80-94); Mean Platelet Volume 8 um3 (7.4-10.4); Red Blood Count 2.03 10^6/ul (4.0-5.4); Red Cell Distribution Width 16 % (10.5-15); White Blood Count 9.6 10^3/ul (3.5-10.8)
[2017-07-25 02:32] LABS: Comments Flag Yes
[2017-07-25 02:37] LABS: Hemoglobin 6.2 g/dl (14.0-18.0)
[2017-07-25] MEDS: Meropenem 1 GM PREMIX(*) 1 GM/50 ML BAG IV SCH ×3 (02:45→19:02)
[2017-07-25] MEDS: Heparin VIAL(*) 5000 UNITS/ML VIAL (FIVE THOUSAND) SUBCUT SCH (06:30)
[2017-07-25 06:47] LABS: Hematocrit 20 % (42-52); Mean Corpuscular HGB Conc 34 g/dl (31-36); Mean Corpuscular Hemoglobin 31 pg (27-31); Mean Corpuscular Volume 91 fL (80-94); Mean Platelet Volume 8 um3 (7.4-10.4); Red Blood Count 2.23 10^6/ul (4.0-5.4); Red Cell Distribution Width 16 % (10.5-15); White Blood Count 8.6 10^3/ul (3.5-10.8)
[2017-07-25 06:54] LABS: Add Diff/Slide Review? Slide Review Added; Comments Flag Yes
[2017-07-25 06:58] LABS: BUN/Creatinine Ratio 34.5 (8-20); Blood Urea Nitrogen 19 mg/dL (6-24); CO2 Carbon Dioxide 26 mmol/L (22-32); Calcium 7.2 mg/dL (8.6-10.3); Chloride 109 mmol/L (101-111); EGFR African American 192.3 (>60); EGFR Non-African American 149.5 (>60); Glucose 212 mg/dL (70-100); Potassium 4.7 mmol/L (3.5-5.0); Sodium 135 mmol/L (133-145)
[2017-07-25] MEDS: Pantoprazole IV* 40 MG IV SCH (09:51)
[2017-07-25] MEDS ORDERED: Phytonadione INJ (Adult)* 3 MG in NS 0.9% 50 ML* 50 ML IV ONE (11:11)
--- NOTE | 2017-07-25 11:19 | PN ---
Progress Note - Progress Note Date of Service: 07/25/17 SOAP: Subjective: got hypotensive over night again. now having bright red blood coming from tube. got another transfusion early this am. Objective: Vital Signs Temp Pulse Resp BP Pulse Ox 99.9 F 80 14 109/60 99 07/25/17 09:33 07/25/17 11:01 07/25/17 11:01 07/25/17 11:00 07/25/17 11:01 lying flat in nad perr eomi ngt with bright red drainage soft, diffuse ttp throughout, mass right of umbilicus s1 s2 nl CTA bl no le edema A+O x 3 Laboratory Results - last 24 hr 07/22/17 07/24/17 07/24/17 14:00 13:40 17:15 WBC RBC Hgb 8.0 L Hct 23 L MCV MCH MCHC RDW Plt Count MPV Neut % (Auto) Lymph % (Auto) [place] % (Auto) Eos % (Auto) Baso % (Auto) Absolute Neuts (auto) Absolute Lymphs (auto) Absolute Monos (auto) Absolute Eos (auto) Absolute Basos (auto) Absolute Nucleated RBC Nucleated RBC % Sodium Potassium Chloride Carbon Dioxide BUN Creatinine Est GFR ( Amer) Est GFR (Non-Af Amer) BUN/Creatinine Ratio Glucose POC Glucose (mg/dL) 248 H Calcium Blood Type O Positive Antibody Screen Negative Crossmatch See Detail 07/24/17 07/24/17 07/24/17 18:08 23:38 23:50 WBC 10.6 RBC 2.33 L Hgb 7.3 L Hct 21 L MCV 90 MCH 31 MCHC 35 RDW 16 H Plt Count 349 MPV 8 Neut % (Auto) 63.1 Lymph % (Auto) 22.8 L [place] % (Auto) 9.7 H Eos % (Auto) 3.5 Baso % (Auto) 0.9 Absolute Neuts (auto) 6.7 Absolute Lymphs (auto) 2.4 Absolute Monos (auto) 1.0 H Absolute Eos (auto) 0.4 Absolute Basos (auto) 0.1 Absolute Nucleated RBC 0.02 Nucleated RBC % 0.2 Sodium Potassium Chloride Carbon Dioxide BUN Creatinine Est GFR ( Amer) Est GFR (Non-Af Amer) BUN/Creatinine Ratio Glucose POC Glucose (mg/dL) 194 H 198 H Calcium Blood Type Antibody Screen Crossmatch 07/25/17 07/25/17 07/25/17 02:10 06:00 06:15 WBC 9.6 RBC 2.03 L Hgb 6.2 L* Hct 18 L MCV 91 MCH 31 MCHC 34 RDW 16 H Plt Count 310 MPV 8 Neut % (Auto) 72.4 Lymph % (Auto) 14.0 L [place] % (Auto) 9.8 H Eos % (Auto) 3.0 Baso % (Auto) 0.8 Absolute Neuts (auto) 6.9 Absolute Lymphs (auto) 1.3 Absolute Monos (auto) 0.9 H Absolute Eos (auto) 0.3 Absolute Basos (auto) 0.1 Absolute Nucleated RBC 0.01 Nucleated RBC % 0.1 Sodium 135 Potassium 4.7 Chloride 109 Carbon Dioxide 26 BUN 19 Creatinine 0.55 L Est GFR ( Amer) 192.3 Est GFR (Non-Af Amer) 149.5 BUN/Creatinine Ratio 34.5 H Glucose 212 H POC Glucose (mg/dL) 253 H Calcium 7.2 L Blood Type Antibody Screen Crossmatch 07/25/17 06:15 WBC 8.6 RBC 2.23 L Hgb 7.0 L Hct 20 L MCV 91 MCH 31 MCHC 34 RDW 16 H Plt Count 283 MPV 8 Neut % (Auto) 71.8 Lymph % (Auto) 16.4 L [place] % (Auto) 8.8 Eos % (Auto) 2.3 Baso % (Auto) 0.7 Absolute Neuts (auto) 6.2 Absolute Lymphs (auto) 1.4 Absolute Monos (auto) 0.7 Absolute Eos (auto) 0.2 Absolute Basos (auto) 0.1 Absolute Nucleated RBC 0.02 Nucleated RBC % 0.2 Sodium Potassium Chloride Carbon Dioxide BUN Creatinine Est GFR ( Amer) Est GFR (Non-Af Amer) BUN/Creatinine Ratio Glucose POC Glucose (mg/dL) Calcium Blood Type Antibody Screen Crossmatch Albuterol (Ventolin Hfa Inhaler*) 1 puff INH TID PRN PRN Reason: SOB/WHEEZING Dextrose (D50w Syringe 50 Ml*) 12.5 gm IV PUSH .FOR FS < 60 - SS PRN PRN Reason: FS < 60 Heparin Sodium (Porcine) (Heparin Vial(*)) 5,000 units SUBCUT Q8HR [facility] Last Admin: 07/25/17 06:30 Dose: 5,000 units Meropenem (Merrem 1 Gm Premix(*)) 1 gm in 50 mls @ 100 mls/hr IV Q8H [facility] Last Admin: 07/25/17 09:51 Dose: 100 mls/hr Sodium Chloride 100 meq/Potassium Chloride 70 meq/Potassium Phosphate 30 mmole/ Calcium Gluconate 10 meq/Magnesium Sulfate 20 meq/Multivitamins 10 ml/ Trace Metals 1 ml/ Insulin Human Regular 28 units/ Dextrose 1, 000 ml/ Amino Acids 1, 000 ml/Fat Emulsion Intravenous 250 ml/ Nutrition (Parenteral) 2,357.7111 mls @ 98.238 mls/hr CENT\PICC 1700 [facility] Stop: 07/27/17 16:59 Last Admin: 07/24/17 17:17 Dose: 98.238 mls/hr Phytonadione 3 mg/ Sodium (Chloride) 50.3 mls @ 100 mls/hr IV ONCE ONE Stop: 07/25/17 11:41 Insulin Human Lispro (Humalog*) 0 units SUBCUT Q6HR [facility] PRN Reason: Protocol Last Admin: 07/25/17 06:30 Dose: 6 units Mometasone Furoate (Asmanex 220 Mcg Mdi *) 1 puff INH QPM [facility] Last Admin: 07/24/17 20:24 Dose: 1 puff Morphine Sulfate (Morphine Inj (Syringe)*) 2 mg IV Q3H PRN PRN Reason: PAIN Ondansetron HCl (Zofran Inj*) 4 mg IV Q6H PRN PRN Reason: NAUSEA Last Admin: 07/24/17 23:27 Dose: 4 mg Pantoprazole Sodium (Protonix Iv*) 40 mg IV Q24H [facility] Last Admin: 07/25/17 09:51 Dose: 40 mg Assessment: 67 yo M w metastatic melanoma sp surgerical repair of a small bowel intussusseption with course complicated by overt GI bleed felt 2/2 metastatic implants, as well as fevers likely from bowel translocation. I discussed with Fabrizio at length that we are very likely proceeding towards hospice given his active ongoing bleeding from his metastatic implants that will not realistically respond quickly to any palliative therapies and our inability to keep up with his transfusion needs. We will give him vitamin K today and one more day of observation but if continued bleeding will get a hospice consult tomorrow. Realistically I am not sure that he will make it home. Plan: -hold heparin sc -vitamin K IV today -cont tpn for now -discussed with Dr. Andrade who felt NGT could be removed today, will do so in a move towards palliation -keep in ICU today -DNR
[2017-07-25] MEDS: POTASSIUM CHLORIDE TPN CENT\\PICC SCH ×12 (17:09)
[2017-07-25] MEDS: TPN CENT\\PICC SCH ×12 (17:09)
[2017-07-25] MEDS: [UNRECOGNIZED DRUG - OTHER] CENT\\PICC SCH ×12 (17:09)
[2017-07-25] MEDS: SODIUM CHLORIDE CENT\\PICC SCH ×12 (17:09)
[2017-07-25] MEDS: Mometasone 220 MCG MDI INH SCH (20:46)
[2017-07-26] MEDS: Meropenem 1 GM PREMIX(*) 1 GM/50 ML BAG IV SCH ×2 (02:15→11:18)
[2017-07-26] MEDS: Insulin LISPRO* 1 UNITS UNIT SUBCUT SCH ×2 (06:18→12:27)
--- NOTE | 2017-07-26 10:18 | PN ---
Progress Note - Progress Note Date of Service: 07/26/17 SOAP: Subjective: []Comfortable.Feels bleeding has slowed down. NGT out but not hungry. No pain. Cannot go home. Interested in hospice residence, staying in hospital Albuterol (Ventolin Hfa Inhaler*) 1 puff INH TID PRN PRN Reason: SOB/WHEEZING Dextrose (D50w Syringe 50 Ml*) 12.5 gm IV PUSH .FOR FS < 60 - SS PRN PRN Reason: FS < 60 Meropenem (Merrem 1 Gm Premix(*)) 1 gm in 50 mls @ 100 mls/hr IV Q8H [facility] Last Admin: 07/26/17 02:15 Dose: 100 mls/hr Sodium Chloride 100 meq/Potassium Chloride 70 meq/Potassium Phosphate 30 mmole/ Calcium Gluconate 10 meq/Magnesium Sulfate 20 meq/Multivitamins 10 ml/ Trace Metals 1 ml/ Insulin Human Regular 28 units/ Dextrose 1, 000 ml/ Amino Acids 1, 000 ml/Fat Emulsion Intravenous 250 ml/ Nutrition (Parenteral) 2,357.7111 mls @ 98.238 mls/hr CENT\PICC 1700 [facility] Stop: 07/27/17 16:59 Last Admin: 07/25/17 17:09 Dose: 98.238 mls/hr Insulin Human Lispro (Humalog*) 0 units SUBCUT Q6HR [facility] PRN Reason: Protocol Last Admin: 07/26/17 06:18 Dose: 4 units Mometasone Furoate (Asmanex 220 Mcg Mdi *) 1 puff INH QPM [facility] Last Admin: 07/25/17 20:46 Dose: 1 puff Morphine Sulfate (Morphine Inj (Syringe)*) 2 mg IV Q3H PRN PRN Reason: PAIN Ondansetron HCl (Zofran Inj*) 4 mg IV Q6H PRN PRN Reason: NAUSEA Last Admin: 07/24/17 23:27 Dose: 4 mg Pantoprazole Sodium (Protonix Iv*) 40 mg IV Q24H [facility] Last Admin: 07/25/17 09:51 Dose: 40 mg Objective: [] Vital Signs Temp Pulse Resp BP Pulse Ox 98.7 F 73 23 109/59 100 07/26/17 08:00 07/26/17 09:45 07/26/17 09:45 07/26/17 09:45 07/26/17 09:45 HEENT - Pale, no thrush, NGT bloody drainage. ABD - + BS, mild distension, not tender to mild palpation. BM - maroon stool, bloody Neuro - Working on email in room, baseline Assessment: []67 year old with metastatic melanoma status post surgery for intussusception. Now with progressive disease and GIB from mucosal disease, likely multiple sites. Discussed end of life care. He is amenable to hospice and he will of bleeding in days to weeks. Plan: 1. Will check CBC today and transfuse to Hgb 8, then stop checking all labs 2. Stop TPN after this bag 3. Clear liquids and advance diet prn 4. consult hospice re residence or in patient. 5. Can go to floor
[2017-07-26 11:15] LABS: Hematocrit 18 % (42-52); Mean Corpuscular HGB Conc 34 g/dl (31-36); Mean Corpuscular Hemoglobin 31 pg (27-31); Mean Corpuscular Volume 92 fL (80-94); Mean Platelet Volume 8 um3 (7.4-10.4); Red Blood Count 1.95 10^6/ul (4.0-5.4); Red Cell Distribution Width 16 % (10.5-15); White Blood Count 6.4 10^3/ul (3.5-10.8)
[2017-07-26 11:16] LABS: Comments Flag Yes
[2017-07-26 11:19] LABS: Add Diff/Slide Review? Slide Review Added
[2017-07-26] MEDS: Pantoprazole IV* 40 MG IV SCH (11:29)
[2017-07-26 12:04] LABS: Basophilic Stippling 1+; Hypochromasia 1+; Polychromasia 2+
[2017-07-26 12:14] LABS: Hemoglobin 6.1 g/dl (14.0-18.0)
--- NOTE | 2017-07-26 18:33 | PN ---
Progress Note - Progress Note Date of Service: 07/26/17 SOAP: Subjective: Pt seen and examined earlier today. He is interested in hospice. No nausea. less dark BMs Objective: afebrile, normotensive abdo: soft/ ND/ minimal tenderness. staple line intact, no redness Assessment: S/p ex lap SB resection, GI bleed improving, most likely Upper GI in origin Plan: ice chips, advance as tolerated luc out tomorrow. plan per CCM, oncology I will be away for next 2 days
[2017-07-26] MEDS: Mometasone 220 MCG MDI INH SCH (20:46)
[2017-07-27] MEDS: Insulin LISPRO* 1 UNITS UNIT SUBCUT SCH ×2 (02:42→11:09)
[2017-07-27] MEDS ORDERED: Morphine INJ* 2 MG/ML 1 ML SYRINGE (TWO MG - NEW SYRINGE VERSION) IV PRN (10:04)
[2017-07-27] MEDS: TPN CENT\\PICC SCH ×12 (11:09)
[2017-07-27] MEDS: SODIUM CHLORIDE CENT\\PICC SCH ×12 (11:09)
[2017-07-27] MEDS: POTASSIUM CHLORIDE TPN CENT\\PICC SCH ×12 (11:09)
[2017-07-27] MEDS: [UNRECOGNIZED DRUG - OTHER] CENT\\PICC SCH ×12 (11:09)
[2017-07-27] MEDS: Pantoprazole IV* 40 MG IV SCH (11:44)
[2017-07-27] MEDS ORDERED: Morphine ORAL CONCENTRATE* 5 MG/0.25 ML ORAL.SYRIN SL PRN ×2 (12:34→12:35)
[2017-07-27] MEDS ORDERED: Ondansetron ODT TAB* 4 MG SL PRN (12:34)
[2017-07-27] MEDS ORDERED: Atropine 1% (ORAL/SL)* 15 ML BTL SL PRN (12:35)
--- NOTE | 2017-07-27 15:23 | CONS ---
CC: Tiburcio Archibald MD; Easton Weathers MD * PALLIATIVE CARE CONSULTATION REPORT: DATE OF CONSULT: 07/27/17 PRIMARY CARE PHYSICIAN: Tiburcio Archibald MD ONCOLOGIST: Easton Weathers MD REFERRING PHYSICIAN FOR CONSULT: Easton Weathers MD HISTORY OF PRESENT ILLNESS: This is a 67-year-old male with a past medical history of metastatic melanoma, who presented to the hospital on 07/10/17 for concern for small bowel obstruction. He had a recent small bowel obstruction in May of 2017 that was managed medically and he had a small bowel resection in January of 2016 due to his metastatic melanoma. He has been on a clinical trial through [facility], but he has been overall declining with weight loss and deconditioning over the past few weeks. The concern on this admission is small bowel obstruction secondary to possible intussusception likely secondary to metastasis requiring the need for surgery. The patient underwent surgery on 07/11/17 with an exploratory laparotomy, reduction of intussusception, resection of small bowel. The patient initially was improving; however, he had to be transferred to the intensive care unit for persistent hypotension and ongoing GI bleeding. GI became involved as there was concern that this was not bleeding secondary to his anastomosis from his surgery, but what appeared to metastatic implants that were seen on an EGD done by Dr. Mcdermott. The patient received a significant amount of blood transfusions and with continued GI bleeding with these metastatic implants, the discussion Oncology had with the patient was to proceed with palliative measures and hospice. The patient and his and sister and several family members are present in the room and they are all agreeable that he cannot maintain this and they are all agreeable with hospice. Unfortunately, the patient is not even able to sit up as he gets extremely lightheaded and dizzy. He does get some intermittent right-sided gas pain. No nausea or vomiting. No shortness of breath or chest pain. He has had limited ability to tolerate any p.o. and had some bites of Jell-O this morning, was unable to tolerate it, but he still continues to have melenic stools throughout the evening. The family would really like the patient to be at the hospice residence. His life expectancy has been predicted to be no more than a few weeks. If he continues to have ongoing bleeding, it will be less than that. Otherwise, remaining review of systems is negative. PAST MEDICAL HISTORY: 1. History of metastatic melanoma diagnosed in 2008, followed by Dr. Weathers. 2. History of GI bleed. 3. History of hypertension, off antihypertensives due to significant weight loss. 4. History of asthma. 5. Seasonal allergies. 6. Hyperlipidemia. MEDICATIONS: 1. Albuterol 1 puff inhaled t.i.d. as needed. 2. Mometasone 220 mcg 1 puff inhaled in the evening. 3. Morphine 2 mg IV q.3 hours as needed. 4. Zofran 4 mg IV q.6 hours as needed. 5. Pantoprazole 40 mg IV q.24 hours as needed. ALLERGIES: PENICILLIN, ATROPINE, DEXTROMETHORPHAN, HYDROCODONE, and PHENYLTOLOXAMINE. FAMILY HISTORY: Mother with [place], father with history of perforated bowel. SOCIAL HISTORY: The patient is living at home with his , Jodie, who is his healthcare proxy. He used to work at [employer]. No history of smoking, alcohol, or illicit drug use. MOLST form is DNR/DNI. REVIEW OF SYSTEMS: A 14-point review of systems as mentioned in the HPI, otherwise negative. PHYSICAL EXAM: Vitals: Temp 97.7, pulse rate 63, respiratory rate 18, oxygen saturation 99% on 2 L, and blood pressure 108/ . General: In no acute distress. Resting comfortably with his at the bedside. He is pale appearing. HEENT: Neck is supple. No lymphadenopathy. Head: Normocephalic. Pupils are equal and reactive, anicteric. Oropharynx: Mucous membranes are moist. Conjunctivae are pale. Cardiac: Regular rate and rhythm with soft systolic murmur heard throughout. Diminished breath sounds. No wheezing, rhonchi, or rales. Abdomen: Soft, nontender. Extremities: No clubbing, cyanosis, or edema. Neurological: Alert and oriented x3. No focal neurologic deficits. LABORATORY DATA: White count 6.4, hemoglobin 6.1, hematocrit 18, and platelets 266. Sodium 135, potassium 4.7, chloride 109, bicarb 26, BUN 19, creatinine 0.55. ASSESSMENT AND PLAN: This is a 67-year-old male with a past medical history of metastatic melanoma, who presented with recurrence of small bowel obstruction secondary to melenic implants, who now has ongoing gastrointestinal bleeding. The patient is eligible for hospice with a principal diagnosis of metastatic melanoma and gastrointestinal bleed. His prognosis is limited up to a few weeks depending on how much gastrointestinal bleeding he has. As the family is interested in the residence, we discussed discharge planning. They really do not want him to go to a jail. We discussed the possibility of sending him home with hospice and then once the bed becomes available, he can transfer to the residence. In the interim, I am going to start him on oral morphine and Zofran and atropine as needed in anticipation for potential discharge to home with hospice or to the residence. Thank you for this consultation. I will follow along with you. PATIENT TIME: Greater than 90 minutes was spent doing this consultation, more than half the time spent in direct patient contact. [id number]/[facility] #: [id number] [facility]
--- NOTE | 2017-07-27 18:12 | PN ---
Progress Note - Progress Note Date of Service: 07/27/17 Note: Surgery Progress: S: POD # 16. Doing well. Denies sig pain. O: midline abd wound healing well; no s/sx of infection. Rocky Face removed by PA student under my direct observation. Steristrips placed. A/P: s/p expl lap w/ SB rsxn x 2 r/t met melanoma; now on hospice; surgical f/u prn
[2017-07-27] MEDS: Mometasone 220 MCG MDI INH SCH (19:40)
[2017-07-28] MEDS: Pantoprazole IV* 40 MG IV SCH (12:42)
[2017-07-28] MEDS: Mometasone 220 MCG MDI INH SCH (18:30)
[2017-07-29] MEDS: Pantoprazole IV* 40 MG IV SCH (12:43)
[2017-07-29] MEDS: Mometasone 220 MCG MDI INH SCH (18:14)
[2017-07-30] MEDS: Pantoprazole IV* 40 MG IV SCH (11:44)
--- NOTE | 2017-07-30 11:47 | PN ---
Progress Note - Progress Note Date of Service: 07/30/17 SOAP: Subjective: []No pain. comfortable and family is visiting. Weak and bed bound. Albuterol (Ventolin Hfa Inhaler*) 1 puff INH TID PRN PRN Reason: SOB/WHEEZING Atropine Sulfate (Atropine 1% (Oral/Sl)*) 2 drop SL Q2H PRN PRN Reason: DISCOMFORT Dextrose (D50w Syringe 50 Ml*) 12.5 gm IV PUSH .FOR FS < 60 - SS PRN PRN Reason: FS < 60 Mometasone Furoate (Asmanex 220 Mcg Mdi *) 1 puff INH QPM [place] Last Admin: 07/29/17 18:14 Dose: 1 puff Morphine Sulfate (Morphine Inj (Syringe)*) 2 mg IV Q3H PRN PRN Reason: PAIN Morphine Sulfate (Morphine Oral Concentrate*) 4 mg SL Q2H PRN PRN Reason: PAIN Ondansetron HCl (Zofran Inj*) 4 mg IV Q6H PRN PRN Reason: NAUSEA Last Admin: 07/24/17 23:27 Dose: 4 mg Ondansetron HCl (Zofran Odt Tab*) 4 mg SL Q6H PRN PRN Reason: NAUSEA/VOMITING Pantoprazole Sodium (Protonix Iv*) 40 mg IV Q24H [place] Last Admin: 07/29/17 12:43 Dose: 40 mg Objective: [HEENT - Pale, no thrush, NGT bloody drainage. ABD - + BS, mild distension, not tender to mild palpation. BM - maroon stool, bloody Neuro - Working on email in room, baseline MS. Assessment: []67 year old with metastatic melanoma status post surgery for intussusception. Now with progressive disease and GIB from mucosal disease, likely multiple sites. He is now comfort measures only. Doing well today, no pain and is eating. GIB has slowed down. He understands goals for end o life care. Plan: 1. No changes in medication today. No labs 2. Plan in patient or Hospice Residence. 3. Continue PO as tolerate
[2017-07-30] MEDS: Mometasone 220 MCG MDI INH SCH (17:55)
--- NOTE | 2017-07-31 07:54 | PN ---
Progress Note - Progress Note Date of Service: 07/31/17 SOAP: Subjective: []no change. no pain. still weak, no bleeding he can see. eating well. comfortable Albuterol (Ventolin Hfa Inhaler*) 1 puff INH TID PRN PRN Reason: SOB/WHEEZING Atropine Sulfate (Atropine 1% (Oral/Sl)*) 2 drop SL Q2H PRN PRN Reason: DISCOMFORT Dextrose (D50w Syringe 50 Ml*) 12.5 gm IV PUSH .FOR FS < 60 - SS PRN PRN Reason: FS < 60 Mometasone Furoate (Asmanex 220 Mcg Mdi *) 1 puff INH QPM [place] Last Admin: 07/30/17 17:55 Dose: 1 puff Morphine Sulfate (Morphine Inj (Syringe)*) 2 mg IV Q3H PRN PRN Reason: PAIN Morphine Sulfate (Morphine Oral Concentrate*) 4 mg SL Q2H PRN PRN Reason: PAIN Ondansetron HCl (Zofran Inj*) 4 mg IV Q6H PRN PRN Reason: NAUSEA Last Admin: 07/24/17 23:27 Dose: 4 mg Ondansetron HCl (Zofran Odt Tab*) 4 mg SL Q6H PRN PRN Reason: NAUSEA/VOMITING Pantoprazole Sodium (Protonix Iv*) 40 mg IV Q24H [facility] Last Admin: 07/30/17 11:44 Dose: 40 mg Objective: [ Vital Signs Temp Pulse Resp BP Pulse Ox 98.0 F 67 16 113/56 98 07/31/17 03:19 07/31/17 03:19 07/31/17 03:19 07/31/17 03:19 07/31/17 03:19 Objective: [HEENT - Pale, no thrush, NGT bloody drainage. ABD - + BS, mild distension, not tender to mild palpation. BM - maroon stool, bloody Neuro - Working on email in room, baseline MS. Assessment: []67 year old with metastatic melanoma status post surgery for intussusception. Now with progressive disease and GIB from mucosal disease, likely multiple sites. He is now comfort measures only. Doing well today, no pain and is eating. GIB has slowed down. He understands goals for end o life care. Plan: 1. No changes in medication today. W 2. Plan in patient or Hospice Residence. 3. Continue PO as tolerate 4. CBC tomorrow, if stable may try getting out of bed 5. continue VS per floor protocol
[2017-07-31] MEDS: Pantoprazole IV* 40 MG IV SCH (11:30)
[2017-07-31] MEDS: Mometasone 220 MCG MDI INH SCH (20:01)
[2017-08-01 06:21] LABS: Hematocrit 22 % (42-52); Hemoglobin 7.3 g/dl (14.0-18.0); Mean Corpuscular HGB Conc 34 g/dl (31-36); Mean Corpuscular Hemoglobin 31 pg (27-31); Mean Corpuscular Volume 90 fL (80-94); Mean Platelet Volume 7 um3 (7.4-10.4); Red Blood Count 2.39 10^6/ul (4.0-5.4); Red Cell Distribution Width 15 % (10.5-15); White Blood Count 3.5 10^3/ul (3.5-10.8)
[2017-08-01] MEDS: Pantoprazole IV* 40 MG IV SCH (11:19)
[2017-08-01] MEDS: Mometasone 220 MCG MDI INH SCH (18:50)
[2017-08-02 10:13] VITALS: BP 131/66
--- NOTE | 2017-08-02 12:30 | DS ---
- Discharge Summary Admission Date: 07/10/2017 Discharge Date: 08/02/2017 Discharge Diagnosis: 1. Metastic Melanoma: End stage, d/c home on hospice 2. GI Bleed: secondary to metastatic implants, appears to have slowed, no further intervention 3.Intussusception: post op, having soft BMs, no pain/cramping Discharge Medications: 1. Acetaminophen 325 mg PO q4hrs PRN pain/fever/headache 2. Atropine 1% 2 gtt SL q2hrs PRN discomfort 3. Morphine concentrate 4 mg PO/SL q2hrs PRN pain/dyspnea 4. Ondansetron ODT 4 mg SL q6hrs PRN nausea/vomiting 5. Pantoprazole 40 mg PO qAM 6. Fluticasone 110 mcg inh BID 7. Simethicone 80 mg PO pc PRN bloating 8. Albuterol 110 mcg inh TID PRN SOB/Wheeze 9. Tums 1 tab PO TID PRN indigestion 10. Lorazpam 0.5 mg PO q4hrs PRN anxiety/agitation/insomnia Hospital Course: Please see admission note for full H&P however briefly Mr. Rubalcava is well known to our service due to his diagnosis of metastatic melanoma (initial complete resection 2007, metastatic 2013). He presented to the office on with abdominal pain and was admitted for evaluation d/t his history of prior SBO. CT obtained that day revealed SBO with a large small bowel intussusception as well as progressive disease. He was seen by Dr. Mora of surgery in consultation that evening. Due to concern for metastatic lesion causing obstruction plan was made for an exploratory laparotomy with Dr. Andrade the following day. On 07/11 laparotomy with small bowel resection occurred without difficulty and the patient was placed in the ICU post op. That evening he developed a fever and tachycardia, the hospitalist team was consulted and antibiotics were started. The following day he was transferred to the surgical unit. He continued to recover appropriately with TPN and the post op NG tube was removed by 07/17, however overnight on 07/19 Mr. Rubalcava developed hypotension and ultimately a CAT transferred him to the ICU for post op ileus. He ultimately stabilized and was transferred back to the surgical unit on 07/21. Unfortunately the following morning he again developed hypotension, had black liquid stool, and c/o chest pain. A CAT transferred him back to the ICU d/t shock and GI bleed. The following day, 07/23, consultation with GI (Dr. Mcdermott ) and subsequent EGD the following day revealed multiple oozing metastatic sites. With known progressive disease (on CT and per laparotomy visualization which was underestimated on imaging) and complicated post op course Mr. Rubalcava agreed to DNR but with medical interventions. By 07/26 the GI bleed had not resolved and decision was made to transition to comfort care. He received a final unit of PRBCs (for a total of 16 units, 11 of which occurred directly r/t GI bleed) and a palliative consult occurred with Dr. Paz. He returned to the surgical floor where plan of care was directed at safe transition to hospice services. Ultimately this occurred today on 08/02 following delivery of DMEs to the patients home. A DNR/DNI/DNH (do not hospitalize) was signed and he is being discharged home with hospice sign on this afternoon.
== END 2017-08-02 10:30 | disposition hospice, home (50) | DRG 329 ==
LOC: MED 14:19 → ICU 07-11 20:00 → SSU 07-12 12:43 → ICU 07-19 05:04 → SSU 07-21 13:55 → ICU 07-22 06:03 → SSU 07-26 13:32
PROVIDERS: ADMIT Physician Assistant Medical; ATTEND Internal Medicine Hematology & Oncology
PROC: 0DS80ZZ Reposition Small Intestine, Open Approach (ICD-10-PCS; 2017-07-11)
PROC: 0DH67UZ Insertion of Feeding Device into Stomach, Via Natural or Artificial Opening (ICD-10-PCS; 2017-07-11)
PROC: 3E0336Z Introduction of Nutritional Substance into Peripheral Vein, Percutaneous Approach (ICD-10-PCS; 2017-07-11)
PROC: 0DB80ZZ Excision of Small Intestine, Open Approach (ICD-10-PCS; principal; 2017-07-11 11:15)
PROC: 30233N1 Transfusion of Nonautologous Red Blood Cells into Peripheral Vein, Percutaneous Approach (ICD-10-PCS; 2017-07-13)
PROC: 0DP6XUZ Removal of Feeding Device from Stomach, External Approach (ICD-10-PCS; 2017-07-17)
PROC: 0D9670Z Drainage of Stomach with Drainage Device, Via Natural or Artificial Opening (ICD-10-PCS; 2017-07-19)
PROC: 0DJ08ZZ Inspection of Upper Intestinal Tract, Via Natural or Artificial Opening Endoscopic (ICD-10-PCS; 2017-07-28)
DX: K56.609 Unspecified intestinal obstruction, unspecified as to partial versus complete obstruction (principal); R57.8 Other shock; E44.0 Moderate protein-calorie malnutrition; C43.59 Malignant melanoma of other part of trunk; C78.4 Secondary malignant neoplasm of small intestine; D62 Acute posthemorrhagic anemia; K31.84 Gastroparesis; K91.840 Postprocedural hemorrhage of a digestive system organ or structure following a digestive system procedure; K56.1 Intussusception; K56.7 Ileus, unspecified; Z66 Do not resuscitate; Y92.239 Unspecified place in hospital as the place of occurrence of the external cause; Y69 Unspecified misadventure during surgical and medical care; R00.0 Tachycardia, unspecified; E78.5 Hyperlipidemia, unspecified; I10 Essential (primary) hypertension; G89.29 Other chronic pain; M54.5 Low back pain; I25.10 Atherosclerotic heart disease of native coronary artery without angina pectoris; J45.909 Unspecified asthma, uncomplicated; Z87.442 Personal history of urinary calculi; Z88.0 Allergy status to penicillin; Z88.8 Allergy status to other drugs, medicaments and biological substances; Z68.25 Body mass index [BMI] 25.0-25.9, adult
CPT/HCPCS: 36415; 71010; 71260; 74000; 74176; 74177; 78278; 80048; 80053; 80076; 81003; 81015; 82271; 82465; 82533; 83605; 83735; 84100; 84134; 84145; 84403; 84439; 84443; 84478; 84484; 85014; 85018; 85025; 85027; 85384; 85610; 85730; 86078; 86850; 86900; 86901; 86922; 87040; 87086; 88309; 93005; 94640; 94664; 94760; 99156; 99157; 99222; 99232; 99233; 99239; A9270-GY; A9512; A9538; C1776; J0694; J0744; J1170; J1642; J1644; J1720; J1885; J2001; J2185; J2250; J2270; J2310; J2405; J2704; J2765; J2997; J3010; J3430; J3480; P9040; Q9967